=== PATIENT | male | born 1960 | race Caucasian/White ===

== ENCOUNTER 2019-07-15 13:53 | Outpatient (CLI) | payer OTHER, SELFPAY ==
--- NOTE | ~2019-07-15 | CT_ITS ---
EXAMINATION: CT lung screening EXAM DATE: 07/15/2019 14:32 INDICATION: Personal history of nicotine dependence. TECHNIQUE: Spiral low dose CT of the chest without contrast. Axial, coronal and sagittal images were reviewed. The dose-length product (DLP) for this examination was 93.21 mGy-cm. The exposure was ta ilored according to patient size (auto mA exposure control), and iterative reconstruction (ASIR) was used as additional dose reduction technique. There is no prior study for comparison. FINDINGS: There are several solid and subsolid pulmonary nodules identified in the right lung. Linea r right lower lobe atelectasis. Tracheobronchial tree is patent. There is no mediastinal, hilar or axillary lymphadenopathy. There are no pleural or pericardial effusions. There is no pneumothora x. Heart normal in size. No evidence of coronary arterial calcification. Upper abdomen is unremar kable. There is thoracic spondylosis without osteoblastic or osteolytic lesions identified. IMPRESSION: Lung-RADS category 2, benign appearance or behavior (<1% chance of malignancy); recommend continued LDCT screening in 1 year. Reviewed, dictated and finalized at location B. NING ASSOCIATE
== END 2019-07-15 13:54 | disposition home or self-care (01) ==
PROVIDERS: Visit Provider Family Medicine
DX: Z12.2 Encounter for screening for malignant neoplasm of respiratory organs (principal); Z87.891 Personal history of nicotine dependence
CPT/HCPCS: G0297

== ENCOUNTER 2019-12-14 10:28 | Outpatient (CLI) | payer OTHER, SELFPAY ==
--- NOTE | 2019-12-19 12:06 | SLEEP_ITS ---
Home Sleep Test DATE OF STUDY: 12/14/2019 ORDERING PHYSICIAN: Dr. Chavez. REASON FOR THIS STUDY: Hypersomnolence. HISTORY: The patient is a 59-year-old male, 5 feet 8 inches tall weighing 175 pounds with a body mass index of 26.6. He has a history of constantly snoring loudly every night to the point it bothers other people. He rarely awakens at night with heartburn or belching. He does not awaken from sleep feeling short of breath. He has difficulty falling asleep and he wakes up in the director of cardiology service line hours. This has been going on several years. He occasionally has trouble sleeping with a cold. He does not wake up gasping for breath at night and does not have breathing problems witnessed at night by others. He does not sweat excessively at night. He does not notice his heart pounding or beating irregularly at night. He frequently falls asleep during the day occasionally involuntarily, never while driving. He does not have loss of muscle tone with strong emotion and does not have daytime difficulties due to excessive sleepiness. He does not feel paralyzed on waking or falling asleep and does not have vivid dreamlike scenes upon awakening or falling asleep. He is never afraid to go to sleep. He does not have nightmares. He occasionally has dreams that he can recall. He occasionally has racing thoughts. He occasionally has anxiety. He rarely feels sad or depressed. He frequently has muscular tension and notice his parts of his body jerking. He occasionally has crawly achy feelings in his legs. He frequently has leg pain at night. He never has morning jaw pain. He does not grind his teeth at night. He frequently is bothered by pain during the day as well as pain that wakes him at night and frequently wakes up feeling stiff in the morning. He occasionally wakes up with sore achy muscles. He frequently wakes up with pain in the neck and spine. He has headaches and takes antacids regularly. He goes to bed between 10 and 11 p.m. and will flop around during the night. He wakes in the morning at 5 to 5:30 a.m. He estimates 6 hours of sleep at night. He does take naps. A short nap may be refreshing. He does feel good in the morning. MEDICAL COMORBIDITIES: Hypertension, gastroesophageal reflux disease, neck and low back pain. MEDICATIONS: 1. Metoprolol succinate 25 mg a day. 2. Hydrochlorothiazide 25 mg a day. 3. Amlodipine besylate 10 mg a day. 4. [employer] acid control medications daily. 5. Nasal allergy spray daily. HABITS: Tobacco, 1 pack per day. Caffeine, 1 pot or 8 cups per day. No alcohol. DESCRIPTION OF THE STUDY: On the [place] Sleepiness Scale, the score is 6. This was conducted as an unattended type 3 portable home sleep test with 4 channel monitoring including respiratory effort channel, snoring channel, oxygen saturation channel, and heart rate channel. This study was scored using [facility] guidelines. Duration was 7 hours 6 minutes. The apnea-hypopnea index is 17, which is elevated. Oxygen desaturation index is 15.5. There were 59 apneas. There were 36% of the apneas or 21 were central, 36% of the apneas or 21 were mixed and 29% of the apneas or 17 apneas were obstructive. He had 61 hypopneas. There were 1105 snoring events and 110 desaturations. The patient's lowest desaturation is 82%. The patient spent 3 minutes or 1% of the study below 88%. IMPRESSION: 1. This is an abnormal home sleep test with evidence of at least moderate sleep-disordered breathing, which appears to be primarily central events, G47.31. He had 72% of the apneas being central or mixed, 29% obstructive and and 61 hypopneas. This patient does not have a known history of congestive heart failure, but I would recommend obtaining an echo to try to se
== END 2019-12-14 10:29 | disposition home or self-care (01) ==
LOC: ANHCSM 10:28
PROVIDERS: Visit Provider Family Medicine
DX: R40.0 Somnolence (principal); G47.10 Hypersomnia, unspecified; G47.31 Primary central sleep apnea; I10 Essential (primary) hypertension; M54.2 Cervicalgia; M54.5 Low back pain
CPT/HCPCS: 95806

== ENCOUNTER 2020-01-18 14:29 | Outpatient (CLI) | payer OTHER, SELFPAY ==
--- NOTE | 2020-01-18 14:57 | ECHO_ITS ---
Patient Info Name: Mitch Juarez Age: 59 years : 1960 Gender: Male Ht: 67 in Wt: 176 lbs BSA: 1.96 m2 HR: 65 bpm BP: 114 / 89 mmHg Heart Rhythm: Sinus Rhythm Technical Quality: Good Exam Date: 01/18/2020 3:04 PM Exam Location: [facility] Pulmonary Patient Status: Outpatient Admit Date: 01/18/2020 Staff Ordering Physician: Warren Chavez MD Physician Gynecologist: Gopal Alicea RDCS Attending Provider: Warren Chavez MD Exam Type: CA echo doppler color flow Study Info Indications I10 - Essential (primary) hypertension Complete two-dimensional, color flow and Doppler transthoracic echocardiogram is performed. History/Risk Factors HTN, sleep apnea. Summary 1. Complete two-dimensional, color flow and Doppler transthoracic echocardiogram is performed. 2. Left ventricular chamber dimension is normal. 3. Left ventricular systolic function is normal, estimated at 65-70%. 4. There is mildly increased left ventricular wall thickness. 5. The left ventricular diastolic function is grade I diastolic dysfunction. 6. E/e' 7 is not elevated. 7. No pulmonary hypertension, estimated pulmonary arterial systolic pressure is 29 mmHg. Left Ventricle E/e' 7 is not elevated. Left ventricular chamber dimension is normal. Left ventricular systolic function is normal, estimated at 65-70%. There is mildly increased left ventricular wall thickness. The left ventricular diastolic function is grade I diastolic dysfunction. Right Ventricle Right ventricular chamber dimension is not well visualized. Left Atria Left atrial chamber dimension is normal. Right Atria Right atrial chamber dimension is normal. Aortic Valve The aortic valve is trileaflet. There is no aortic valve stenosis. There is no aortic valve regurgitation. Pulmonic Valve There is no pulmonic regurgitation. Mitral Valve There is no mitral valve stenosis. There is no mitral valve regurgitation. Tricuspid Valve There is no tricuspid valve regurgitation. No pulmonary hypertension, estimated pulmonary arterial systolic pressure is 29 mmHg. Pericardium/Pleural There is no pericardial effusion. Inferior Vena Cava Normal inferior vena cava with >50% collapse upon inspiration consistent with normal right atrial pressure, 5 mmHg. Aorta The aortic root size at the sinus of Valsalva is normal. Left Ventricular Outflow Tract Name Value Normal LVOT 2D LVOT Diameter 2.0 cm LVOT Doppler LVOT Peak Gradient 2 mmHg LVOT Mean Gradient 1 mmHg LVOT VTI 17 cm LVOT VTI/AV VTI Ratio 1.0 LVOT Stroke Volume 54 ml LVOT CO 3.5 l/min LVOT CI 1.8 l/min/m2 Mitral Valve Name Value Normal MV Doppler
== END 2020-01-18 14:30 | disposition home or self-care (01) ==
PROVIDERS: Visit Provider Family Medicine
DX: G47.39 Other sleep apnea (principal); I10 Essential (primary) hypertension
CPT/HCPCS: 93306

== ENCOUNTER 2020-03-28 00:22 | Outpatient (CLI) | payer OTHER, SELFPAY ==
[2020-03-28 18:51] LABS: SARS-CoV-2 RNA PCR Negative
== END 2020-03-28 00:23 | disposition home or self-care (01) ==
LOC: ANHCOVIDDT 00:23
PROVIDERS: PCP Family Medicine; Visit Provider Internal Medicine Critical Care Medicine
DX: Z01.812 Encounter for preprocedural laboratory examination (principal); Z20.828 Contact with and (suspected) exposure to other viral communicable diseases
CPT/HCPCS: 87635; C9803; U0003

== ENCOUNTER 2020-03-30 06:27 | Outpatient (CLI) | payer OTHER, SELFPAY ==
--- NOTE | 2020-04-29 10:39 | WPDSLEEPSTUD ---
Sleep Study Date of Study: 03/30/20 Ordering Provider: ,. Interpreting Physician: Sleep Study Type: CPAP Titration Height: 1.73 m Weight: 79.379 kg Body Mass Index: 26.6 Neck Circumference: 43.18 cm [place]: 6 Reason for Sleep Study Patient has longstanding history of snoring, and has hypertension requiring multiple medications. Few months ago patient had home sleep study with an apnea-hypopnea index of 17. Many episodes were central in nature, patient was therefore referred for a CPAP titration study. Sleep History Snoring, tendency to take naps in the afternoon. Comorbid conditions include hypertension requiring multiple medications, nasal allergies, gastroesophageal reflux. [facility] Past Medical History Medical History (Updated 02/09/20 @ 10:24 by Jessica Marion MD) Carpal tunnel syndrome of right wrist Chronic neck and back pain Diverticulitis of intestine with perforation of peritonitis Essential (primary) hypertension Hx of diverticulitis of colon Tobacco abuse Surgical History Surgical History (Updated 02/09/20 @ 10:23 by Jessica Marion MD) History of ankle surgery left History of carpal tunnel surgery History of colon surgery 2008 and removed partial colon History of thumb surgery Family History Family History (Updated 02/09/20 @ 10:24 by Jessica Marion MD) Mother Diabetes mellitus Obstructive sleep apnea on CPAP Father Hypertension Family history of emphysema Social History Social History Smoking packs per day: 1 Smoking cigarettes per day: 20.0 Years smoked: 46 Smoking pack-years: 46.00 Smoking status: Current every day smoker Tobacco type: cigarettes Second hand tobacco smoke exposure: Yes Alcohol intake: former Substance use: never Substance use type: does not use Medications Home Medications Medication Instructions Recorded Confirmed Type acetaminophen 500 mg tablet 500 mg PO Q4-6H PRN tablet 06/23/19 History hydrochlorothiazide 25 mg tablet See Rx Instructions .ROUTE 10/04/19 Rx .COMPLEX #90 tablet amlodipine 10 mg tablet 10 mg PO DAILY #90 tablet 12/02/19 Rx famotidine 20 mg tablet 20 mg PO DAILY 02/09/20 History fluticasone propionate 50 1 spray NASAL DAILY 02/09/20 History mcg/actuation nasal spray,suspension zolpidem 5 mg tablet 5 mg PO ONCE #2 tablet 02/09/20 Rx metoprolol succinate 25 mg 25 mg PO DAILY #90 tablet 03/01/20 Rx tablet,extended release 24 hr Sleep Procedure Patient underwent CPAP titration study. Nasal interface used was [employer] P10 nasal pillows of small size. Sleep Architecture Total recording time 407 minutes, total sleep time 358 minutes sleep efficiency 88%. Sleep latency 6.3 minutes, REM latency 115 minutes. Sleep stages patient was awake after sleep onset for 43 minutes, stage N1 was 7% stage N2 77.3% and stage R 15.8%. Supine sleep 50.3%. Respiratory Analysis During CPAP titration patient had 2 central apneas there were no obstructive or mixed apneas. Apnea index 0.3. There were 7 hypopneas with index of 1.2 Apnea-hypopnea index was 1.5. Arousals Patient had 62 arousals. Sixty of the arousals were spontaneous. Periodic Limb Movements No leg movements identified. Oximetry Data Mean oxygen saturation 93.6, maximum saturation 98, minimum saturation 91. Snoring Profile Intermittent snoring noted, on occasion loud. Cardiac Profile Sinus rhythm average heart rate 60 beats per minute range 54 to 109 beats per minute. EEG Profile Unremarkable EEG Assessment and Plan Additional Plan patient's CPAP was initiated at 5 cm and because of respiratory events was titrated to a level of 9 cm which was the highest pressure reached. At CPAP of 9 cm, patient had 2 hours and 16 minutes of trial, 1 hour 35 minutes of non-REM sleep and 9.5 minutes of REM sleep occurred. The REM sleep w
[2020-04-29 11:00] VITALS: BMI 26.6
== END 2020-03-30 06:28 | disposition home or self-care (01) ==
LOC: ANHCSM 06:27
PROVIDERS: PCP Family Medicine; Visit Provider Internal Medicine Critical Care Medicine
DX: G47.31 Primary central sleep apnea (principal)
CPT/HCPCS: 95811

== ENCOUNTER 2020-07-27 15:39 | Emergency (ER) | payer OTHER, SELFPAY ==
--- NOTE | 2020-07-27 17:16 | PC.NURSE ---
1540 upon arrival requests diagnostics to determine if his abdominal pain/bloating is a result of using his new c-pap machine or a recurrence of diverticulitis. informed provider would see and evaluate him, however, this facility could not provide blood work/ultrasound/ct scans for diagnostics. pt states he does not want to be seen at this time and would go directly to er, because he not want to pay 2 bills. observed talkative in no distress.
== END 2020-07-27 15:40 | disposition left against medical advice (07) ==
PROVIDERS: Emergency Provider Nurse Practitioner; PCP Family Medicine
DX: Z53.21 Procedure and treatment not carried out due to patient leaving prior to being seen by health care provider (principal)
CPT/HCPCS: 99199

== ENCOUNTER 2020-07-27 16:16 | Observation (INO) | payer OTHER, SELFPAY ==
--- NOTE | ~2020-07-27 | CT_ITS ---
EXAMINATION: CT abdomen pelvis wo con DATE: 07/27/2020 16:57 INDICATION: Right lower quadrant abdominal pain. TECHNIQUE: Computed tomography (CT) of the abdomen and pelvis was performed without intravenous contr ast. Automated exposure control and iterative reconstruction technique were employed. The dose-length product was 592.03 mGy-cm. COMPARISON: CT abdomen 10/12/2007 FINDINGS: The visualized portions of the lung bases demonstrate mild atelectasis on the right. There are 5 mm and 3 mm nodules in right middle lobe, likely benign. No pleural effusion. The heart size is normal. No pericardial effusion. There is diffuse hepatic steatosis. Calcifications in the spleen ar e consistent with old granulomatous disease. The gallbladder, pancreas, adrenal glands, and kidneys a re normal. There is no urolithiasis. There is an anastomosis in the rectosigmoid. There is diverticul osis of the colon. The appendix is normal. There is a 2.0 cm calcification in a diverticulum of ascen ding colon with surrounding fat stranding and local bowel wall thickening, consistent with diverticul itis. There are no pathologically enlarged lymph nodes. There is no free intraperitoneal fluid. There is moderate lumbar spondylosis. IMPRESSION: 1. Diverticulitis of ascending colon. No perforation or abscess. Reviewed, dictated and finalized at location A. STIGATOR
[2020-07-27 16:18] VITALS: BP 129/99; PULSE 76; RESP 16; TEMP 36.4; O2SAT 100
[2020-07-27 17:18] LABS: Basophils Absolute Auto 0.1 K/mm3 (0.0-0.1); Basophils Percent Auto 0.6 % (0.2-1.2); Eosinophils Absolute Auto 0.2 K/mm3 (0-0.3); Eosinophils Percent Auto 1.9 % (0-4.4); Hematocrit 46.1 % (42.0-52.0); Hemoglobin 16.4 g/dL (14.0-18.0); Immature Granulocyte Absolute 0.05 K/mm3 (0.00-0.031); Immature Granulocyte Percent A 0.4 % (0-0.5); Lymphocytes Absolute Auto 2.35 K/mm3 (0.9-3.2); Lymphocytes Percent Auto 19.7 % (18.3-44.2); Mean Corpuscular HGB Conc 35.6 g/dl (32-36); Mean Corpuscular Hemoglobin 31.6 pg (26-34); Mean Corpuscular Volume 88.8 fl (80-100); Mean Platelet Volume 9.6 fl (7.4-10.4); Monocytes Absolute Auto 1.5 K/mm3 (0.1-0.6); Monocytes Percent Auto 12.1 % (2.6-8.5); Neutrophils Absolute Auto 7.8 K/mm3 (1.3-6.7); Neutrophils Percent Auto 65.3 % (45.5-73.1); Platelet Count Result 228 k/mm3 (150-375); Red Blood Count 5.19 M/mm3 (4.6-6.20); Red Cell Distribution Width 12.5 % (11.5-14.5); White Blood Count 11.9 K/mm3 (4.5-10.0)
[2020-07-27 17:32] LABS: Alanine Aminotransferase 30 U/L (4-50); Albumin Level 4.2 g/dL (3.5-5.1); Alkaline Phosphatase 66 U/L (38-126); Anion Gap 7 mmol/L (8-16); Aspartate Amino Transferase 24 U/L (17-59); Bilirubin,Total 0.6 mg/dL (0.2-1.3); Blood Urea Nitrogen 14 mg/dL (9-20); Calcium 9.2 mg/dL (8.4-10.2); Carbon Dioxide 31 mmol/L (22-30); Chloride 102 mmol/L (98-107); Estimated CRCL calculation 81 ml/min; Estimated Glomerular Filt Rate > 60; Glucose 90 mg/dL (75-110); Potassium 3.7 mmol/L (3.4-5.0); Sodium 140 mmol/L (137-145)
--- NOTE | 2020-07-27 17:37 | ED.ABDPAIN ---
HPI - Abdominal Pain General Chief Complaint: Abdominal Pain Stated Complaint: abd pain Time Seen by Provider: 07/27/20 16:32 Source: patient Mode of arrival: ambulatory Limitations: no limitations History of Present Illness HPI narrative: 60-year-old male History of prior colon resection for diverticulitis, most recently in 2018, and that his gallbladder and appendix remain in situ following those procedures Complains of a 2-day history of lower abdominal pain Discomfort is worsened and localized to the right mid abdomen and flank area Has had nausea and tended towards constipation, continues to pass gas Notes that he recently started using CPAP at night and this was resulted in some issues with abdominal bloating and distention and discomfort as well He has not had a fever, and he did eat lunch earlier today Related Data Home Medications Medication Instructions Recorded Confirmed acetaminophen 500 mg tablet 500 mg PO Q4-6H PRN tablet 06/23/19 famotidine 20 mg tablet 20 mg PO DAILY 02/09/20 07/27/20 fluticasone propionate 50 1 spray NASAL DAILY 02/09/20 07/27/20 mcg/actuation nasal spray,suspension Allergies Allergy/AdvReac Type Severity Reaction Status Date / Time tetanus toxoid, adsorbed Allergy Unknown TOLD Verified 07/27/20 15:45 CHILD--???REACTION Tetanus Vaccines and Toxoid Allergy Unknown Unknown Verified 07/27/20 16:23 Review of Systems Review of Systems: All systems reviewed & are unremarkable except as noted in HPI and below Constitutional: Constitutional: Denies chills, Denies fatigue, Denies fever(s), Denies headache(s) and Denies weakness Eyes: Eyes: Reports no additional eye complaints and Denies change in vision ENT: Denies headache(s), Denies nasal congestion and Denies sore throat Cardiovascular: Cardiovascular: Denies chest pain, Denies leg edema, Denies palpitations and Denies dyspnea Respiratory: Respiratory: Denies cough and Denies dyspnea Gastrointestinal: Gastrointestinal: Reports abdominal pain, Reports bloating, Reports constipation, Denies diarrhea, Reports nausea and Denies vomiting Genitourinary: Genitourinary: Denies hematuria, Denies dysuria and Denies urinary frequency Musculoskeletal: Musculoskeletal: Denies myalgias, Denies deformity, Denies muscle weakness and Denies numbness Integumentary/Breasts: Skin/Breast: Denies rash and Denies wounds Neurologic: Denies headache(s) Endocrine: Endocrine: Denies fatigue and Denies palpitations Hematologic/Lymphatic: Hematologic/Lymphatic: Denies easy bleeding and Denies easy bruising PMFSH Past Medical History Medical History (Updated 07/27/20 @ 18:34 by Edgar Griffith MD) Carpal tunnel syndrome of right wrist Chronic neck and back pain Diverticulitis of intestine with perforation of peritonitis Essential (primary) hypertension Hx of diverticulitis of colon Tobacco abuse Surgical History Surgical History (Updated 02/09/20 @ 10:23 by Jessica Marion MD) History of ankle surgery left History of carpal tunnel surgery History of colon surgery 2008 and removed partial colon History of thumb surgery Family History Family History (Updated 02/09/20 @ 10:24 by Jessica Marion MD) Mother Diabetes mellitus Obstructive sleep apnea on CPAP Father Hypertension Family history of emphysema Social History Social History Smoking packs per day: 1 Smoking cigarettes per day: 20.0 Years smoked: 46 Smoking pack-years: 46.00 Smoking status: Current every day smoker Tobacco type: cigarettes Second hand tobacco smoke exposure: Yes Alcohol intake: former Substance use: never Substance use type: does not use Gender identity (if verbalized by the patient): Male Exam Const: General: no acute distress, well developed, alert and awake Nutritional Appearance: well nourished Orientation/consciousness: patient oriented x3 (alert)
[2020-07-27 17:46] VITALS: BP 113/90; PULSE 78; RESP 18; O2SAT 99
[2020-07-27 18:24] LABS: Add Urine Microscopic? YES; Appearance Urine Clear (Clear); Bilirubin Urine Negative (Negative); Blood Urine 1+ (Negative); Color Urine Yellow (Yellow); Glucose Urine UA Negative (Negative); Ketones Urine Negative (Negative); Leukocyte Esterase Ur Negative LEU/UL (Negative); Mucus Urine Moderate /lpf; Nitrate Urine Negative (Negative); Protein Urine Negative (Negative); Specific Grav Ur 1.018 (1.001-1.035); Urobilinogen Urine Negative mg/dL (<2.0); WBC Urine 0-3 /hpf
[2020-07-27] MEDS: LACTATED RINGERS 1,000 ML 150 ML IV CONT ×2 (18:37→20:32)
--- NOTE | 2020-07-27 19:46 | ADMGEN ---
This patient, Mitch Juarez Jr., was admitted to Medical Room 340-01. Patient/family oriented to hospital policies and general routines including ID bracelet, bed and alarms, visiting hours, pain management, procedures, bathroom and other care routines, personal items, smoking policy, room service/diet, and visiting hours. Information on how to activate the Rapid Response Team has been discussed. Patient/Family are encouraged to report perceived risks to care and to ask questions if they do not understand what they are told or what they should do.
[2020-07-27 19:47] VITALS: BP 130/93; PULSE 71; RESP 18; TEMP 36.8; O2SAT 99; BMI 28.0
[2020-07-27 19:55] VITALS: BP 130/93; PULSE 71; TEMP 36.8; BMI 28.0
[2020-07-27 21:55] VITALS: O2SAT 97
--- NOTE | 2020-07-27 23:29 | PM.IMHP ---
H&P: HPI History of Present Illness Date/Time: 07/27/20 23:29 this is a 60-year-old male who has had a history of diverticulitis in the past. The patient had a history of diverticulitis with perforation past and infection. The also had a diverticulitis that was treated in the office in the past as well. The patient had his Matt Gutierrez is COVID 19 vaccine past Thursday and then started having abdominal pain the next day. Initially he felt that he was having side effects from injection. His pain started approximately 2 days ago he had right lower quadrant flank pain. He was having difficulty walking due to the pain. He has not taken anything for the discomfort. His pain continued to get worse. He had no fever chills. No nausea, vomiting, or diarrhea. The patient has not had a bowel movement 2 days. He has not tried any laxatives. CT of the abdomen and pelvis was read as diverticulitis of ascending colon. No perforation or abscess seen.On Zosyn. 2.0 cm calcification and a diverticulum of ascending colon with surrounding fat stranding and local bowel wall thickening consistent with diverticulitis. Surgery had been consulted since there was a calcification in the diverticulum. The patient does have a history of sleep apnea but is not concerned about using his CPAP tonight. He also has a history of bronchitis and is requesting to see his automotive general manager even though he is not having any respiratory problems at this time. White count is noted to be 11.9. I explained to the patient that sometimes diverticulitis diagnosis could be admitted for up to 3 days or more. The patient stated he would like to go home tomorrow. He is being admitted to inpatient on 07/27/2020 date of service. Chief Complaint: Abdominal pain Review of Systems Review of Systems: All systems reviewed & are unremarkable except as noted in HPI and below Constitutional: Constitutional: Reports as per HPI and Reports no additional constitutional complaints Eyes: Eyes: Reports as per HPI and Reports no additional eye complaints ENT: Reports system reviewed and no additional complaints, except as documented and Reports Normal hearing present Cardiovascular: Cardiovascular: Reports no additional cardiovascular complaints Respiratory: Respiratory: Reports no additional respiratory complaints and Reports no additional respiratory complaints Gastrointestinal: Gastrointestinal: Reports as per HPI and Reports no additional gastrointestinal complaints Musculoskeletal: Musculoskeletal: Reports no additional musculoskeletal complaints Integumentary/Breasts: Skin/Breast: Reports system reviewed and no additional complaints, except as docu and Reports as per HPI Neurologic: Reports system reviewed and no additional complaints, except as documented, Reports as per HPI and Reports Normal hearing present Psychiatric: Psychiatric: Reports no additional psychiatric complaints and Reports as per HPI Endocrine: Endocrine: Reports no additional endocrine complaints Hematologic/Lymphatic: Hematologic/Lymphatic: Reports no additional hematologic/lymphatic complaints Allergic/Immunologic: Allergic/Immunologic: Reports no additional allergic/immunologic complaints [facility] Past Medical History Medical History (Updated 07/27/20 @ 23:49 by Latosha Quinteros NP) Carpal tunnel syndrome of right wrist Chronic bronchitis Chronic neck and back pain Diverticulitis of intestine with perforation of peritonitis Essential (primary) hypertension Hx of diverticulitis of colon Tobacco abuse Surgical History Surgical History (Updated 07/27/20 @ 23:49 by Latosha Quinteros NP) History of ankle surgery left History of carpal tunnel surgery Right hand History of colon surgery 2008 and removed partial colon History of thumb surgery S/P cubital tunnel release Family History Family History Mother Diabetes mellitus Obstructive sleep apnea
[2020-07-28 02:36] LABS: Basophils Absolute Auto 0.1 K/mm3 (0.0-0.1); Basophils Percent Auto 0.5 % (0.2-1.2); Eosinophils Absolute Auto 0.2 K/mm3 (0-0.3); Eosinophils Percent Auto 1.9 % (0-4.4); Hematocrit 42.1 % (42.0-52.0); Hemoglobin 14.9 g/dL (14.0-18.0); Immature Granulocyte Absolute 0.05 K/mm3 (0.00-0.031); Immature Granulocyte Percent A 0.4 % (0-0.5); Lymphocytes Absolute Auto 2.01 K/mm3 (0.9-3.2); Lymphocytes Percent Auto 16.5 % (18.3-44.2); Mean Corpuscular HGB Conc 35.4 g/dl (32-36); Mean Corpuscular Hemoglobin 31.4 pg (26-34); Mean Corpuscular Volume 88.6 fl (80-100); Mean Platelet Volume 9.6 fl (7.4-10.4); Monocytes Absolute Auto 1.5 K/mm3 (0.1-0.6); Monocytes Percent Auto 11.9 % (2.6-8.5); Neutrophils Absolute Auto 8.4 K/mm3 (1.3-6.7); Neutrophils Percent Auto 68.8 % (45.5-73.1); Platelet Count Result 198 k/mm3 (150-375); Red Blood Count 4.75 M/mm3 (4.6-6.20); Red Cell Distribution Width 12.4 % (11.5-14.5); White Blood Count 12.2 K/mm3 (4.5-10.0)
[2020-07-28 02:47] LABS: Alanine Aminotransferase 25 U/L (4-50); Albumin Level 3.6 g/dL (3.5-5.1); Alkaline Phosphatase 59 U/L (38-126); Anion Gap 3 mmol/L (8-16); Aspartate Amino Transferase 20 U/L (17-59); Bilirubin,Total 1.3 mg/dL (0.2-1.3); Blood Urea Nitrogen 11 mg/dL (9-20); Calcium 8.9 mg/dL (8.4-10.2); Carbon Dioxide 29 mmol/L (22-30); Chloride 105 mmol/L (98-107); Estimated CRCL calculation 92 ml/min; Estimated Glomerular Filt Rate > 60; Glucose 109 mg/dL (75-110); Magnesium 1.8 mg/dL (1.6-2.3); Potassium 3.6 mmol/L (3.4-5.0); Sodium 137 mmol/L (137-145)
--- NOTE | 2020-07-28 03:32 | PCRCNOTE ---
PT WEARS CPAP AT HOME BUT HAS C/O EXCESSIVE GAS/BLOATING SINCE HOME CPAP INITIATED. HE DOES NOT WANT TO USE HOSPITAL CPAP AT THIS TIME UNTIL HE SPEAKS WITH COMPOUND FINISHER. JEAN THURSTON WAS NOTIFIED OF PT CONCERNS.
[2020-07-28] MEDS: LACTATED RINGERS 1,000 ML 150 ML IV CONT (03:59)
[2020-07-28 05:42] VITALS: BP 123/74; PULSE 61; RESP 18; TEMP 37.3; O2SAT 98
[2020-07-28 08:08] VITALS: O2SAT 98
[2020-07-28 08:34] VITALS: PULSE 61
[2020-07-28] MEDS: METOPROLOL SUCCINATE EXT REL 25 MG TABCR PO (08:34)
[2020-07-28] MEDS: amLODIPine BESYLATE 5 MG TABLET 10 MG PO (08:34)
[2020-07-28] MEDS: hydroCHLOROthiazide 25 MG TABLET PO (08:35)
--- NOTE | 2020-07-28 10:32 | PM.CNGS ---
Assessment and Plan Assessment and plan (1) Diverticulitis large intestine w/o perforation or abscess w/o bleeding: Code(s): K57.32 - Diverticulitis of large intestine without perforation or abscess without bleeding Status: Acute Assessment and Plan: unusual case of ascending colon diverticulitis after having sigmoidectomy for sigmoid diverticulitis 13 years ago. I explained the difference to the patient. This is also unique in that there is a sizable fecalith associated with a diverticulum that appears to be inflamed on CT scan. I reviewed some literature regarding this and reports are very scarce. There is no difference in management for a fecalith associated with diverticulitis than without of fecalith as best I can tell. Patient is doing much better today with pain being essentially gone and having had a bowel movement. I will keep him in the hospital today however and continue IV Zosyn antibiotics. Will start full liquids and this can be advanced to low residue diet later today if patient tolerates okay. I did explain to him that should his pain recur, we would probably be looking at a right colectomy. This should not require another stoma. Continue Zosyn, recheck labs again tomorrow, start oral intake and ambulate. Hopefully patient will continue to improve and can be discharged tomorrow. (2) Fecalith: Code(s): K56.41 - Fecal impaction Status: Chronic Assessment and Plan: One option may be to have colonoscopy in 4-6 weeks and consider endoscopic removal of the fecalith. I may have GI see him as an outpatient to consider this. Discussed this with the patient as well. (3) Tobacco abuse: Code(s): Z72.0 - Tobacco use Status: Chronic Assessment and Plan: Advised to quit. (4) Essential (primary) hypertension: Code(s): I10 - Essential (primary) hypertension Status: Chronic (5) Chronic bronchitis: Code(s): J42 - Unspecified chronic bronchitis Status: Chronic (6) Central sleep apnea: Code(s): G47.31 - Primary central sleep apnea Status: Chronic History of Present Illness Consult details Consult date: 07/28/20 Reason for consult: abdominal pain Requesting physician: Edgar Griffith MD Narrative: Patient is a 60-year-old man who started having right-sided abdominal pain about 2 days ago on July 25. He had received A [employer] COVID vaccination 2 days prior to that and initially thought that his abdominal pain was a consequence of the vaccine. The pain got worse. He had not had a bowel movement for a couple of days. He came to the emergency room. He was noted to have right-sided abdominal tenderness with some guarding. His white blood cell count was elevated to 11,900. He had a history in 2007 of sigmoidectomy with Shelly procedure and descending colostomy. He later that year had laparoscopic closure of his colostomy. This surgery was done for sigmoid diverticulitis. The patient had a CT scan of the abdomen and pelvis in the emergency room. This showed ascending colon diverticulitis with the unusual finding of a 2 cm calcification in the offending diverticulum. No free air or other complicating factors were noted with the CT scan. The patient has been on Zosyn and bowel rest since admission. He feels much better this morning. He has not had anything for pain. He is a smoker and consequently would very much like to go home today. He has no nausea and vomiting. He has not had any problems with diverticulitis since his surgery in 2007 until the current episode. Review of Systems Review of Systems: All systems reviewed & are unremarkable except as noted in HPI and below Constitutional: Constitutional: Denies chills and Denies fever(s) Cardiovascular: Cardiovascular: Denies chest pain, Denies diaphoresis, Denies dyspnea and Denies paroxysmal nocturnal dyspnea Respiratory: Respiratory: Denies chest congestion, Denies cou
--- NOTE | 2020-07-28 12:00 | PM.IMPN ---
Progress Note: A&P Assessment and Plan (1) Diverticulitis: Code(s): K57.92 - Diverticulitis of intestine, part unspecified, without perforation or abscess without bleeding Status: Acute Assessment and Plan: Ascending colon diverticulitis with 2.0cm calcification in a diverticulum of the ascending colon consistent with fecalith. He has a hx of sigmoidectomy for diverticulitis in 2007. WBC mildly increased but clinically, patient is much better. He is afebrile. Appreciate general surgery consult and recommendations. Pt demonstrates significant improvement with antibiotic therapy and may require right colectomy in the future should pain recur. Additional consideration includes GI consultation outpatient in 4-6 weeks for endoscopic removal of fecalith. Will defer this decision to general surgery. Continue IV zosyn Advance diet as tolerated Continue analgesics as needed Stop IV fluids as pt is tolerating PO intake well (2) Essential (primary) hypertension: Code(s): I10 - Essential (primary) hypertension Status: Chronic Assessment and Plan: Blood pressures are at target. Most recent BP 123/74. Continue amlodipine, metoprolol, and hydrochlorothiazide Continue to monitor (3) Tobacco abuse: Code(s): Z72.0 - Tobacco use Status: Chronic Assessment and Plan: He is smoking just under 1PPD. He has approximately 46 pack-year smoking hx. He declines nicotine patch I had a long discussion with the patient for 10 minutes today regarding adverse effects of smoking and he verbalized understanding but demonstrates no motivation to quit and asked that I stop discussing this since it makes him crave a cigarette. I still reiterated the risk of adverse cardiovascular outcomes, risk for cancer, etc. and he verbalized understanding. (4) Central sleep apnea: Code(s): G47.31 - Primary central sleep apnea Status: Chronic Assessment and Plan: He reports some gas discomfort with bloating, flatulence, and belching after CPAP use. Continue CPAP titrated to home settings He is scheduled to see his co chairman, Dr. Marion, and I will reach out to pulmonology to see if they have any recommendations to minimize this. Subjective Date/time seen: 07/28/20 12:00 Mr. Juarez is a 60 y.o. male with PMH significant for diverticulitis with sigmoidectomy with Shelly procedure and descending colostomy in 2007, hypertension, chronic bronchitis, CAMRYN, and tobacco dependence who is seen in follow-up for diverticulitis. He is doing well today. His abdominal pain has improved significantly. He has a bit of discomfort when he gets up to move around in his right lower abdomen but pain is much better. He was advanced to full liquid diet which he is tolerating well. He has no nausea or vomiting. He had a bowel movement with regular formed stool. He denies subjective fever and chills. He denies chest pain and palpitations. He denies shortness of breath and cough. He does note some abdominal bloating, belching, and flatulence associated with his CPAP and is scheduled to see Dr. Marion to discuss this. He has no voiding concerns. Review of Systems Review of Systems: All systems reviewed & are unremarkable except as noted in HPI and below Exam Narrative: Exam Narrative: General: Very pleasant, well-developed, and well-nourished 60 y.o. male sitting in the chair at the bedside eating lunch in no acute distress. HEENMT: Normocephalic and atraumatic. EOMI. Corrective lenses in place. Oral mucosa tacky. Neck: Supple. Cardiac: Regular rate and rhythm. S1 and S2 normal. Lungs: Effort normal. Lungs are clear to auscultation bilaterally. Abdomen:LLQ scar from prior colostomy which is healed. Lower midline scar from bowel resection, healed. Bowel sounds normoactive. Abdomen is soft, non-distended, and very mildly tender at right mid abdomen. No guarding or rebound tenderness. Extremities:
[2020-07-28 13:25] VITALS: BP 122/81; PULSE 70; RESP 20; TEMP 36.8; O2SAT 96
[2020-07-28] MEDS: FAMOTIDINE 20 MG TABLET PO (17:03)
[2020-07-28] MEDS: FLUTICASONE PROPIONATE 0.05% NA SPR 16 GM BTL (*BKC) 1 SPRAY NASAL (17:03)
[2020-07-28] MEDS: ACETAMINOPHEN 500 MG TABLET PO (17:11)
[2020-07-28 19:41] VITALS: BP 104/83; PULSE 65; RESP 18; TEMP 36.8; O2SAT 98
--- NOTE | 2020-07-29 03:22 | PC.NURSE ---
Daylight Savings Time For Daylight Savings Time Ending in the Fall - Clocks are moved back. For Daylight Savings Time Beginning in the Spring - Clocks are moved ahead. For [facility], the time of change occurs at 0200 hrs. Time is taken from the server software engineer. This entry on the patient's chart recognizes the change in time reflected during documentation. Example: 2 entries for vital signs may be charted for 0200 hrs.
[2020-07-29 05:28] VITALS: BP 108/78; PULSE 67; RESP 12; TEMP 37.1; O2SAT 98
[2020-07-29 06:00] LABS: Hemoglobin 14.8 g/dL (14.0-18.0); Mean Corpuscular HGB Conc 34.4 g/dl (32-36); Mean Corpuscular Hemoglobin 30.9 pg (26-34); Mean Corpuscular Volume 89.8 fl (80-100); Mean Platelet Volume 9.6 fl (7.4-10.4); Platelet Count Result 217 k/mm3 (150-375); Red Blood Count 4.79 M/mm3 (4.6-6.20); Red Cell Distribution Width 12.3 % (11.5-14.5); White Blood Count 10.2 K/mm3 (4.5-10.0)
[2020-07-29 06:16] LABS: Anion Gap 5 mmol/L (8-16); Blood Urea Nitrogen 15 mg/dL (9-20); Calcium 8.9 mg/dL (8.4-10.2); Carbon Dioxide 28 mmol/L (22-30); Chloride 106 mmol/L (98-107); Estimated CRCL calculation 73 ml/min; Estimated Glomerular Filt Rate > 60; Glucose 108 mg/dL (75-110); Potassium 3.9 mmol/L (3.4-5.0); Sodium 139 mmol/L (137-145)
[2020-07-29 08:26] VITALS: PULSE 67
[2020-07-29] MEDS: METOPROLOL SUCCINATE EXT REL 25 MG TABCR PO (08:26)
[2020-07-29] MEDS: hydroCHLOROthiazide 25 MG TABLET PO (08:26)
[2020-07-29] MEDS: amLODIPine BESYLATE 5 MG TABLET 10 MG PO (08:27)
[2020-07-29] MEDS: ACETAMINOPHEN 500 MG TABLET PO (08:31)
--- NOTE | 2020-07-29 10:05 | PM.PNGS ---
Progress Note: A&P Assessment and Plan (1) Diverticulitis large intestine w/o perforation or abscess w/o bleeding: Code(s): K57.32 - Diverticulitis of large intestine without perforation or abscess without bleeding Status: Acute Assessment and Plan: patient continues to improve. Essentially no pain at all at this time. Discussed with Cheyanne Blanco, PAC, hospitalist. okay to discharge on a low residue diet and oral antibiotics for another 7 days. I will see him in the office in 2 weeks. We will consider colonoscopy for attempt at removal of the fecalith. All questions were answered. (2) Fecalith: Code(s): K56.41 - Fecal impaction Status: Chronic Assessment and Plan: Not clear the significance of this in recurrence of ascending colon diverticulitis. Definitely makes recurrence a concern. See above. (3) Tobacco abuse: Code(s): Z72.0 - Tobacco use Status: Chronic (4) Central sleep apnea: Code(s): G47.31 - Primary central sleep apnea Status: Chronic Assessment and Plan: Will discuss CPAP settings with Dr. Marion as an outpatient. (5) Essential (primary) hypertension: Code(s): I10 - Essential (primary) hypertension Status: Chronic Subjective Subjective Date/Time Seen: 07/29/20 10:05 Patient reports: no new complaints, pain is less and afebrile Interval history: Only discomfort is when he turns in bed. Otherwise completely pain-free. Review of Systems Review of Systems: All systems reviewed & are unremarkable except as noted in HPI and below Constitutional: Constitutional: Denies headache(s) Cardiovascular: Cardiovascular: Denies chest pain and Denies dyspnea Respiratory: Respiratory: Denies cough, Denies dyspnea and Reports other ( Has a lot of gas from using his CPAP device) Gastrointestinal: Gastrointestinal: Reports as per HPI Neurologic: Denies confusion and Denies headache(s) Exam Const: General: comfortable and no acute distress; No confusion Orientation/consciousness: patient oriented x3 and No confusion GI: Inspection: normal to inspection, non-distended and scar GI Palp: Yes Soft to palpation, No Tenderness to palpation present (GI), No Guarding due to palpation present (GI), No Palpable mass present and No Rebound tenderness present Auscultation: normoactive bowel sounds Neuro: General: patient oriented x3, no focal motor deficits and No confusion Extrem: General: no calf tenderness and no edema Psych: Affect: normal affect Insight: Good insight present (Psych) Judgement: Good judgement present (Psych) Objective Data Vital Signs Vital Signs: Vital Signs - 24 hr 07/28/20 13:25 07/28/20 19:41 07/29/20 05:28 Temperature 36.8 C 36.8 C 37.1 C Pulse Rate 70 65 67 Respiratory Rate 20 18 12 Blood Pressure 122/81 104/83 108/78 Pulse Oximetry 96 98 98 07/29/20 08:26 Temperature Pulse Rate 67 Respiratory Rate Blood Pressure Pulse Oximetry Intake/Output Intake/Output: Intake & Output 07/26/20 07/27/20 07/28/20 07/30/20 23:59 23:59 23:59 00:59 Intake Total 1050 3120 740 Output Total 650 2050 450 Balance 400 1070 290 Meds/Results Medications: Active Medications Generic Name Dose Route Start Last Admin Trade Name Freq PRN Reason Stop Dose Admin Acetaminophen 500 mg 07/28/20 10:25 07/29/20 08:31 Acetaminophen 500 Mg Tablet PO 500 mg Q6H PRN Administration Mild Pain (1-3) or Fever Hydrocodone Bitart/Acetaminophen 1 tab 07/28/20 10:25 Hydrocodone/Acetaminophen (*Crx) 5-325 Mg Tablet PO Q4H PRN Pain Rated 4-6 Amlodipine Besylate 10 mg 07/28/20 09:00 07/29/20 08:27 Amlodipine Besylate 5 Mg Tablet PO 10 mg DAILY SARBJIT Administration Enoxaparin Sodium 40 mg 07/29/20 09:00 07/29/20 08:27 Enoxaparin 40 Mg/0.4 Ml Syringe SUB-Q Not Given DAILY SARBJIT Famotidine 20 mg 07/28/20 17:00 07/28/20 17:03 Famotidine 20 Mg Tablet PO 20
--- NOTE | 2020-07-29 10:39 | PM.DS ---
DS: Admitting Diagnosis Admitting Diagnosis Admitting Diagnosis: Diverticulitis DS: Discharge Diagnosis Discharge Diagnosis (1) Diverticulitis: Code(s): K57.92 - Diverticulitis of intestine, part unspecified, without perforation or abscess without bleeding Status: Acute Assessment and Plan: Discharge Summary (Date of service 07/29/20): Mr. Juarez is a 60 y.o. male with PMH significant for diverticulitis with sigmoidectomy w/ Shelly procedure and descending colostomy in 2007, hypertension, chronic bronchitis, CAMRYN, and tobacco dependence who presented to the emergency department on 07/27/20 for the evaluation of abdominal pain for two days in the right mid and lower abdomen. He reported associated nausea but no fever or chills. Vitals were stable on arrival to the emergency department. Labs notable for WBC elevated at 11,900 and CO2 mildly elevated at 31. CT abd/pelvis demonstrated 2.0 cm calcification in a diverticulum of ascending colon with surrounding fat stranding and local bowel wall thickening consistent with diverticulitis. There were also 5 mm and 3 mm nodules in the right middle lobe. He was treated with IV zosyn and admitted to the hospitalist service with general surgery consult. He demonstrated significant improvement with antibiotic therapy with minimal pain. He was tolerating low fiber diet well. WBC improved and he remained afebrile. General surgery, Dr. Barros, discussed that he may require right colectomy in the future should pain recur. Additional consideration includes referral to GI outpatient in 4-6 weeks for endoscopic removal of fecalith per general surgery. He was advised to follow-up with Dr. Barros's office for a follow-up appointment. He was felt stable from a general surgery standpoint and he was discharged in hemodynamically stable condition on the morning of 07/29/20. He will continue oral metronidazole and ciprofloxacin for 7 days. Please see additional diagnoses for further information. (2) Essential (primary) hypertension: Code(s): I10 - Essential (primary) hypertension Status: Chronic Assessment and Plan: Blood pressures were well-controlled. Amlodipine, metoprolol, and hydrochlorothiazide were continued at discharge. (3) Tobacco abuse: Code(s): Z72.0 - Tobacco use Status: Chronic Assessment and Plan: He is smoking just under 1PPD. He has approximately 46 pack-year smoking hx. He declined nicotine patch or other pharmacotherpy to aid in smoking cessation. I had a long discussion with the patient both days I saw him regarding the adverse effects of smoking. He verbalized understanding but demonstrated no motivation to quit and asked that I stop discussing this since altogether. I still reiterated the risk of adverse cardiovascular and cardiopulmonary outcomes, risk for cancer, etc. and he verbalized understanding. (4) Central sleep apnea: Code(s): G47.31 - Primary central sleep apnea Status: Chronic Assessment and Plan: He reported some gas discomfort with bloating, flatulence, and belching after CPAP use. He follows with Dr. Marion. I encouraged the patient to call Dr. Marion's office on Thursday as he will need adjustments on his CPAP machine to try to minimize this. (5) Lung nodule < 6cm on CT: Code(s): R91.1 - Solitary pulmonary nodule Status: Acute Assessment and Plan: There were also 5 mm and 3 mm nodules in the right middle lobe. He follows with pulmonology and may benefit from follow-up imaging given smoking hx. He needs to stop smoking immediately. He was advised to follow-up with his putty remover and PCP. (6) Hepatic steatosis: Code(s): K76.0 - Fatty (change of) liver, not elsewhere classified Status: Acute Assessment and Plan: Visualized on CT abd/pelvis. Recommend outpatient follow-up with PCP. DS: Summary Hospital Course Reason for hospitalization: Diverticulitis [facility]
--- NOTE | 2020-08-02 13:38 | PC.NURSE ---
Blood cx are negative
== END 2020-07-29 11:00 | disposition home or self-care (01) ==
LOC: ANHED 18:34 → ANH3MED 18:53
PROVIDERS: Nurse Practitioner; Surgery; Admitting Provider Internal Medicine; Emergency Provider Emergency Medicine; PCP Family Medicine; Visit Provider Physician Assistant
DX: K57.92 Diverticulitis of intestine, part unspecified, without perforation or abscess without bleeding (principal); K56.41 Fecal impaction; I10 Essential (primary) hypertension; J42 Unspecified chronic bronchitis; F17.210 Nicotine dependence, cigarettes, uncomplicated; G47.33 Obstructive sleep apnea (adult) (pediatric); Z90.49 Acquired absence of other specified parts of digestive tract
CPT/HCPCS: 36415; 74176; 80048; 80053; 81001; 83735; 84443; 85025; 85027; 87040; 96361; 96365; 96366; 99285; A9270; G0378; J2543; J7120

== ENCOUNTER → 2020-09-21 00:16 | Outpatient (CLI) | payer OTHER, SELFPAY ==
[2020-09-21 18:42] LABS: SARS-CoV-2 RNA PCR Negative
== END ==
PROVIDERS: PCP Family Medicine; Visit Provider Internal Medicine Gastroenterology
DX: Z01.812 Encounter for preprocedural laboratory examination (principal); Z20.822 Contact with and (suspected) exposure to COVID-19
CPT/HCPCS: C9803; U0003; U0005

== ENCOUNTER 2020-09-24 00:41 | Day surgery (SDC) | payer OTHER, SELFPAY ==
[2020-09-14 10:27] VITALS: BMI 27.3
--- NOTE | 2020-09-24 10:11 | WPDANESEPPF ---
Anes - Initial Pre Proc Eval Procedure: Operation Date: 09/24/20 11:15 Proposed Procedures p Colonoscopy - Rico Varma MD Date/Time: 09/24/20 10:11 Surgeon: Rico Varma MD Pre Op Diagnosis: diverticulitis, fecal impaction Patient Data Age: 60 Gender: M Height: 5 ft 7.25 in Weight: 80 kg Allergies Allergy/AdvReac Type Severity Reaction Status Date / Time tetanus toxoid, adsorbed Allergy Severe TOLD Verified 09/24/20 10:09 CHILD--???REACTION Tetanus Vaccines and Toxoid Allergy Severe Unknown Verified 09/24/20 10:09 Home Medications Medication Instructions Recorded Confirmed Type acetaminophen 500 mg tablet 500 mg PO Q4-6H PRN tablet 06/23/19 09/24/20 History famotidine 20 mg tablet 20 mg PO QPM 02/09/20 09/14/20 History fluticasone propionate 50 1 spray NASAL DAILY 02/09/20 09/14/20 History mcg/actuation nasal spray,suspension amlodipine 10 mg PO DAILY 09/14/20 09/24/20 History hydrochlorothiazide 25 mg PO DAILY 09/14/20 09/24/20 History metoprolol succinate 25 mg PO DAILY 09/14/20 09/14/20 History Patient hx anesthesia problems: none Family hx anesthesia problems: none PMFSH Past Medical History Medical History Carpal tunnel syndrome of right wrist Chronic bronchitis Chronic neck and back pain Diverticulitis of intestine with perforation of peritonitis Essential (primary) hypertension Hepatic steatosis Visualized on CT abd/pelvis 07/27/20 Hx of diverticulitis of colon Lung nodule < 6cm on CT 5 mm and 3 mm nodules in right middle lobe on CT abd/pelvis from 07/27/20 Tobacco abuse Surgical History Surgical History History of ankle surgery left History of carpal tunnel surgery Right hand History of colon surgery 2008 and removed partial colon History of thumb surgery S/P cubital tunnel release Family History Family History Mother Diabetes mellitus Obstructive sleep apnea on CPAP Father Hypertension Family history of emphysema Social History Social History Social History: The patient lives with his who is a durable power civil attorney for healthcare. The patient is a full code. 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 He has 3 daughters. The patient still continues to smoke less than a pack a cigarettes a day for over 46 years. The patient is a former drinker. He does not use any marijuana illicit drugs. Smoking packs per day: 0.75 Smoking cigarettes per day: 15.0 Years smoked: 50 Smoking pack-years: 37.50 Smoking status: Current every day smoker Tobacco type: cigarettes Second hand tobacco smoke exposure: Yes Alcohol intake: former Substance use: never Substance use type: does not use Living arrangements: with family Gender identity (if verbalized by the patient): Male Spiritual care concerns: No Anes - Eval Final PreProcedure Day of Procedure 09/24/20 10:11 Patient weight: normal Heart: regular rate and rhythm Lungs: clear to auscultation Airway: Mallampati scale class II Neurological: alert and oriented Last oral intake: >/= 8 hours ASA classification: III Emergent: no Anesthetic plan: proceed Anesthesia type and monitoring: general GIVS and standard monitoring Informed Consent: The patient's anesthetic plan and its attendant risks and benefits were discussed with the patient/family/POA. Questions were solicited and answers provided to the satisfaction of the patient/family/POA.
[2020-09-24] MEDS: LACTATED RINGERS 1,000 ML 150 ML IV CONT (10:24)
[2020-09-24 10:26] VITALS: BP 115/81; PULSE 67; RESP 16; TEMP 36.6; O2SAT 98; BMI 27.6
--- NOTE | 2020-09-24 11:10 | PM.HPGS ---
History of Present Illness History of Present Illness Consent: Risks, benefits, and alternatives have been discussed and questions answered. Patient agrees to proceed with procedure. Chief complaint: diverticulitis, fecal impaction Narrative: Mitch Juarez Jr. is a 60 year old male with history in 2007 of sigmoidectomy with Shelly procedure and descending colostomy. He later that year had laparoscopic closure of his colostomy. 07/2020 with diverticulitis right colon treated medically, asymptomatic now, never had a colonoscopy. Review of Systems Constitutional: Constitutional: Denies headache(s) and Denies weakness Eyes: Eyes: Denies blurry vision ENT: Reports Normal hearing present, Denies headache(s) and Denies neck pain Cardiovascular: Cardiovascular: Denies chest pain and Denies dyspnea Respiratory: Respiratory: Denies dyspnea Gastrointestinal: Gastrointestinal: Reports no additional gastrointestinal complaints Genitourinary: Genitourinary: Denies dysuria Musculoskeletal: Musculoskeletal: Denies neck pain Integumentary/Breasts: Skin/Breast: Denies dry skin Neurologic: Reports Normal hearing present, Denies headache(s) and Denies weakness Psychiatric: Psychiatric: Denies anxiety Endocrine: Endocrine: Denies change in body appearance Hematologic/Lymphatic: Hematologic/Lymphatic: Denies easy bleeding Allergic/Immunologic: Allergic/Immunologic: Denies urticaria PMFSH Past Medical History Medical History Carpal tunnel syndrome of right wrist Chronic bronchitis Chronic neck and back pain Diverticulitis of intestine with perforation of peritonitis Essential (primary) hypertension Hepatic steatosis Visualized on CT abd/pelvis 07/27/20 Hx of diverticulitis of colon Lung nodule < 6cm on CT 5 mm and 3 mm nodules in right middle lobe on CT abd/pelvis from 07/27/20 Tobacco abuse Surgical History Surgical History History of ankle surgery left History of carpal tunnel surgery Right hand History of colon surgery 2008 and removed partial colon History of thumb surgery S/P cubital tunnel release Family History Family History Mother Diabetes mellitus Obstructive sleep apnea on CPAP Father Hypertension Family history of emphysema Social History Social History Social History: The patient lives with his who is a durable power deputy attorney general for healthcare. The patient is a full code. 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 He has 3 daughters. The patient still continues to smoke less than a pack a cigarettes a day for over 46 years. The patient is a former drinker. He does not use any marijuana illicit drugs. Smoking packs per day: 0.75 Smoking cigarettes per day: 15.0 Years smoked: 50 Smoking pack-years: 37.50 Smoking status: Current every day smoker Tobacco type: cigarettes Second hand tobacco smoke exposure: Yes Alcohol intake: former Substance use: never Substance use type: does not use Living arrangements: with family Gender identity (if verbalized by the patient): Male Spiritual care concerns: No Meds Home Medications and Allergies Home Medications Medication Instructions Recorded Confirmed Type acetaminophen 500 mg tablet 500 mg PO Q4-6H PRN tablet 06/23/19 09/24/20 History famotidine 20 mg tablet 20 mg PO QPM 02/09/20 09/24/20 History fluticasone propionate 50 1 spray NASAL DAILY 02/09/20 09/24/20 History mcg/actuation nasal spray,suspension amlodipine 10 mg PO DAILY 09/14/20 09/24/20 History hydrochlorothiazide 25 mg PO DAILY 09/14/20 09/24/20 History metoprolol succinate 25 mg PO DAILY 09/14/20 09/24/20 History Allergies Allergy/AdvReac Type Severity Reaction Status Date / Time tetanus toxoid, adsorbed Tyrell
[2020-09-24 11:35] VITALS: BP 107/70; PULSE 66; RESP 17; O2SAT 98
[2020-09-24 11:45] VITALS: BP 101/72; PULSE 65; RESP 20; O2SAT 100
[2020-09-24 11:55] VITALS: BP 106/74; PULSE 64; RESP 16; O2SAT 98
== END 2020-09-24 12:09 | disposition home or self-care (01) ==
PROVIDERS: PCP Family Medicine; Visit Provider Internal Medicine Gastroenterology
PROC: 0DJD8ZZ Inspection of Lower Intestinal Tract, Via Natural or Artificial Opening Endoscopic (ICD-10-PCS; CPT 45378; principal; 2020-09-24 11:15)
DX: K57.30 Diverticulosis of large intestine without perforation or abscess without bleeding (principal); D12.2 Benign neoplasm of ascending colon; K63.89 Other specified diseases of intestine; K64.8 Other hemorrhoids; Z98.0 Intestinal bypass and anastomosis status; Z90.49 Acquired absence of other specified parts of digestive tract; Z87.19 Personal history of other diseases of the digestive system; I10 Essential (primary) hypertension; K76.0 Fatty (change of) liver, not elsewhere classified; R91.1 Solitary pulmonary nodule; F17.210 Nicotine dependence, cigarettes, uncomplicated
CPT/HCPCS: 45385; 88305; C9803; J7120; U0003; U0005

== ENCOUNTER → 2020-12-24 11:12 | Outpatient (CLI) | payer OTHER, SELFPAY ==
--- NOTE | ~2020-12-24 | CT_ITS ---
EXAMINATION: CT diagnostic chest wo con DATE: 12/24/2020 11:27 INDICATION: Pulmonary nodules TECHNIQUE: Computed tomography (CT) of the chest was performed without intravenous contrast. The dose -length product (DLP) was 117.17 mGy-cm. Automated exposure control and iterative reconstruction tech nique were employed. COMPARISON: 07/15/2019 FINDINGS: Stable lung nodules measure up to 3 mm. There is a stable subsolid nodule of the left upper lobe measuring 5 mm. No new pulmonary nodules are identified. There is no pleural effusion or pneumo thorax. The lungs are free of acute opacities. No pathologically enlarged thoracic lymph nodes are id entified. The heart size is normal. There is mild thoracic spondylosis. There is severe lower cervica l spondylosis. IMPRESSION: 1. Stable pulmonary nodules, considered benign. Patient may be eligible for annual low-dose lung [facility] [place] er screening CT. Reviewed, dictated and finalized at location B. IMPRESSION: 1. Stable pulmonary nodules, considered benign. Patient may be eligible for [facility] low-dose lung cancer screening CT.
== END ==
PROVIDERS: Visit Provider Internal Medicine Critical Care Medicine
DX: R91.1 Solitary pulmonary nodule (principal)
CPT/HCPCS: 71250

== ENCOUNTER → 2021-12-30 08:39 | Outpatient (CLI) | payer OTHER, SELFPAY ==
--- NOTE | ~2021-12-30 | CT_ITS ---
EXAMINATION: CT lung screening DATE: 12/30/2021 08:51 INDICATION: Personal history of nicotine dependence, current smoker with 50 pack year history TECHNIQUE: Computed tomography (CT) of the chest was performed without intravenous contrast. The dose -length product (DLP) was 132.15 mGy-cm. 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 COMPARISON: 07/15/2019, 12/24/2020 FINDINGS: Again seen are stable lung nodules measuring up to 3 mm. A subsolid nodule of the left uppe r lobe measuring 5 mm is also stable. No new pulmonary nodules are identified. The lungs are free of acute opacities. There is atelectasis in the lower lobes. No pleural effusion or pneumothorax. No pat hologically enlarged thoracic lymph nodes are identified. The heart size is normal. There is mild tho racic spondylosis. Severe lower cervical spondylosis is noted. IMPRESSION: 1. Lung-RADS category 2: Benign appearance or behavior. Continue annual screening with noncontrast lo w-dose chest CT in 12 months. Reviewed, dictated and finalized at location A. IMPRESSION: 1. Lung-RADS category 2: Benign appearance or behavior. Continue annual screeni ng with noncontrast low-dose chest CT in 12 months.
== END ==
PROVIDERS: PCP Family Medicine; Visit Provider Internal Medicine Critical Care Medicine
DX: Z12.2 Encounter for screening for malignant neoplasm of respiratory organs (principal); Z87.891 Personal history of nicotine dependence
CPT/HCPCS: 71271

== ENCOUNTER → 2022-12-03 11:03 | Outpatient (CLI) | payer MEDICARE, SELFPAY ==
--- NOTE | ~2022-12-03 | XR_ITS ---
AP view of the pelvis and AP and lateral views of the bilateral hips Clinical history: Pain Findings: No acute fracture or dislocation is seen. Osseous alignment is anatomic. Bilateral hip and SI joint spaces are preserved. Soft tissues are unremarkable. Impression: No significant abnormality is seen. Reviewed, dictated and finalized at location . Impression: No significant abnormality is seen.
== END ==
PROVIDERS: PCP Family Medicine; Visit Provider Family Medicine
DX: G89.29 Other chronic pain (principal); M25.551 Pain in right hip; M25.552 Pain in left hip; M54.41 Lumbago with sciatica, right side; M54.42 Lumbago with sciatica, left side
CPT/HCPCS: 73521

== ENCOUNTER → 2022-12-09 10:49 | Outpatient (CLI) | payer MEDICARE, SELFPAY ==
--- NOTE | ~2022-12-09 | MR_ITS ---
MRI of the lumbar spine Clinical History: Back pain Technique: Axial T2-weighted images, and sagittal T1-weighted, T2-weighted, and and T2 fat-sat images were acquired. Findings: There is no fracture or cervical fixation of the lumbar spine. Vertebral bodies maintain no rmal height and alignment. No suspicious bone marrow signal abnormality seen. At L1-L2, L2-L3, L3-L4, there is no disc bulge or herniation. There are moderate facet joint degenera tive changes at these levels. No spinal canal stenosis or neural foraminal narrowing at these levels. At L4-L5, there is mild degenerative disc narrowing with minimal disc bulge and moderate facet arthro vikki. No central canal stenosis or neural foraminal narrowing. At L5-S1, there is disc bulge and advanced facet arthropathy. No central canal stenosis. There is mil d to moderate left neural foraminal narrowing, and moderate to advanced right neural foraminal narrow ing. Paravertebral soft tissues are unremarkable. Impression: Moderate degenerative spondylosis at L5-S1, as detailed above. Reviewed, dictated and finalized at location . Impression: Moderate degenerative spondylosis at L5-S1, as detailed above.
== END ==
PROVIDERS: PCP Family Medicine; Visit Provider Family Medicine
DX: M54.42 Lumbago with sciatica, left side (principal); M47.897 Other spondylosis, lumbosacral region
CPT/HCPCS: 72148

== ENCOUNTER → 2023-01-01 08:10 | Outpatient (CLI) | payer MEDICARE, SELFPAY ==
--- NOTE | ~2023-01-01 | MR_ITS ---
EXAMINATION: MR cervical spine wo con DATE: 01/01/2023 09:30 INDICATION: Radiculopathy, cervical region. TECHNIQUE: Magnetic resonance imaging (MRI) of the cervical spine was performed without intravenous c ontrast. COMPARISON: Cervical spine MRI 10/31/2003 FINDINGS: There is 7 degrees dextrocurvature of cervical spine. There is a chronic compression fractu re of T3 with less than 1/5 loss of height. There is mildly decreased disc height at C3-C4 and C4-C5, moderately decreased disc height at C5-C6, and severely decreased disc height at C6-C7. The spinal c ord signal intensity is normal. There is a 7 mm subcutaneous mass in the posterior upper thorax to th e right of midline, likely a sebaceous cyst. The following disc levels are specifically discussed: C2-C3: There is a central protrusion. There is no uncovertebral joint osteoarthritis. There is severe bilateral facet joint osteoarthritis. There is mild bilateral neural foraminal stenosis. There is no central canal stenosis. C3-C4: The disc is bulging. There is moderate right and severe left uncovertebral joint osteoarthriti s. There is severe bilateral facet joint osteoarthritis. There is mild right and moderate left neural foraminal stenosis. There is mild central canal stenosis. C4-C5: The disc is bulging. There is mild right and moderate left uncovertebral joint osteoarthritis. There is moderate right and severe left facet joint osteoarthritis. There is mild right and moderate left neural foraminal stenosis. There is mild central canal stenosis. C5-C6: The disc does not extend beyond the endplate margin. There is moderate and severe left uncover tebral joint osteoarthritis. There is mild right and severe left facet joint osteoarthritis. There is mild bilateral neural foraminal stenosis. There is no central canal stenosis. C6-C7: The disc is bulging. There is severe bilateral uncovertebral joint osteoarthritis. There is se keyla right and moderate left facet joint osteoarthritis. There is moderate right and mild left neural foraminal stenosis. There is mild central canal stenosis. C7-T1: There is a central protrusion. There is no uncovertebral joint osteoarthritis. There is severe right and moderate left facet joint osteoarthritis. There is mild bilateral neural foraminal stenosi s. There is no central canal stenosis. IMPRESSION: 1. Severe cervical spondylosis. Reviewed, dictated and finalized at location A.
--- NOTE | ~2023-01-01 | CT_ITS ---
EXAMINATION: CT lung screening DATE: 01/01/2023 09:35 INDICATION: Z87.891 - Personal history of nicotine dependence TECHNIQUE: Computed tomography (CT) of the chest was performed without intravenous contrast. Addition al 3D reconstructions utilizing coronal maximum intensity projection (MIP) were performed. Automated exposure control and iterative reconstruction technique were employed. The dose-length product was 12 1.21 mGy-cm. COMPARISON: 12/30/2021 FINDINGS: Mild emphysema with mild biapical pleural-parenchymal scarring. Unchanged 2 mm right upper lobe nodul e on series 4, image 59. Discoid atelectasis at the posterior right lower lobe. No change in 3 small calcified right middle lobe, to which appear calcified and the third largest measuring 5 x 3 mm. Ther e are a few tiny nodules along the left major fissure the largest a 4 x 1 mm flat lenticular likely i ntrafissural lymph node. No pneumonia, pulmonary edema or pleural effusion. Heart size is normal. No pericardial effusion. Thoracic aorta is normal in caliber. No pathologically enlarged thoracic lympha denopathy. There are splenic calcification consistent with old granulomatous disease. Severe lower ce rvical and mild thoracic spondylosis. IMPRESSION: 1. Lung-RADS category 2: Benign appearance or behavior. Continue annual screening with noncontrast lo w-dose chest CT in 12 months. Reviewed, dictated and finalized at location A. IMPRESSION: 1. Lung-RADS category 2: Benign appearance or behavior. Continue annual screeni ng with noncontrast low-dose chest CT in 12 months.
== END ==
PROVIDERS: PCP Family Medicine; Visit Provider Physician Assistant
DX: Z87.891 Personal history of nicotine dependence (principal); M47.22 Other spondylosis with radiculopathy, cervical region
CPT/HCPCS: 71271; 72141

== ENCOUNTER → 2023-01-01 08:14 | Outpatient (CLI) | payer MEDICARE, SELFPAY ==
--- NOTE | ~2023-01-01 | XR_ITS ---
EXAMINATION: XR cervical spine min 6V DATE: 01/01/2023 09:30 INDICATION: Neck pain. TECHNIQUE: 7 views of cervical spine including flexion and extension views were obtained. COMPARISON: None. FINDINGS: There is 7 degrees dextrocurvature of cervical spine. There is no abnormal motion with flex ion or extension. Vertebral body heights are normal. There is mildly decreased disc height at C3-C4 a nd C4-C5, moderately decreased disc height at C5-C6, and severely decreased disc height at C6-C7. The re is multilevel uncovertebral joint osteoarthritis, severe at C6-C7. There is multilevel facet joint osteoarthritis, severe on the left at C4-C5 and C5-C6 and bilaterally at C6-C7. There is mild centra l canal stenosis at C4-C5, C5-C6, and C6-C7. No prevertebral soft tissue swelling. IMPRESSION: 1. Severe cervical spondylosis. Reviewed, dictated and finalized at location A.
--- NOTE | ~2023-01-01 | XR_ITS ---
EXAMINATION: XR lumbar spine 6V w bending DATE: 01/01/2023 09:30 INDICATION: Low back pain. TECHNIQUE: 7 views of lumbar spine including flexion and extension views were obtained. COMPARISON: CT abdomen and pelvis 07/27/2020 FINDINGS: There is 3 mm anterolisthesis of L5 on S1. There is 4 degrees dextrocurvature of lumbar spi ne. There is no abnormal motion with flexion or extension. Vertebral body heights are normal. There i s mildly decreased disc height at L4-L5 and L5-S1. There is multilevel facet joint osteoarthritis, se keyla bilaterally at L5-S1. IMPRESSION: 1. Mild lumbar spondylosis. Reviewed, dictated and finalized at location A. IMPRESSION: 1. Mild lumbar spondylosis.
== END ==
PROVIDERS: PCP Family Medicine; Visit Provider Anesthesiology Pain Medicine
DX: M47.27 Other spondylosis with radiculopathy, lumbosacral region (principal); M47.896 Other spondylosis, lumbar region; M47.892 Other spondylosis, cervical region
CPT/HCPCS: 72052; 72114

== ENCOUNTER 2023-01-13 08:16 | Day surgery (SDC) | payer MEDICARE, SELFPAY ==
--- NOTE | ~2023-01-13 | XR_ITS ---
EXAMINATION: XR fluoroscopy no charge DATE: 01/13/2023 10:07 CDT INDICATION: BILATERAL L-5-S1 TRANSFORAMINAL EPIDURAL STEROID INJ WITH . TECHNIQUE: 3 fluoroscopic images and 3 cine clips of 19, 17, and 12 images of the lumbar spine were o btained during bilateral L5-S1 transforaminal epidural steroid injection performed by the surgeon. I was not present in the operating room. Fluoroscopy exposure time was 14.1 seconds. Air Kerma 9.37 mGy . COMPARISON: None FINDINGS: Bilateral needles approach the lateral aspect of the L5 vertebral body, followed by contrast injectio n. IMPRESSION: Fluoroscopic documentation of bilateral L5-S1 transforaminal epidural steroid injection. Please refer to the operative note for complete procedural details . Reviewed, dictated and finalized at location K. IMPRESSION: Fluoroscopic documentation of bilateral L5-S1 transforaminal epidural steroid i njection. Please refer to the operative note for complete procedural details .
--- NOTE | 2023-01-13 08:09 | WPDHPUPDATE1 ---
History and Physical Update Update Date/Time: 01/13/23 08:09 History and Physical has been reviewed, including an updated exam of the patient. There are NO changes in the patient's condition. Risks, benefits, and alternatives have been discussed and questions answered. Patient agrees to proceed with procedure.
[2023-01-13 08:45] VITALS: BP 117/84; PULSE 78; RESP 16; TEMP 36.9; O2SAT 98
[2023-01-13 10:07] VITALS: BP 131/77; PULSE 63; O2SAT 98
[2023-01-13] MEDS: LIDOCAINE HCL 1% PF INJ 5 ML VIAL 3 ML XX (10:10)
[2023-01-13] MEDS: LIDOCAINE HCL 2% PF INJ 5 ML VIAL 3 ML INFILTRATE (10:17)
--- NOTE | 2023-01-13 10:19 | W.PM.PROC2 ---
Procedure Note - Detailed Date of Procedure 01/13/23 Pre-op Diagnosis Lumbosacral Radiculopathy Post-op Diagnosis Same Procedure Performed Bilateral L5-S1 transforaminal epidural steroid injection with fluoroscopy. Surgeon Jean Paul Machuca MD Anesthesia Local Indications Chronic pain from lumbosacral radiculopathy recalcitrant to conservative measures. Description of Procedure INFORMED CONSENT: Risks, benefits and alternatives to the procedure were discussed in detail with the patient who expressed explicit understanding and consent to proceed. Patient was informed verbally and in written form regarding the risks associated with the procedure including the low risk of serious infection, bleeding/bruising, allergic reaction, nerve or organ injury, paralysis, procedural site pain or discomfort, worsening pain and/or mobility, failure to treat and/or disfigurement. The patient expressed explicit understanding and consent to proceed. All materials required for the procedure were available prior to procedure start. Site and side was marked prior to procedure and confirmed in the presence of the patient. PROCEDURE IN DETAIL: The patient was brought to the procedural suite and placed in the prone position. Patient was made comfortable with use of pillows under the head/chest, hips and ankles. Skin overlying the injection site was prepared broadly with ChloraPrep applicator and draped in a sterile manner. Aseptic technique was employed throughout. The endplates of the vertebral body at the site of interest were aligned in the AP view. Ipsilateral oblique angulation was utilized to better visualize the neuroforamen of interest. Local anesthesia was established by infiltration with approximately 5 mL of 2% lidocaine via a 1-1/2 inch 27-gauge needle. A 22-gauge 5.0 inch Meagan (pencil point) spinal needle was advanced until the needle approached the 6 o'clock position on the pedicle just superior to the exiting nerve root. on the right at L5-S1. Lateral view was utilized to confirm appropriate position of the needle tip within the superior and posterior portion of the respective foramen. In an AP view, 0.5 mL of Omnipaque 300 contrast medium was injected after negative aspiration for CSF, blood or other bodily fluid, showing appropriate neurogram without evidence of intravascular or intrathecal spread of contrast. Digital subtraction imaging was used with an additional 0.5ml of the same contrast medium to confirm absence of intravascular contrast spread. A 1mL solution containing 5 mg of dexamethasone was injected after negative repeat aspiration. Appropriate spread of the injectate was confirmed with washout of previously injected contrast. No parasthesias were elicited. Needle was removed completely intact without difficulty. The same exact procedure was repeated for all remaining levels on the contralateral side, left L5-S1 neuroforamen, modified as necessary to accommodate for the new target location with identical findings and results and no evidence of complication. Images were saved and documented in the patient chart. Patient's skin was cleaned and sterile bandage applied. The patient tolerated the procedure well. The patient was transported to the recovery area in stable condition where they were observed for an appropriate amount of time prior to discharge, without evidence of complication. The patient was instructed to avoid excessive activity for the next 48 hours, including climbing and frequent use of stairs. Showers only for 48 hours. They were instructed not to drive or operate heavy machinery for 24 hours. They are to monitor for severe headaches, fevers, chills, night sweats, erythema/swelling at the site or any other signs of infection, bleeding/bruising, bowel or bladder changes as well as new pain, weakness or numbness in the upper or lower extremity. Should they notice these changes, they are instructed to call our office immediately or report directly to th
[2023-01-13 10:23] VITALS: BP 133/85; PULSE 81; RESP 14; O2SAT 95
== END 2023-01-13 10:41 | disposition home or self-care (01) ==
PROVIDERS: PCP Family Medicine; Visit Provider Anesthesiology Pain Medicine
PROC: (CPT 64483; principal; 2023-01-13 09:30)
DX: M54.17 Radiculopathy, lumbosacral region (principal)
CPT/HCPCS: 64483; 99199

== ENCOUNTER 2023-02-10 05:56 | Day surgery (SDC) | payer MEDICARE, SELFPAY ==
--- NOTE | ~2023-02-10 | XR_ITS ---
XR fluoroscopy no charge 02/10/2023 11:47 TECHNIQUE: Fluoroscopy used during right C2-3, C3-4 medial branch block performed by [Jean Paul Machuca MD] on 02/10/2023. 14 seconds of fluoroscopy time with 51 images captured. FINDINGS: Correlate with procedure note. IMPRESSION: Fluoroscopy used during right C2-3, C3-4 medial branch block. Reviewed, dictated and finalized at location L.
--- NOTE | 2023-02-10 07:24 | WPDHPUPDATE1 ---
History and Physical Update Update Date/Time: 02/10/23 07:24 History and Physical has been reviewed, including an updated exam of the patient. There are NO changes in the patient's condition. Risks, benefits, and alternatives have been discussed and questions answered. Patient agrees to proceed with procedure.
[2023-02-10 07:58] VITALS: BP 123/89; PULSE 63; RESP 16; TEMP 36.8; O2SAT 98
[2023-02-10 08:52] VITALS: BP 192/102; PULSE 57; RESP 18; O2SAT 97
[2023-02-10 09:02] VITALS: BP 111/76; PULSE 56; RESP 18; O2SAT 97
--- NOTE | 2023-02-10 09:03 | W.PM.PROC2 ---
Procedure Note - Detailed Date of Procedure 02/10/23 Pre-op Diagnosis Cervical spondylosis, chronic cervicalgia Post-op Diagnosis Same Procedure Performed right C2-3, C3, C4 Diagnostic medial branch blocks addressing the right C2-3 and C3-4 facet joints under fluoroscopic guidance with contrast control. Surgeon Jean Paul Machuca MD Anesthesia Local Indications chronic, recalcitrant right sided occipito-cervical neck pain secondary to cervical spondylosis and cervical facet syndrome Description of Procedure INFORMED CONSENT: Risks, benefits and alternatives to the procedure were discussed in detail with the patient who expressed explicit understanding and consent to proceed. Patient was informed verbally and in written form regarding the risks associated with the procedure including the low risk of serious infection, bleeding/bruising, allergic reaction, nerve or organ injury, paralysis, procedural site pain or discomfort, worsening pain and/or mobility, failure to treat and/or disfigurement. The patient expressed explicit understanding and consent to proceed. All materials required for the procedure were available prior to procedure start. Site and side was marked prior to procedure and confirmed in the presence of the patient. PROCEDURE IN DETAIL: The patient was brought to the procedural suite and placed in the left lateral decubitus position with head stabilized. Patient was made comfortable with use of pillows under the head/chest and between the knees and ankles. Skin overlying the injection site on the affected side(s) was prepared broadly with ChloraPrep applicator and draped in a sterile manner. Aseptic technique was used throughout. The endplates of the vertebral bodies at the site(s) of interest were aligned in the Lateral view. Image was optimized for visualization of the pars interarticularis at each target site. Local anesthesia was established by infiltration with approximately 5 mL of 1% lidocaine via a 1-1/2 inch 27- gauge needle. A 25-gauge 3.5 inch Quincke spinal needle was advanced until the needle tip contacted the periosteum of the pars interarticularis at the target site, right C2-3 peripheral branch. AP view was utilized to confirm the appropriate placement of the needle tip just lateral to the periosteum at the center point of the pars interarticularis. In the Lateral view, 0.25 mL of Omnipaque 300 contrast medium was injected after negative aspiration for CSF, blood or other bodily fluid, showing appropriate extra-articular spread of contrast without evidence of intravascular, foraminal or intrathecal placement. A 0.5 mL solution of 0.5% PF bupivacaine was injected after negative repeat aspiration. Appropriate spread of the injectate was confirmed with washout of previously injected contrast. No parasthesias were elicited. Needle was removed completely intact without difficulty. The same procedure was repeated for all additional intended levels/structures treated on the ipsilateral side, right C3, C4 medial branches with identical methodology modified to compensate for different location, with similar results and no evidence of complication. Patient tolerated this well. Images were saved and documented in the patient chart. Patient's skin was cleaned and sterile bandage applied. The patient tolerated the procedure well. The patient was transported to the recovery area in stable condition where they were observed for an appropriate amount of time prior to discharge, without evidence of complication. Patient was instructed on the appropriate completion of a pain diary over the next 12-24 hours. The patient was instructed to avoid excessive activity for the next 48 hours, including climbing and frequent use of stairs. Showers only for 48 hours. They were instructed not to drive or operate heavy machinery for 24 hours. They are to monitor for severe headaches, fevers, chills, night sweats, erythema/swelling at the site or any other signs of
[2023-02-10 09:08] VITALS: BP 117/89; PULSE 56; RESP 16; O2SAT 97
[2023-02-10] MEDS: LIDOCAINE HCL 1% PF INJ 5 ML VIAL 4 ML AFFCTD EYE (09:08)
[2023-02-10] MEDS: BUPivacaine HCL 0.5% 10 ML AMP 2 ML INFILTRATE (09:09)
== END 2023-02-10 09:20 | disposition home or self-care (01) ==
PROVIDERS: PCP Family Medicine; Visit Provider Anesthesiology Pain Medicine
PROC: (CPT 64490; principal; 2023-02-10 08:30)
DX: M47.812 Spondylosis without myelopathy or radiculopathy, cervical region (principal); M54.2 Cervicalgia
CPT/HCPCS: 64490; 99199

== ENCOUNTER 2023-03-10 08:51 | Day surgery (SDC) | payer MEDICARE, SELFPAY ==
[2023-03-09 12:11] VITALS: BMI 29.6
--- NOTE | ~2023-03-10 | XR_ITS ---
XR fluoroscopy no charge Procedure: Right C2-3, C3-4 medial branch block TECHNIQUE: Fluoroscopy used during Right C2-3, C3-4 medial branch block performed by [Jean Paul Machuca MD] on 03/10/2023. 42 seconds of fluoroscopy time with 5 fluoroscopic images images captured. FINDINGS: Correlate with procedure note. IMPRESSION: Fluoroscopy used during Right C2-3, C3-4 medial branch block. Reviewed, dictated and finalized at location B.
--- NOTE | 2023-03-10 05:25 | WPDHPUPDATE1 ---
History and Physical Update Update Date/Time: 03/10/23 05:25 History and Physical has been reviewed, including an updated exam of the patient. There are NO changes in the patient's condition. Risks, benefits, and alternatives have been discussed and questions answered. Patient agrees to proceed with procedure.
[2023-03-10 11:05] VITALS: BP 123/85; PULSE 69; RESP 18; TEMP 36.7; O2SAT 99; BMI 29.8
[2023-03-10 11:30] VITALS: BP 111/77; PULSE 69; RESP 18; O2SAT 97
[2023-03-10 11:40] VITALS: BP 130/80; PULSE 84; RESP 16; O2SAT 97
[2023-03-10] MEDS: LIDOCAINE HCL 1% PF INJ 5 ML VIAL XX (11:45)
--- NOTE | 2023-03-10 11:50 | W.PM.PROC2 ---
Procedure Note - Detailed Date of Procedure 03/10/23 Pre-op Diagnosis cervical spondylosis, cervicalgia Post-op Diagnosis Same Procedure Performed right C2-3, C3, C4 medial branch block (#2) under fluoroscopic guidance with contrast control Surgeon Jean Paul Machuca MD Anesthesia Local Indications chronic, recalcitrant, activity limiting axial cervical occipital pain unresponsive to conservative measures Description of Procedure INFORMED CONSENT: Risks, benefits and alternatives to the procedure were discussed in detail with the patient who expressed explicit understanding and consent to proceed. Patient was informed verbally and in written form regarding the risks associated with the procedure including the low risk of serious infection, bleeding/bruising, allergic reaction, nerve or organ injury, paralysis, procedural site pain or discomfort, worsening pain and/or mobility, failure to treat and/or disfigurement. The patient expressed explicit understanding and consent to proceed. All materials required for the procedure were available prior to procedure start. Site and side was marked prior to procedure and confirmed in the presence of the patient. PROCEDURE IN DETAIL: The patient was brought to the procedural suite and placed in the left lateral decubitus position with head stabilized. Patient was made comfortable with use of pillows under the head/chest and between the knees and ankles. Skin overlying the injection site on the affected side(s) was prepared broadly with ChloraPrep applicator and draped in a sterile manner. Aseptic technique was used throughout. The endplates of the vertebral bodies at the site(s) of interest were aligned in the Lateral view. Image was optimized for visualization of the pars interarticularis at each target site. Local anesthesia was established by infiltration with approximately 5 mL of 1% lidocaine via a 1-1/2 inch 27- gauge needle. A 25-gauge 3.5 inch Quincke spinal needle was advanced until the needle tip contacted the periosteum of the pars interarticularis at the target site, right C2-3 peripheral branch. AP view was utilized to confirm the appropriate placement of the needle tip just lateral to the periosteum at the center point of the pars interarticularis. In the Lateral view, 0.25 mL of Omnipaque 300 contrast medium was injected after negative aspiration for CSF, blood or other bodily fluid, showing appropriate extra-articular spread of contrast without evidence of intravascular, foraminal or intrathecal placement. A 0.5 mL solution of 2.0% PF lidocaine was injected after negative repeat aspiration. Appropriate spread of the injectate was confirmed with washout of previously injected contrast. No parasthesias were elicited. Needle was removed completely intact without difficulty. The same procedure was repeated for all additional intended levels/structures treated on the ipsilateral side, right C3, C4 medial branches, with identical methodology modified to compensate for different location, with similar results and no evidence of complication. Patient tolerated this well. Images were saved and documented in the patient chart. Patient's skin was cleaned and sterile bandage applied. The patient tolerated the procedure well. The patient was transported to the recovery area in stable condition where they were observed for an appropriate amount of time prior to discharge, without evidence of complication. Patient was instructed on the appropriate completion of a pain diary over the next 12-24 hours. The patient was instructed to avoid excessive activity for the next 48 hours, including climbing and frequent use of stairs. Showers only for 48 hours. They were instructed not to drive or operate heavy machinery for 24 hours. They are to monitor for severe headaches, fevers, chills, night sweats, erythema/swelling at the site or any other signs of infection, bleeding/bruising, bowel or bladder changes as well as new p
[2023-03-10 11:55] VITALS: BP 119/85; PULSE 67; RESP 18; O2SAT 100
[2023-03-10] MEDS: LIDOCAINE HCL 2% PF INJ 5 ML VIAL 2 ML INFILTRATE (11:59)
== END 2023-03-10 12:05 | disposition home or self-care (01) ==
LOC: ASC 10:37
PROVIDERS: PCP Family Medicine; Visit Provider Anesthesiology Pain Medicine
PROC: (CPT 64490; principal; 2023-03-10 11:30)
DX: M47.812 Spondylosis without myelopathy or radiculopathy, cervical region (principal); M54.2 Cervicalgia
CPT/HCPCS: 64490; 64491; 99199

== ENCOUNTER 2023-04-14 05:53 | Day surgery (SDC) | payer MEDICARE, SELFPAY ==
[2023-04-07 13:06] VITALS: BMI 28.5
--- NOTE | ~2023-04-14 | XR_ITS ---
XR fluoroscopy no charge Indication: Right C2-3, C3-4 medial branch thermal radiofrequency ablation procedure. TECHNIQUE: Fluoroscopy used during Right C2-3, C3-4 medial branch thermal radiofrequency ablation pr any performed by [Jean Paul Machuca MD] on 04/14/2023. 124 fluoroscopic images. FINDINGS: Correlate with procedure note. IMPRESSION: Fluoroscopy used during Right C2-3, C3-4 medial branch thermal radiofrequency ablation pr ocedure.. Reviewed, dictated and finalized at location L. DISTRIBUTION SCHEME EXAMINER IMPRESSION: Fluoroscopy used during Right C2-3, C3-4 medial branch thermal radi ofrequency ablation procedure..
[2023-04-14 06:25] VITALS: BP 117/97; PULSE 65; RESP 20; TEMP 37.2; O2SAT 100
--- NOTE | 2023-04-14 06:30 | WPDHPUPDATE1 ---
History and Physical Update Update Date/Time: 04/14/23 06:30 History and Physical has been reviewed, including an updated exam of the patient. There are NO changes in the patient's condition. Risks, benefits, and alternatives have been discussed and questions answered. Patient agrees to proceed with procedure.
[2023-04-14] MEDS: LACTATED RINGERS 1,000 ML 30 ML IV CONT (06:45)
--- NOTE | 2023-04-14 07:10 | WPDANESEPPF ---
Anes - Initial Pre Proc Eval Procedure: Operation Date: 04/14/23 07:30 Proposed Procedures p Right C2-3, C3, C4 Medial Branch Thermal Radiofrequency Ablation - Jean Paul Machuca MD Date/Time: 04/14/23 07:10 Surgeon: Jean Paul Machuca MD Pre Op Diagnosis: Cervical Radiculopathy Patient Data Age: 63 Gender: M Height: 1.71 m Weight: 87 kg Last Vital Signs Temp 37.2 C 04/14/23 06:25 Pulse 65 04/14/23 06:25 Resp 20 04/14/23 06:25 BP 117/97 H 04/14/23 06:25 Pulse Ox 100 04/14/23 06:25 O2 Del Method Room Air 04/14/23 06:25 Allergies Allergy/AdvReac Type Severity Reaction Status Date / Time tetanus toxoid, adsorbed Allergy Severe TOLD Verified 04/14/23 06:24 CHILD--???REACTION Tetanus Vaccines and Toxoid Allergy Severe Unknown Verified 04/14/23 06:24 Home Medications Medication Instructions Recorded Confirmed Type acetaminophen 500 mg tablet 500 mg PO Q4-6H PRN Pain 06/23/19 04/07/23 History (Tylenol Extra Strength) fluticasone propionate 50 1 spray intranasal DAILY 02/09/20 04/07/23 History mcg/actuation nasal spray,suspension (Flonase Allergy Relief) tadalafil 10 mg tablet (Cialis) 10 mg PO DAILY PRN sexual activity 12/03/22 04/07/23 Rx #30 tabs metoprolol succinate 25 mg 25 mg PO DAILY #90 tabs 01/22/23 04/14/23 Rx tablet,extended release 24 hr amlodipine 10 mg tablet 10 mg PO DAILY #90 tabs 01/23/23 04/14/23 Rx hydrochlorothiazide 25 mg tablet 25 mg PO DAILY #90 tabs 01/23/23 04/14/23 Rx albuterol sulfate 90 mcg/actuation 1 - 2 inh inhalation Q4-6H PRN 03/26/23 04/07/23 Rx aerosol inhaler shortness of breath or wheezing #8.5 grams Patient hx anesthesia problems: none Family hx anesthesia problems: none Results Review: All pre-operative results and documents have been reviewed as part of the pre-operative evaluation. [facility] Past Medical History Medical History Carpal tunnel syndrome of right wrist Chronic neck and back pain Diverticulitis of intestine with perforation 2007 Environmental allergies Essential (primary) hypertension GERD without esophagitis Hepatic steatosis Visualized on CT abd/pelvis 07/27/20 Hx of diverticulitis of colon Lung nodule < 6cm on CT 5 mm and 3 mm nodules in right middle lobe on CT abd/pelvis from 07/27/20 Tobacco abuse Surgical History Surgical History History of ankle surgery (~2007) left History of carpal tunnel surgery (~2001) Right hand History of colon surgery (~2008) 2009 and removed partial colon History of thumb surgery (~2000) S/P cubital tunnel release (~2001) Family History Family History Mother Diabetes mellitus Obstructive sleep apnea on CPAP Father Hypertension Family history of emphysema Social History Social History Social History: The patient lives with his who is a durable power ip attorney for healthcare. The patient is a full code. 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 He has 3 daughters. The patient still continues to smoke less than a pack a cigarettes a day for over 46 years. The patient is a former drinker. He does not use any marijuana illicit drugs. Smoking packs per day: 0.5 Smoking cigarettes per day: 10.0 Years smoked: 50 Smoking pack-years: 25.00 Smoking status: Current every day smoker Tobacco type: cigarettes Second hand tobacco smoke exposure: No Alcohol intake: never Alcohol use details: last drink was in 2016 Substance use: never Substance use type: does not use Lack of Transportation: No Lack of Food: Never True Current Housing: I Do Not Have Housing Concerned About Future Housing: No Difficulty Paying Gas/Electric Bills: No Difficulty Paying for Meds: No Currently Unemploye
[2023-04-14] MEDS: ceFAZolin SODIUM 2 GM/20 ML SW SYRINGE IV PUSH (07:37)
[2023-04-14] MEDS: LIDOCAINE HCL 1% PF INJ 5 ML VIAL INFILTRATE (07:55)
[2023-04-14] MEDS: LIDOCAINE HCL 2% PF INJ 5 ML VIAL INFILTRATE (07:56)
[2023-04-14 08:02] VITALS: BP 98/71; PULSE 62; RESP 16; O2SAT 99
--- NOTE | 2023-04-14 08:06 | W.PM.PROC2 ---
Procedure Note - Detailed Date of Procedure 04/14/23 Pre-op Diagnosis Cervical spondylosis, cervicalgia Post-op Diagnosis Same Procedure Performed right C2-3, C3, C4 medial branch thermal radiofrequency ablation denervating the right C2-3, C3-4 facet joints under fluoroscopic guidance. Surgeon Jean Paul Machuca MD Anesthesia MAC and Local Description of Procedure INFORMED CONSENT: Risks, benefits and alternatives to the procedure were discussed in detail with the patient who expressed explicit understanding and consent to proceed. Patient was informed verbally and in written form regarding the risks associated with the procedure including the low risk of serious infection, bleeding/bruising, allergic reaction, nerve or organ injury, paralysis, procedural site pain or discomfort, worsening pain and/or mobility, failure to treat and/or disfigurement. The patient expressed explicit understanding and consent to proceed. All materials required for the procedure were available prior to procedure start. Site and side was marked prior to procedure and confirmed in the presence of the patient. PROCEDURE IN DETAIL: The patient was brought to the procedural suite and placed in the prone position with head stabilized with a ProneView pillow. Patient was made comfortable with use of pillows under the head/chest, hips and ankles. Skin overlying the injection site on the affected side(s) was prepared broadly with ChloraPrep applicator and draped in a sterile manner. Aseptic technique was used throughout. The endplates of the vertebral bodies at the site(s) of interest were aligned in the AP view. Ipsilateral oblique angulation was utilized to optimize visualization of the pars interarticularis at each target site. Local anesthesia was established by infiltration with approximately 5 mL of 1% lidocaine via a 1-1/2 inch 27-gauge needle. An 18-gauge 100mm RF needle with curved 10mm active tip was advanced in the AP view until the needle tip contacted the periosteum of the pars interarticularis at the target site, right C2-3 parallel to the course of the targeted branch. Lateral view was utilized to adjust and confirm the appropriate placement of the needle tip just anterior to the center point of the interarticularis, bisecting the distance between adjacent joint spaces. The appropriately-sized RF cannula was inserted into the RF needle and motor stimulation performed with no subjective or objective evidence of recruited muscle activity with stimulation up to 3.0 volts at a frequency of 2Hz. 0.5 mL solution of 2.0% PF lidocaine was injected after negative aspiration. Grounding electrode in place and functioning. After a 90s pause, lesioning was performed to 90 degrees centigrade for 90s ensuring lack of symptoms in the extremity throughout. Needle was withdrawn approcimately 1-2 mm and rotated 180 degrees. Lesioning repeated in a similar manner. Patient tolerated this well. No parasthesias were elicited. Needle was removed completely intact without difficulty. The same procedure was repeated for all intended levels/ structures on the ipsilateral side, right C3, C4, with identical methodology, modified to compensate for new location, with similar results and no evidence of complication. Patient tolerated this well. Images were saved and documented in the patient chart. Patient's skin was cleaned and sterile bandage applied. The patient tolerated the procedure well. The patient was transported to the recovery area in stable condition where they were observed for an appropriate amount of time prior to discharge, without evidence of complication. The patient was instructed to avoid excessive activity for the next 48 hours, including overhead work, reaching and device/computer usage. Showers only for 48 hours. They were instructed not to drive or operate heavy machinery for 24 hours. They are to monitor for severe headaches, fevers, chills, night sweats, erythema/swelling at the site o
[2023-04-14 08:12] VITALS: BP 108/75; PULSE 61; RESP 15; O2SAT 100
[2023-04-14 08:22] VITALS: BP 112/83; PULSE 64; RESP 14; O2SAT 99
[2023-04-14 08:32] VITALS: BP 103/70; PULSE 61; RESP 15; O2SAT 98
--- NOTE | 2023-04-14 08:34 | WPDANESPN ---
Anes - Prog Note Post-Op Date/Time: 04/14/23 08:34 Cardiovascular status: normal Respiratory status: normal Airway patency: baseline Mental status: baseline Post-Op hydration status: normal Vital Signs: Last Vital Signs Temp 37.2 C 04/14/23 06:25 Pulse 64 04/14/23 08:22 Resp 14 04/14/23 08:22 BP 112/83 04/14/23 08:22 Pulse Ox 99 04/14/23 08:22 O2 Del Method Room Air 04/14/23 08:22 Pain Score (VAS): 0 I/O: Intake & Output 04/13/23 04/14/23 04/14/23 23:59 07:59 15:59 Intake Total 400 Balance 400 Patient Feedback: Patient satisfied with anesthetic care.
== END 2023-04-14 08:38 | disposition home or self-care (01) ==
PROVIDERS: PCP Family Medicine; Visit Provider Anesthesiology Pain Medicine
PROC: (CPT 64633; principal; 2023-04-14 07:30)
DX: M47.812 Spondylosis without myelopathy or radiculopathy, cervical region (principal); M54.2 Cervicalgia
CPT/HCPCS: 64633; 64634; 99199

== ENCOUNTER 2023-06-09 08:23 | Day surgery (SDC) | payer MEDICARE, SELFPAY ==
[2023-05-22 13:48] VITALS: BMI 29.3
--- NOTE | ~2023-06-09 | XR_ITS ---
EXAMINATION: XR fluoroscopy no charge DATE: 06/09/2023 11:12 INDICATION: Lumbosacral radiculopathy. Lumbar spinal stenosis. TECHNIQUE: 45 intraoperative fluoroscopic images of the lumbar spine were obtained. I was not present . Fluoroscopy exposure time was 17 seconds. COMPARISON: Lumbar spine radiographs 01/01/2023 FINDINGS: [place] and contrast overlie the bilateral L5-S1 neural foramina. IMPRESSION: 1. Bilateral L5-S1 transforaminal epidural injection. Reviewed, dictated and finalized at location E. FORMULA MIXER
[2023-06-09 08:44] VITALS: BP 117/87; PULSE 78; RESP 20; TEMP 36.2; O2SAT 98; BMI 30.2
--- NOTE | 2023-06-09 08:54 | PM.HPGS ---
History of Present Illness History of Present Illness Consent: Risks, benefits, and alternatives have been discussed and questions answered. Patient agrees to proceed with procedure. Chief complaint: lumbosacral radiculopathy, lumbar spinal stenosis Narrative: Mitch Juarez Jr. is a 63 year old male with chronic, recalcitrant and disabling bilateral lumbosacral radiculopathy secondary to degenerative spinal stenosis with failure to respond to aggressive conservative measures including PT, oral and topical analgesics, opioid and nonopioid analgesics, rest, time and activity/behavioral modification over the past 1-2 years who presents for bilateral L5-S1 transforaminal epidural steroid injection under fluoroscopic guidance and with contrast control. patient had a significant response of greater than 50% pain reduction and improvement in activity tolerance lasting for 3 months or greater with last injection. Review of Systems Review of Systems: Patient denies any new infectious, allergic, cardiopulmonary, neurologic or constitutional symptoms or changes in activity tolerance or exercise capacity including new or progressive SOB/FLOYD, peripheral edema, productive cough, dysuria, nausea/vomiting, diarrhea, weight change, fevers/chills/night sweats, new or progressive neurologic deficit, cognitive or mood changes since last seen, except as documented in the HPI. All systems reviewed & are unremarkable except as noted in HPI and below PMFSH Past Medical History Medical History Carpal tunnel syndrome of right wrist Chronic neck and back pain Diverticulitis of intestine with perforation 2007 Environmental allergies Essential (primary) hypertension GERD without esophagitis Hepatic steatosis Visualized on CT abd/pelvis 07/27/20 Hx of diverticulitis of colon Lung nodule < 6cm on CT 5 mm and 3 mm nodules in right middle lobe on CT abd/pelvis from 07/27/20 Tobacco abuse Surgical History Surgical History History of ankle surgery (~2007) left History of carpal tunnel surgery (~2001) Right hand History of colon surgery (~2008) 2008 and removed partial colon History of thumb surgery (~2000) S/P cubital tunnel release (~2001) Family History Family History Mother Diabetes mellitus Obstructive sleep apnea on CPAP Father Hypertension Family history of emphysema Social History Social History Social History: The patient lives with his who is a durable power family law attorney for healthcare. The patient is a full code. 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 He has 3 daughters. The patient still continues to smoke less than a pack a cigarettes a day for over 46 years. The patient is a former drinker. He does not use any marijuana illicit drugs. Smoking packs per day: 1 Smoking cigarettes per day: 20.0 Years smoked: 50 Smoking pack-years: 50.00 Smoking status: Current every day smoker Tobacco type: cigarettes Second hand tobacco smoke exposure: No Alcohol intake: never Alcohol use details: last drink was in 2016 Substance use: never Substance use type: does not use Lack of Transportation: No Lack of Food: Never True Current Housing: I Do Not Have Housing Concerned About Future Housing: No Difficulty Paying Gas/Electric Bills: No Difficulty Paying for Meds: No Currently Unemployed: No Education: High School Diploma/GED Difficulty w/ Childcare or Family Care: No Living arrangements: with family Occupation/Education: unemployed Additional occupation/education comments: Disability Gender identity (if verbalized by the patient): Male Sexual Orientation (if Verbalized by the Patient): Straight or Heterosexual Spiritual care concerns: No Agree to b
--- NOTE | 2023-06-09 08:57 | WPDHPUPDATE1 ---
History and Physical Update Update Date/Time: 06/09/23 08:57 History and Physical has been reviewed, including an updated exam of the patient. There are NO changes in the patient's condition. Risks, benefits, and alternatives have been discussed and questions answered. Patient agrees to proceed with procedure.
[2023-06-09 09:05] VITALS: BP 184/61; PULSE 67; RESP 13; O2SAT 97
[2023-06-09 09:15] VITALS: BP 120/79; PULSE 68; RESP 12; O2SAT 97
[2023-06-09 09:18] VITALS: BP 123/89; PULSE 67; RESP 12; O2SAT 96
[2023-06-09] MEDS: BETAMETHASONE SODIUM PHOSPHATE PF INJ 6 MG/ML VIAL INFILTRATE (09:19)
[2023-06-09] MEDS: LIDOCAINE HCL 2% PF INJ 5 ML VIAL 1 ML INFILTRATE (09:19)
[2023-06-09] MEDS: LIDOCAINE HCL 1% PF INJ 5 ML VIAL XX (09:20)
--- NOTE | 2023-06-09 09:20 | W.PM.PROC2 ---
Procedure Note - Detailed Date of Procedure 06/09/23 Pre-op Diagnosis lumbosacral radiculopathy, lumbar spinal stenosis Post-op Diagnosis Same Procedure Performed bilateral L5-S1 transforaminal epidural steroid injection under fluoroscopic guidance with contrast control. Surgeon Jean Paul Machuca MD Anesthesia Local Description of Procedure INFORMED CONSENT: Risks, benefits and alternatives to the procedure were discussed in detail with the patient who expressed explicit understanding and consent to proceed. Patient was informed verbally and in written form regarding the risks associated with the procedure including the low risk of serious infection, bleeding/bruising, allergic reaction, nerve or organ injury, paralysis, procedural site pain or discomfort, worsening pain and/or mobility, failure to treat and/or disfigurement. The patient expressed explicit understanding and consent to proceed. All materials required for the procedure were available prior to procedure start. Site and side was marked prior to procedure and confirmed in the presence of the patient. PROCEDURE IN DETAIL: The patient was brought to the procedural suite and placed in the prone position. Patient was made comfortable with use of pillows under the head/chest, hips and ankles. Skin overlying the injection site was prepared broadly with ChloraPrep applicator and draped in a sterile manner. Aseptic technique was employed throughout. The endplates of the vertebral body at the site of interest were aligned in the AP view. Ipsilateral oblique angulation was utilized to better visualize the neuroforamen of interest. Local anesthesia was established by infiltration with approximately 5 mL of 2% lidocaine via a 1-1/2 inch 27-gauge needle. A 22-gauge 3.5 inch Meagan (pencil point) spinal needle was advanced until the needle approached the 6 o'clock position on the pedicle just superior to the exiting nerve root. on the Right at L5-S1. Lateral view was utilized to confirm appropriate position of the needle tip within the superior and posterior portion of the respective foramen. In an AP view, 1 mL of Omnipaque 300 contrast medium was injected after negative aspiration for CSF, blood or other bodily fluid, showing appropriate neurogram without evidence of intravascular or intrathecal spread of contrast. Digital subtraction imaging was used with an additional 1ml of the same contrast medium to confirm absence of intravascular contrast spread. A 1mL solution containing 3 mg of betamethasone was injected after negative repeat aspiration. Appropriate spread of the injectate was confirmed with washout of previously injected contrast. No parasthesias were elicited. Needle was removed completely intact without difficulty. The same exact procedure was repeated for all remaining levels on the contralateral side, left L5-S1 neuroforamen, modified as necessary to accommodate for the new target location with identical findings and results and no evidence of complication. Images were saved and documented in the patient chart. Patient's skin was cleaned and sterile bandage applied. The patient tolerated the procedure well. The patient was transported to the recovery area in stable condition where they were observed for an appropriate amount of time prior to discharge, without evidence of complication. The patient was instructed to avoid excessive activity for the next 48 hours, including climbing and frequent use of stairs. Showers only for 48 hours. They were instructed not to drive or operate heavy machinery for 24 hours. They are to monitor for severe headaches, fevers, chills, night sweats, erythema/swelling at the site or any other signs of infection, bleeding/bruising, bowel or bladder changes as well as new pain, weakness or numbness in the upper or lower extremity. Should they notice these changes, they are instructed to call our office immediately or report directly to the nearest Emergency Department if no
[2023-06-09 09:24] VITALS: BP 116/89; PULSE 72; RESP 16; O2SAT 98
== END 2023-06-09 09:38 | disposition home or self-care (01) ==
PROVIDERS: PCP Family Medicine; Visit Provider Anesthesiology Pain Medicine
PROC: (CPT 64483; principal; 2023-06-09 11:00)
DX: M48.061 Spinal stenosis, lumbar region without neurogenic claudication (principal); M54.17 Radiculopathy, lumbosacral region
CPT/HCPCS: 64483; 99199

== ENCOUNTER 2024-01-25 15:16 | Outpatient (CLI) | payer MEDICARE, SELFPAY ==
--- NOTE | ~2024-01-25 | CT_ITS ---
EXAMINATION: CT lung screening DATE: 01/25/2024 15:38 INDICATION: Personal history of nicotine dependence TECHNIQUE: Computed tomography (CT) of the chest was performed without intravenous contrast. Addition al 3D reconstructions utilizing coronal maximum intensity projection (MIP) were performed. Automated exposure control and iterative reconstruction technique were employed. The dose-length product was 11 8.55 mGy-cm. COMPARISON: 01/01/2023 FINDINGS: Mild emphysema. No change in 3 small nodule right middle lobe measuring up to 5 mm. The smallest of t hese nodules appears likely calcified. There is an additional unchanged 3 mm pleural-based nodule in the lateral right lower lobe. Also unchanged are a few tiny intrafissural lymph nodes along the left major fissure measuring up to 3 x 1 mm. No new or enlarging pulmonary nodule is identified. No pneumo be, pulmonary edema or pleural effusion. Heart size is normal. No pericardial effusion. Thoracic aor ta is normal in caliber. No pathologically enlarged thoracic lymphadenopathy. Chronic calcified consi stent with old granulomatous disease. Severe lower cervical and mild thoracic spondylosis. IMPRESSION: 1. Lung-RADS category 2: Benign appearance or behavior. Continue annual screening with noncontrast lo w-dose chest CT in 12 months. Reviewed, dictated and finalized at location B. IMPRESSION: 1. Lung-RADS category 2: Benign appearance or behavior. Continue annual screeni ng with noncontrast low-dose chest CT in 12 months.
== END 2024-01-25 15:17 | disposition home or self-care (01) ==
LOC: GOSHIMG 15:17
PROVIDERS: PCP Family Medicine; Visit Provider Nurse Practitioner Family
DX: Z12.2 Encounter for screening for malignant neoplasm of respiratory organs (principal); Z87.891 Personal history of nicotine dependence
CPT/HCPCS: 71271

== ENCOUNTER 2024-02-23 10:40 | Outpatient (CLI) | payer MEDICARE, SELFPAY ==
--- NOTE | ~2024-02-23 | XR_ITS ---
EXAMINATION: XR elbow RT min 3V DATE: 02/23/2024 11:01 INDICATION: Right elbow pain. TECHNIQUE: 4 views of right elbow were obtained. COMPARISON: None. FINDINGS: Alignment is normal. No fracture. Joint spaces are normal. No elbow joint effusion. IMPRESSION: 1. Normal right elbow. Reviewed, dictated and finalized at location A. IMPRESSION: 1. Normal right elbow.
== END 2024-02-23 10:41 | disposition home or self-care (01) ==
PROVIDERS: PCP Family Medicine; Visit Provider Family Medicine
DX: M25.521 Pain in right elbow (principal)
CPT/HCPCS: 73080

== ENCOUNTER → 2024-03-07 11:48 | Outpatient (REF) | payer MEDICARE, SELFPAY | LOC: ANHLAB 11:48 | PROVIDERS: PCP Family Medicine; Visit Provider Plastic Surgery | DX: L72.0 Epidermal cyst (principal) | CPT/HCPCS: 88305 ==

== ENCOUNTER 2024-04-27 13:14 | Outpatient (CLI) | payer MEDICARE, SELFPAY ==
--- NOTE | 2024-04-27 14:30 | NEURO_ITS ---
Impression: # Complains of numbness of right 4th and 5th fingers. ? # No Carpal Tunnel Syndrome. ? 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 ? # Mildly abnormal needle/EMG exam in right 1st DI and ADM. Nerve Conduction Studies Anti Sensory Summary Table ?Stim Site NR Peak (ms) P-T Amp (?V) Site1 Site2 Delta-P (ms) Dist (cm) Jhonathan (m/s) Right Median Anti Sensory (2-3nd Digit) Wrist ? 4.0 15.8 Wrist 2-3nd Digit 4.0 14.0 35 Wrist ? 3.6 17.8 Wrist 2-3nd Digit 4.0 14.0 35 Right Radial Anti Sensory (Base 1st Digit) Wrist ? 3.2 12.5 Wrist Base 1st Digit 3.2 0.0 Right Ulnar Anti Sensory (5th Digit) Wrist ? 3.8 48.1 Wrist 5th Digit 3.8 14.0 37 Motor Summary Table ?Stim Site NR Onset (ms) O-P Amp (mV) Site1 Site2 Delta-0 (ms) Dist (cm) Jhonathan (m/s) Right Median Motor (Abd Poll Brev) Wrist ? 4.5 4.8 Elbow Wrist 6.5 29.0 45 Elbow ? 11.0 2.7 Right Ulnar Motor (Abd Dig Minimi) Wrist ? 3.4 6.6 A Elbow Wrist 7.6 30.0 39 A Elbow ? 11.0 6.0 B Elbow Wrist 4.8 21.0 44 B Elbow ? 8.2 5.3 F Wave Studies ?NR F-Lat (ms) L-R F-Lat (ms) Right Median (Mrkrs) (Abd Poll Brev) ? 26.79 Right Ulnar (Mrkrs) (Abd Dig Min) ? 28.44 EMG ?Side Muscle Nerve Root Ins Act Fibs Amp Dur Recrt Comment Right 1stDorInt Ulnar C8-T1 Nml Nml Nml >12ms +1 Right Ext Indicis Radial (Post Int) C7-8 Nml Nml Nml Nml Nml Right Ext Digitorum Radial (Post Int) C7-8 Nml Nml Nml Nml Nml Right BrachioRad Radial C5-6 Nml Nml Nml Nml Nml Right PronatorTeres Median C6-7 Nml Nml Nml Nml Nml Right Abd Poll Brev Median C8-T1 Nml Nml Nml Nml Nml Right ABD Dig Min Ulnar C8-T1 Nml Nml Nml >12ms +1 Right Biceps Musculocut C5-6 Nml Nml Nml Nml Nml Right Triceps Radial C6-7-8 Nml Nml Nml Nml Nml Right Deltoid Axillary C5-6 Nml Nml Nml Nml Nml MTDD
== END 2024-04-27 13:15 | disposition home or self-care (01) ==
LOC: ANHNEURO 13:15
PROVIDERS: PCP Family Medicine; Visit Provider Plastic Surgery
DX: G56.21 Lesion of ulnar nerve, right upper limb (principal)
CPT/HCPCS: 95886; 95909

== ENCOUNTER 2024-06-21 06:21 | Day surgery (SDC) | payer MEDICARE, SELFPAY ==
--- NOTE | ~2024-06-21 | XR_ITS ---
EXAMINATION: XR fluoroscopy no charge DATE: 06/21/2024 07:52 INDICATION: Spondylosis without myelopathy or radiculopathy. TECHNIQUE: 23 intraoperative fluoroscopic views of the lumbar spine were obtained. I was not present. Fluoroscopy exposure time was 21 seconds. COMPARISON: None. FINDINGS: Images demonstrate lumbar transforaminal epidural injection at L5-S1. There is mild lumbar spondylosis. IMPRESSION: 1. Lumbar transforaminal epidural injection at L5-S1. Reviewed, dictated and finalized at location A. 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
--- NOTE | 2024-06-21 05:43 | P.OP_ITS ---
Procedure Note - Detailed Date of Procedure 06/21/24 Pre-op Diagnosis Spondylosis w/o Myelopathy or Radiculopathy Post-op Diagnosis Same Procedure Performed Bilateral Lumbar Transforaminal Epidural Steroid Injection under Fluoroscopic Guidance and with Contrast Control at L5-S1. Surgeon Jean Paul Machuca MD Anesthesia Local Description of Procedure INFORMED CONSENT: Risks, benefits and alternatives to the procedure were discussed in detail with the patient who expressed explicit understanding and consent to proceed. Patient was informed verbally and in written form regarding the risks associated with the procedure including the low risk of serious infection, bleeding/bruising, allergic reaction, nerve or organ injury, paralysis, procedural site pain or discomfort, worsening pain and/or mobility, failure to treat and/or disfigurement. The patient expressed explicit understanding and consent to proceed. All materials required for the procedure were available prior to procedure start. Site and side was marked prior to procedure and confirmed in the presence of the patient. PROCEDURE IN DETAIL: The patient was brought to the procedural suite and placed in the prone position. Patient was made comfortable with use of pillows under the head/chest, hips and ankles. Skin overlying the injection site was prepared broadly with ChloraPrep applicator and draped in a sterile manner. Aseptic technique was employed throughout. The endplates of the vertebral body at the site of interest were aligned in the AP view. Ipsilateral oblique angulation was utilized to better visualize the neuroforamen of interest. Local anesthesia was established by infiltration with approximately 5 mL of 0.5% PF lidocaine via a 1-1/2 inch 27-gauge needle. A 22-gauge 5.0 inch Meaagn (pencil point) spinal needle was advanced until the needle approached the 6 o'clock position on the pedicle just superior to the exiting nerve root. on the right at L5-S1. Lateral view was utilized to confirm appropriate position of the needle tip within the superior and posterior portion of the respective foramen. In an AP view, 1 mL of Omnipaque 300 contrast medium was injected after negative aspiration for CSF, blood or other bodily fluid, showing appropriate neurogram without evidence of intravascular or intrathecal spread of contrast. Digital subtraction imaging was used with an additional 1ml of the same contrast medium to confirm absence of intravascular contrast spread. A 1mL solution containing 3 mg of betamethasone was injected after negative repeat aspiration. Appropriate spread of the injectate was confirmed with washout of previously injected contrast. No parasthesias were elicited. Needle was removed completely intact without difficulty. The same exact procedure was repeated for all remaining levels on the contralateral side, left L5-S1 neuroforamen, modified as necessary to accommodate for the new target location with identical findings and results and no evidence of complication. Images were saved and documented in the patient chart. Patient's skin was hany aned and sterile bandage applied. The patient tolerated the procedure well. The patient was transported to the recovery area in stable condition where they were observed for an appropriate amount of time prior to discharge, without evidence of complication. The patient was instructed to avoid excessive activity for the next 48 hours, including climbing and frequent use of stairs. Showers only for 48 hours. They were instructed not to drive or operate heavy machinery for 24 hours. They are to monitor for severe headaches, fevers, chills, night sweats, erythema/swelling at the site or any other signs of infection, bleeding/bruising, bowel or bladder changes as well as new pain, weakness or numbness in the upper or lower extremity. Should they notice these changes, they are instructed to call our office immediately or report directly to the nearest Emergency Department if no answer or if after posted office hours. COMPLICATIONS: None COMMENTS: None CONTRAST WASTED: 26 mL Omnipaque 300. STEROID WASTED: 0 mg of betamethasone. Complications No immediate complications Condition Stable Disposition Same day [facility] Billing Surgery - Charge Forward: Surgery Billing
--- NOTE | 2024-06-21 05:43 | WPDHPUPDATE1 ---
History and Physical Update Update Date/Time: 06/21/24 05:43 History and Physical has been reviewed, including an updated exam of the patient. There are NO changes in the patient's condition. Risks, benefits, and alternatives have been discussed and questions answered. Patient agrees to proceed with procedure.
[2024-06-21 06:45] VITALS: BP 131/87; PULSE 69; RESP 14; TEMP 36.8; O2SAT 99
[2024-06-21 07:40] VITALS: BP 120/78; PULSE 64; RESP 12; O2SAT 97
[2024-06-21] MEDS: BETAMETHASONE SODIUM PHOSPHATE PF INJ 6 MG/ML VIAL INFILTRATE (07:47)
[2024-06-21] MEDS: LIDOCAINE 2% PF LOCAL INJ 5 ML VIAL 1 ML INFILTRATE (07:47)
[2024-06-21 07:50] VITALS: BP 121/82; PULSE 67; RESP 10; O2SAT 96
[2024-06-21] MEDS: LIDOCAINE 1% PF INJ 5 ML VIAL 3.5 ML INFILTRATE (07:51)
[2024-06-21 07:54] VITALS: BP 116/85; PULSE 62; RESP 16; O2SAT 98
== END 2024-06-21 08:05 ==
LOC: ASC 06:40
PROVIDERS: Visit Provider Anesthesiology Pain Medicine
PROC: (CPT 64483; principal; 2024-06-21 07:30)
DX: M47.27 Other spondylosis with radiculopathy, lumbosacral region (principal); M48.062 Spinal stenosis, lumbar region with neurogenic claudication; G89.29 Other chronic pain
CPT/HCPCS: 64483; 99199

== ENCOUNTER 2024-07-05 09:17 | Outpatient (CLI) | payer MEDICARE, SELFPAY ==
--- NOTE | 2024-07-05 09:23 | ECG_ITS ---
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
--- OUTSIDE RECORDS SUMMARY | 2024-07-05 09:26 | XMS_ITS | Continuity of Care Document ---
Author Organization [facility] Address [address] [place] [address] [place] [address] Phone Care Team Providers Care Spinning Frame Fixer Name Role Phone Rober Kang MD Unavailable Unavailable Advance Directives Directive Yes / No Effective Date File Name No Information Encounters Encounter Description Practice Location Reason(s) For Visit Diagnoses Date Provider Providers Copied on Encounter [facility], [id number] [place] [address] [address], [place], [place], [id number], [place] tel:[phone] [address] [place] Professional No Information 2 Pearl Richter. [address] [facility] [address], [place], [place], [id number], [place]. tel:[phone] Family History Family Member Type Diagnosis Age At Onset No Information Payers Payer name Insurance type Covered constitution party ID Authoriza tirodríguez(s) [employer] [id number] Social History Type Description Quantity Date Captured Comments Sex Male Smoking Status No Information Chief Complaint And Reason For Visit No Information Reason For Referral Reason For Referral No Information History Of Present Illness Encounter Date Complaint History Of Prese nt Illness No Information Functional Status Date Functional Assessmen t No Information Instructions Date Instruction Additional Infor mation No Information Assessments Type Assessment Date No Information Patient Care Teams Name Effective Dates (start - stop) Status Members No Information
== END 2024-07-05 09:18 | disposition home or self-care (01) ==
LOC: ANHCARD 09:19
PROVIDERS: PCP Family Medicine; Visit Provider Anesthesiology
DX: I10 Essential (primary) hypertension (principal); Z87.891 Personal history of nicotine dependence; G47.31 Primary central sleep apnea
CPT/HCPCS: 93005

== ENCOUNTER 2024-07-14 08:16 | Day surgery (SDC) | payer MEDICARE, SELFPAY ==
[2024-06-22 11:56] VITALS: BMI 29.0
--- NOTE | 2024-07-13 15:03 | WPDANESEPPF ---
Anes - Initial Pre Proc Eval Procedure: Operation Date: 07/14/24 10:30 Proposed Procedures p Revision Right Cubital Tunnel Release - Aneudy Lentz MD Date/Time: 07/13/24 15:03 Surgeon: Aneudy Lentz MD Pre Op Diagnosis: Recurrent Right Cubital Tunnel Syndrome Patient Data Age: 64 Gender: M Height: 1.7 m Weight: 84 kg Allergies Allergy/AdvReac Type Severity Reaction Status Date / Time Tetanus Vaccines and Toxoid Allergy Severe Unknown Verified 07/14/24 09:17 Home Medications ?Medication ?Instructions ?Recorded ?Confirmed ?Type acetaminophen 500 mg tablet 500 mg PO Q4-6H PRN Pain 06/23/19 07/14/24 History (Tylenol Extra Strength) albuterol sulfate 90 mcg/actuation 1 - 2 inh inhalation Q4-6H PRN 03/26/23 07/14/24 Rx aerosol inhaler shortness of breath or wheezing #8.5 grams fluticasone propionate 50 1 spray intranasal DAILY PRN nasal 01/06/24 07/14/24 History mcg/actuation nasal congestion spray,suspension (Flonase Allergy Relief) amlodipine 10 mg tablet 10 mg PO DAILY #90 tabs 01/19/24 07/14/24 Rx hydrochlorothiazide 25 mg tablet 25 mg PO DAILY #90 tabs 01/19/24 07/14/24 Rx metoprolol succinate 25 mg 25 mg PO DAILY #90 tabs 01/19/24 07/14/24 Rx tablet,extended release 24 hr naproxen sodium 220 mg tablet (All 220 mg PO Q6H PRN pain 06/14/24 07/14/24 History Day Pain Relief) tadalafil 10 mg tablet See Rx Instructions .Route 06/17/24 07/14/24 Rx .COMPLEX #30 tabs Patient hx anesthesia problems: none Family hx anesthesia problems: none Results Review: All pre-operative results and documents have been reviewed as part of the pre-operative evaluation. [facility] Past Medical History Medical History (Updated 07/13/24 @ 15:04 by Joshua Ibrahim DO) CAMRYN (obstructive sleep apnea) Prediabetes Environmental allergies GERD without esophagitis Hepatic steatosis Visualized on CT abd/pelvis 07/27/20 Lung nodule < 6cm on CT 5 mm and 3 mm nodules in right middle lobe on CT abd/pelvis from 3/12/21 Tobacco abuse Carpal tunnel syndrome of right wrist Diverticulitis of intestine with perforation 2007 Essential (primary) hypertension Chronic neck and back pain Hx of diverticulitis of colon Surgical History Surgical History S/P cubital tunnel release (~2001) History of ankle surgery (~2007) left History of carpal tunnel surgery (~2001) Right hand History of thumb surgery (~2000) History of colon surgery (~2008) 2009 and removed partial colon Family History Family History Mother Diabetes mellitus Obstructive sleep apnea on CPAP Father Hypertension Family history of emphysema Social History Social History Social History: The patient lives with his who is a durable power state's attorney for healthcare. The patient is a full code. 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 He has 3 daughters. The patient still continues to smoke less than a pack a cigarettes a day for over 46 years. The patient is a former drinker. He does not use any marijuana illicit drugs. Smoking packs per day: 0.75 Smoking cigarettes per day: 15.0 Years smoked: 52 Smoking pack-years: 39.00 Smoking status: Current every day smoker Tobacco type: cigarettes Second hand tobacco smoke exposure: No Alcohol intake: former Alcohol use details: last drink was in 2016 Substance use: never Substance use type: does not use Lack of Transportation: No Lack of Food: Never True Current Housing: I Do Not Have Housing Concerned About Future Housing: No Difficulty Paying Gas/Electric Bills: No Difficulty Paying for Meds: No Currently Unemployed: No Education: High School Diploma/GED Difficulty w/ Childcare or Family Care: No Living arrangements: with family Occupation/Education: unemployed Additional occupation/education comments: Disability Gender identity (if verbalized by the patient): Male Sexual Orientation (if Verbalized by the Patient): Straight or Heterosexual Spiritual care concerns: No Agree to blood products: Yes Anes - Eval Final PreProcedure Day of Procedure 07/13/24 15:03 Patient weight: overweight Heart: regular rate and rhythm Lungs: clear to auscultation Airway: Mallampati scale class II Neurological: alert and oriented Last oral intake: >/= 8 hours ASA classification: III Emergent: no Anesthetic plan: proceed Anesthesia type and monitoring: general GIVS and standard monitoring Results Review: All pre-operative results and documents have been reviewed as part of the pre-operative evaluation. Informed Consent: The patient's anesthetic plan and its attendant risks and benefits were discussed with the patient/family/POA. Questions were solicited and answers provided to the satisfaction of the patient/family/POA.
--- NOTE | 2024-07-14 06:52 | WPDHPUPDATE1 ---
History and Physical Update Update Date/Time: 07/14/24 06:52 Patient seen and examined in pre-operative holding area. No interval change in medical history or symptoms other than noting interval improvement in right lateral elbow pain and reduction in numbness.tingling. We discussed option to cancel surgery to see if imrpovement persists, but pt wishes to proceed. Patient recalls previous discussion of benefits and alternatives to procedure. Continues to desire to proceed with right cubital tunnel release revision. Reviewed procedure, post-op expectations and risks including but not limited to bleeding, infection, injury to tendon/nerve/vessel, decreased hand function, stiffness, RSD, no change or worsening of symptoms. I discussed the possible use of assistants and their participation in the case. Patient stated understanding and signed the consent form wishing to proceed.
--- NOTE | 2024-07-14 06:52 | W.PM.PROC2 ---
Procedure Note - Detailed Date of Procedure 07/14/24 Pre-op Diagnosis Recurrent Right Cubital Tunnel Syndrome Post-op Diagnosis Same Procedure Performed revision right cubital tunnel relase Surgeon Aneudy Lentz MD Master Machinist Yonny Voss PA-C Anesthesia MAC Description of Procedure INFORMED CONSENT:The patient was seen and examined and marked in the pre-op area.? The patient signed the consent form. PROCEDURE IN DETAIL: The patient taken back to OR on the stretcher in supine position. Time out performed with anesthesia, surgeon and staff agreeing on patient's name site and surgery to be performed SCDs were placed on the lower extremities and inflated A tourniquet was placed on {right} upper extremity and antibiotics given IV After anesthesia administered sedation I injected {8}cc 1%lido with epi and 0.5% marcaine plain at the operative site The?{right upper extremity}?was prepped and draped in sterile fashion the??{right upper extremity} was??exsanguinated with Esmarch bandage and tourniquet inflated to 250mmHg I proceeded with making a longitudinal incision over cubital tunnel utilizing patients old healed incision through skin and dermis with 15 blade scalpel. Littler scissors were used to spread through subcutanoeus tissue and scar tissue down the the ecu fascia distally. An incision was made in this fascia and scar tissue with 15 blade scalpel and then littler scissors spread and the distal end of the ulnar nerve was visualized exiting the carpal tunnel. I proceeded with complete retrograde dissection of the ulnar nerve with littler scissors, freeing it from its constricting scar tissue which extended ~7cm proximally where intramuscular septum was likely released in the past. The nerve appeared round and healthy with visible vaso nervorum after release. There was no subluxation on elbow range of motion and there was no indication for anterior transposition at this time. I irrigated with normal saline and closed with 3-0 vicryl and 4-0 monocryl The incision was covered with Dermabond then 4x4s, rishi, and a posterior elbow splint for patient safety, security and comfort and secured with qiana bandages after the tourniquet was let down noting the hand was warm and well perfused.? Patient awaken from anesthesia and transferred to recovery in stable condition Complications - none EBL- 1cc Disposition - home in stable conditions Yonny Voss PA-C was essential for positioniing, retraction, closure and dressing placement [facility] Billing Surgery - Charge Forward: Surgery Billing ([id number],22 for yonny)
[2024-07-14 09:19] VITALS: BP 115/84; PULSE 70; RESP 16; TEMP 36.9; O2SAT 98
[2024-07-14] MEDS: LACTATED RINGERS 1,000 ML 30 ML IV CONT (09:30)
[2024-07-14] MEDS: ceFAZolin SODIUM 2 GM/20 ML SW SYRINGE IV PUSH (10:48)
[2024-07-14] MEDS: BUPivacaine HCL 0.5% PF 30 ML VIAL INFILTRATE (10:52)
[2024-07-14] MEDS: LIDO 1%/EPINEPHRINE 1:100,000 10 ML VIAL 5 ML INFILTRATE (10:56)
[2024-07-14 11:15] VITALS: BP 94/68; PULSE 65; RESP 16; O2SAT 99
[2024-07-14 11:25] VITALS: BP 97/76; PULSE 64; RESP 14; O2SAT 97
[2024-07-14 11:35] VITALS: BP 109/75; PULSE 60; RESP 15; O2SAT 100
[2024-07-14 11:45] VITALS: BP 111/82; PULSE 58; RESP 16; O2SAT 99
== END 2024-07-14 12:00 | disposition home or self-care (01) ==
PROVIDERS: PCP Family Medicine; Visit Provider Plastic Surgery
PROC: (CPT 64718; principal; 2024-07-14 10:30)
DX: G56.21 Lesion of ulnar nerve, right upper limb (principal)
CPT/HCPCS: 64718

== ENCOUNTER 2024-07-27 08:47 | Outpatient (CLI) | payer MEDICARE, SELFPAY ==
--- NOTE | ~2024-07-27 | NM_ITS ---
EXAMINATION: NM guido stress w perfusion DATE: 07/27/2024 12:29 INDICATION: Abnormal electrocardiogram. TECHNIQUE: Rest images were obtained following intravenous administration of 10.1 mCi Tc99m tetrofosm in (Myoview). The patient was infused intravenously with Lexiscan (regadenoson). Then, 32.5 mCi Tc99m tetrofosmin (Myoview) was administered intravenously, and stress images were obtained. Data was miri nstructed into short axis and horizontal and vertical long axis SPECT images. Gated SPECT images were also obtained. COMPARISON: Chest CT 01/25/2024 FINDINGS: There is a small, mild, fixed perfusion defect involving mid inferoseptal segment of left v entricle, consistent with infarct. No reversible component to suggest ischemia.. There is no segment al wall motion abnormality. Left ventricular ejection fraction measures 62%. IMPRESSION: 1. Small area of mild infarct involving mid inferoseptal segment of left ventricle. 2. Normal left ventricular ejection fraction measuring 62%. Reviewed, dictated and finalized at location B. IMPRESSION: 1. Small area of mild infarct involving mid inferoseptal segment of left ventri hany. 2. Normal left ventricular ejection fraction measuring 62%.
--- NOTE | 2024-07-27 08:58 | EST_ITS ---
Patient Info Name: Mitch Juarez Age: 64 years : 1960 Gender: Male Ht: 67 in Wt: 192 lbs BSA: 2.05 m2 HR: 61 bpm BP: 104 / 73 mmHg Exam Date: 07/27/2024 10:08 AM Exam Location: Echo Lab Patient Status: Outpatient Admit Date: 07/27/2024 Staff Ordering Physician: Warren Chavez MD Attending Provider: Kathy, Sonny Exercise Technologist: Fabian MICHELLE RRT Exercise Physician: Vignesh Hicks DO Exam Type: CA stress guido w NM Study Info Indications R94.31 - Abnormal electrocardiogram ECG EKG A regadenoson stress test was performed. Summary 1. 1. Negative lexiscan stress test for ischemic ST changes by ECG criteria. 2. 2. Stable hemodynamics throughout the test. 3. 3. Nuclear scan to follow and will be reported separately. Please correlate with it. 4. 4. Patient informed of the above results. Protocol: Lexiscan Stress ECG Details Stage: REST Duration (min): 0 min : 28 sec HR (bpm): 68 SBP (mmHg): --- DBP (mmHg): --- Stage: REST Duration (min): 8 min : 2 sec HR (bpm): 60 SBP (mmHg): 104 DBP (mmHg): 73 Stage: STAGE 1 Duration (min): 1 min : 0 sec HR (bpm): 62 SBP (mmHg): 123 DBP (mmHg): 72 Stage: RECOVERY Duration (min): 1 min : 0 sec HR (bpm): 73 SBP (mmHg): 123 DBP (mmHg): 72 Stage: RECOVERY Duration (min): 1 min : 14 sec HR (bpm): 75 SBP (mmHg): 123 DBP (mmHg): 72 Rest HR: 60 bpm Peak HR: 78 bpm Rest Sys BP: 104 mmHg Peak Sys BP: 123 mmHg Max Pred HR: 157 bpm % Max Pred HR: 50 % Target HR: 133 bpm Max RPP: 9,594 bpm*mmHg Termination Reason: Completed protocol Cardiac Symptoms: Shortness of breath Total Time: 1 min : 0 sec Rest Navas BP: 73 mmHg Peak Navas BP: 72 mmHg Total Dose: 0.4 mg Resting ECG Sinus rhythm, RBBB, LAFB. Stress ECG No ST changes. Arrhythmias None. Report Signatures
--- OUTSIDE RECORDS SUMMARY | 2024-07-27 09:15 | XMS_ITS | Continuity of Care Document ---
Author Organization [facility] Address [address] [place] [address] [place] [address] Phone Care Team Providers Care Textile Technical Officer Name Role Phone Rober Kang MD Unavailable Unavailable Advance Directives Directive Yes / No Effective Date File Name No Information Encounters Encounter Description Practice Location Reason(s) For Visit Diagnoses Date Provider Providers Copied on Encounter [facility], [id number] [place] [address] [address], [place], [place], [id number], [place] tel:[phone] [address] [place] Professional No Information 2 Pearl Richter. [address] [facility] [address], [place], [place], [id number], [place]. tel:[phone] Family History Family Member Type Diagnosis Age At Onset No Information Payers Payer name Insurance type Covered democrat ID Authoriza tirodríguez(s) [employer] [id number] Social History Type Description Quantity Date Captured [...]
== END 2024-07-27 08:48 | disposition home or self-care (01) ==
DX: R94.31 Abnormal electrocardiogram [ECG] [EKG] (principal); I44.4 Left anterior fascicular block
CPT/HCPCS: 78452; 93017; A9502; J2785

== ENCOUNTER 2024-08-09 01:41 | Day surgery (SDC) | payer MEDICARE, SELFPAY ==
[2024-07-29 11:05] VITALS: BMI 29.7
--- NOTE | 2024-07-29 11:07 | PC.NURSE ---
Report to the Outpatient Waiting Room, entrance under the green pavilion located off [facility], at time _0900_ on date _[id number]_. Planned Procedure Time: _1100_.? Time changes happen often and if your time is changed the preop area will call you the afternoon before. - You and your visitor will be asked to self-screen and do not enter if you have any COVID symptoms. Please call surgeon if you need to reschedule. - A mask is optional within the hospital at this time. Patients may have clear liquids (water, carbonated beverages, clear teas, apple juice) until 3 hours prior to surgery with a maximum of 20 ounces. - No food from midnight until time of surgery and no smoking, or chewing tobacco (or any form of nicotine). No chewing gum, candy or mints. Take only the following medications with a SIP of water on the morning of surgery: ___Metoprolol, Amlodipine and if needed may use inhaler and or take Acetaminophen. DO NOT STOP ANY OF YOUR OTHER PRESCRIPTION MEDICATIONS PRIOR TO SURGERY EXCEPT THE FOLLOWING Hold all vitamins and supplements for 3 days per anesthesiologist. Medications to discontinue per physician ___Patien____ Date to take last dose Please no make-up, nail niuean, hairspray, perfume, deodorant, or body powder the day of surgery.? No jewelry (including any body piercings) or valuables the day of surgery, leave them at home.? Please take a shower or bath the night before, or the morning of, surgery with an antibacterial soap.? Wear comfortable, loose fitting clothing.? - Jewelry must be removed prior to entering the operating room.? Rings and piercings that are not removed may be cut off. - The hospital will not accept responsibility for valuables.? - Please leave all valuables, including medications, at home the day of surgery. If you are going home after surgery, a licensed delivery truck driver must drive you home.? - NO public transportation without another adult if you receive anesthesia. - We recommend that an adult stay with you for 24 hours following discharge. - We also recommend that you do not drive, make important decision, drink alcoholic beverages, or take any drugs that were not prescribed by your health care provider for at least 24 hours after your discharge time. Follow any additional instructions given to you from your surgeon. Telephone instructions given to ____and asked if any additional questions and then verbalized understanding. Patient advised to call surgeon office or pre surgery nurse liaison [phone] if any additional questions.
--- NOTE | 2024-07-29 11:14 | PC.NURSE ---
Report to the Outpatient Waiting Room, entrance under the green pavilion located off [facility], at time _0900_ on date _[id number]_. Planned Procedure Time: _1100_.? Time changes happen often and if your time is changed the preop area will call you the afternoon before. - You and your visitor will be asked to self-screen and do not enter if you have any COVID symptoms. Please call surgeon if you need to reschedule. - A mask is optional within the hospital at this time. - No food or drink from midnight until time of surgery and no smoking, or chewing tobacco (or any form of nicotine). No chewing gum, candy or mints. Take only the following medications with a SIP of water on the morning of surgery: ___Metoprolol, Amlodipine and if needed may take Acetaminophen and or Albuterol DO NOT STOP ANY OF YOUR OTHER PRESCRIPTION MEDICATIONS PRIOR TO SURGERY EXCEPT THE FOLLOWING Hold all vitamins and supplements for 3 days per anesthesiologist. Medications to discontinue per physician ____Ayan says he's stopping Naproxen 1 week before procedure.___ Date to take last qozu___[phone]___ Please no make-up, nail kazakh, hairspray, perfume, deodorant, or body powder the day of surgery.? No jewelry (including any body piercings) or valuables the day of surgery, leave them at home.? Please take a shower or bath the night before, or the morning of, surgery with an antibacterial soap.? Wear comfortable, loose fitting clothing.? - Jewelry must be removed prior to entering the operating room.? Rings and piercings that are not removed may be cut off. - The hospital will not accept responsibility for valuables.? - Please leave all valuables, including medications, at home the day of surgery. If you are going home after surgery, a licensed sales warehouse driver must drive you home.? - NO public transportation without another adult if you receive anesthesia. - We recommend that an adult stay with you for 24 hours following discharge. - We also recommend that you do not drive, make important decision, drink alcoholic beverages, or take any drugs that were not prescribed by your health care provider for at least 24 hours after your discharge time. Follow any additional instructions given to you from your surgeon. Telephone instructions given to _Rick___and asked if any additional questions and then verbalized understanding. Patient advised to call surgeon office or pre surgery nurse liaison [phone] if any additional questions.
--- NOTE | ~2024-08-09 | XR_ITS ---
EXAMINATION: XR fluoroscopy no charge DATE: 08/09/2024 13:00 CDT INDICATION: RADIOFREQUENCY ABLATION . TECHNIQUE: 10 fluoroscopic images of the cervical spine were obtained during radiofrequency ablation, performed by Jean Paul Machuca MD. I was not present during the procedure. Fluoroscopy exposure time was 173.1 seconds. Air Kerma 20.39 mGy. DAP 0.91089 mGym2. COMPARISON: None FINDINGS/IMPRESSION: Fluoroscopic documentation of radio frequency ablation. Please refer to the operative note for comple te procedural details . Reviewed, dictated and finalized at location K.
--- OUTSIDE RECORDS SUMMARY | 2024-08-09 01:44 | XMS_ITS | Continuity of Care Document ---
Author Organization [facility] Address [address] [place] [address] [place] [address] Phone Care Team Providers Care Auto Adjudication Specialist Name Role Phone Rober Kang MD Unavailable Unavailable Advance Directives Directive Yes / No Effective Date File Name No Information Encounters Encounter Description Practice Location Reason(s) For Visit Diagnoses Date Provider Providers Copied on Encounter [facility], [id number] [place] [address] [address], [place], [place], [id number], [place] tel:[phone] [address] [place] Professional No Information 2 Pearl Richter. [address] [facility], [place], [place], [id number], [place]. tel:[phone] Family History Family Member Type Diagnosis Age At Onset No Information Payers Payer name Insurance type Covered green party ID Authoriza tirodríguez(s) [employer] [id number] Social History Type Description Quantity Date Captured [...]
[2024-08-09 11:09] VITALS: BP 104/70; PULSE 67; RESP 18; TEMP 37; O2SAT 99
--- NOTE | 2024-08-09 11:29 | WPDHPUPDATE1 ---
History and Physical Update Update Date/Time: 08/09/24 11:29 History and Physical has been reviewed, including an updated exam of the patient. There are NO changes in the patient's condition. Risks, benefits, and alternatives have been discussed and questions answered. Patient agrees to proceed with procedure.
--- NOTE | 2024-08-09 11:30 | W.PM.PROC2 ---
Procedure Note - Detailed Date of Procedure 08/09/24 Pre-op Diagnosis cervical radiculopathy Post-op Diagnosis Same Procedure Performed Thermal Radiofrequency Ablation of the bilateral Cervical Medial Branches at C2-3, C3, C4 to ablate the bilateral C2-3, C3-4 facet joints under Fluoroscopic Guidance (4 levels treated). Surgeon Jean Paul Machuca MD Alley Cleaner None. Anesthesia Local (w/ IV Moderate Sedation) Description of Procedure INFORMED CONSENT: Risks, benefits and alternatives to the procedure were discussed in detail with the patient who expressed explicit understanding and consent to proceed. Patient was informed verbally and in written form regarding the risks associated with the procedure including the low risk of serious infection, bleeding/bruising, allergic reaction, nerve or organ injury, paralysis, procedural site pain or discomfort, worsening pain and/or mobility, failure to treat and/or disfigurement. The patient expressed explicit understanding and consent to proceed. All materials required for the procedure were available prior to procedure start. Site and side was marked prior to procedure and confirmed in the presence of the patient. PROCEDURE IN DETAIL: The patient was brought to the procedural suite and placed in the prone position with head stabilized with a horseshoe pillow and cervical ramp. Patient was made comfortable with use of pillows under the head/chest, hips and ankles. Skin overlying the injection site on the affected side(s) was prepared broadly with 10mL tinted ChloraPrep applicator and draped in a sterile manner. Strict aseptic technique was utilized throughout. The endplates of the vertebral bodies at the site(s) of interest were aligned in the AP view. Ipsilateral oblique angulation was utilized to optimize visualization of the pars interarticularis at each target site. Local anesthesia was established by infiltration with approximately 5 mL of 1% lidocaine via a 1-1/2 inch 27-gauge needle. An 18-gauge 100mm RF needle with curved 10mm active tip was advanced in the AP view until the needle tip contacted the periosteum of the pars interarticularis at the target site, right C2-3 parallel to the course of the targeted peripheral nerve branch. Lateral view was utilized to adjust and confirm the appropriate placement of the needle tip just anterior to the center point of the interarticularis, bisecting the distance between adjacent joint spaces. The appropriately-sized RF cannula was inserted into the RF needle and motor stimulation performed with no subjective or objective evidence of recruited muscle activity with stimulation up to 2.0 volts at a frequency of 2Hz. A 1.5 mL solution of 2.0% PF lidocaine was injected via the appropriately positioned RF cannula after negative aspiration. The grounding electrode was confirmed to be in place with good contact and functioning appropriately. After a 90s pause, lesioning was performed to 90 degrees centigrade for 90s ensuring lack of symptoms in the extremity throughout. Needle was withdrawn approximately 1-2 mm and rotated 180 degrees at each level. Lesioning was then repeated in a similar manner as above. The patient tolerated this well. No parasthesias were elicited. Needle was removed completely intact without difficulty. The same procedure was then repeated for all intended levels/ structures on the ipsilateral side, right C3, C4, with identical methodology, modified to compensate for new location, with similar results and no evidence of complication. The same procedure was then repeated for all intended levels/ structures on the contralateral side, left C2-3, C3, C4, with identical methodology, modified to compensate for new contralateral location/approach, with similar results and no evidence of complication. Images were saved and documented in the patient's chart. The patient's skin was cleaned and sterile bandages applied. The patient tolerated the procedure well. The patient was transported to the recovery area in stable condition where they were observed for an appropriate amount of time prior to discharge, without evidence of complication. The patient was instructed to avoid excessive activity for the next 48 hours, including overhead work, reaching and device/computer usage. Showers only for 48 hours. They were instructed not to drive or operate heavy machinery for 24 hours. They are to monitor for severe headaches, fevers, chills, night sweats, erythema/swelling at the site or any other signs of infection, bleeding/bruising, bowel or bladder changes as well as new pain, weakness or numbness in the upper or lower extremity. Should they notice these changes, they are instructed to call our office immediately or report directly to the nearest Emergency Department if no answer or if after posted office hours. Complications None Condition Stable Disposition PACU [facility] Billing Surgery - Charge Forward: Surgery Billing
[2024-08-09] MEDS: LACTATED RINGERS 1,000 ML 30 ML IV CONT (13:10)
--- NOTE | 2024-08-09 13:24 | WPDANESEPPF ---
Anes - Initial Pre Proc Eval Procedure: Operation Date: 08/09/24 12:30 Proposed Procedures p Thermal Radiofrequency Ablation of Bilateral C2, C3, C4 Medial Branches Addressing Bilateral C2-3, C3-4 Facet Joints Under Fluoroscopic Guidance - Jean Paul Machuca MD Date/Time: 08/09/24 13:24 Surgeon: Jean Paul Machuca MD Pre Op Diagnosis: cervical radiculopathy Patient Data Age: 64 Gender: M Height: 1.71 m Weight: 82.6 kg Last Vital Signs Temp 37.0 C 08/09/24 11:09 Pulse 67 08/09/24 11:09 Resp 18 08/09/24 11:09 BP 104/70 08/09/24 11:09 Pulse Ox 99 08/09/24 11:09 O2 Del Method Room Air 08/09/24 11:09 Allergies Allergy/AdvReac Type Severity Reaction Status Date / Time Tetanus Vaccines and Toxoid Allergy Severe Unknown Verified 08/09/24 10:56 Home Medications ?Medication ?Instructions ?Recorded ?Confirmed ?Type acetaminophen 500 mg tablet 500 mg PO Q4-6H PRN Pain 06/23/19 07/29/24 History (Tylenol Extra Strength) albuterol sulfate 90 mcg/actuation 1 - 2 inh inhalation Q4-6H PRN 03/26/23 07/29/24 Rx aerosol inhaler shortness of breath or wheezing #8.5 grams fluticasone propionate 50 1 spray intranasal DAILY PRN nasal 01/06/24 07/29/24 History mcg/actuation nasal congestion spray,suspension (Flonase Allergy Relief) naproxen sodium 220 mg tablet (All 220 mg PO Q6H PRN pain 06/14/24 08/09/24 History Day Pain Relief) tadalafil 10 mg tablet See Rx Instructions .Route 06/17/24 07/29/24 Rx .COMPLEX #30 tabs amlodipine 10 mg tablet See Rx Instructions .Route 07/19/24 08/09/24 Rx .COMPLEX #90 tabs hydrochlorothiazide 25 mg tablet See Rx Instructions .Route 07/19/24 08/09/24 Rx .COMPLEX #90 tabs metoprolol succinate 25 mg See Rx Instructions .Route 07/19/24 08/09/24 Rx tablet,extended release 24 hr .COMPLEX #90 tabs Patient hx anesthesia problems: none Family hx anesthesia problems: none Results Review: All pre-operative results and documents have been reviewed as part of the pre-operative evaluation. [facility] Past Medical History Medical History CAMRYN (obstructive sleep apnea) Prediabetes Environmental allergies GERD without esophagitis Hepatic steatosis Visualized on CT abd/pelvis 07/27/20 Lung nodule < 6cm on CT 5 mm and 3 mm nodules in right middle lobe on CT abd/pelvis from 07/27/20 Tobacco abuse Carpal tunnel syndrome of right wrist Diverticulitis of intestine with perforation 2007 Essential (primary) hypertension Chronic neck and back pain Hx of diverticulitis of colon Surgical History Surgical History S/P cubital tunnel release (~2001) History of ankle surgery (~2007) left History of carpal tunnel surgery (~2001) Right hand History of thumb surgery (~2000) History of colon surgery (~2008) 2008 and removed partial colon Family History Family History Mother Diabetes mellitus Obstructive sleep apnea on CPAP Father Hypertension Family history of emphysema Social History Social History Social History: The patient lives with his who is a durable power hazardous waste material technician for healthcare. The patient is a full code. 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 He has 3 daughters. The patient still continues to smoke less than a pack a cigarettes a day for over 46 years. The patient is a former drinker. He does not use any marijuana illicit drugs. Smoking packs per day: 0.75 Smoking cigarettes per day: 15.0 Years smoked: 52 Smoking pack-years: 39.00 Smoking status: Current every day smoker Tobacco type: cigarettes Second hand tobacco smoke exposure: No Alcohol intake: former Alcohol use details: last drink was in 2016 Substance use: never Substance use type: does not use Lack of Transportation: No Lack of Food: Never True Current Housing: I Do Not Have Housing Concerned About Future Housing: No Difficulty Paying Gas/Electric Bills: No Difficulty Paying for Meds: No Currently Unemployed: No Education: High School Diploma/GED Difficulty w/ Childcare or Family Care: No Living arrangements: with family Occupation/Education: unemployed Additional occupation/education comments: Disability Gender identity (if verbalized by the patient): Male Sexual Orientation (if Verbalized by the Patient): Straight or Heterosexual Spiritual care concerns: No Agree to blood products: Yes Anes - Eval Final PreProcedure Day of Procedure 08/09/24 13:24 Patient weight: overweight Heart: regular rate and rhythm Lungs: clear to auscultation Airway: Mallampati scale class II Neurological: alert and oriented Last oral intake: >/= 8 hours ASA classification: III Emergent: no Anesthetic plan: proceed Anesthesia type and monitoring: general GIVS and standard monitoring Results Review: All pre-operative results and documents have been reviewed as part of the pre-operative evaluation. Informed Consent: The patient's anesthetic plan and its attendant risks and benefits were discussed with the patient/family/POA. Questions were solicited and answers provided to the satisfaction of the patient/family/POA.
[2024-08-09] MEDS: ceFAZolin 2 GM/D5W 50 ML 2 GM/50 ML BAG IVPB (13:33)
[2024-08-09] MEDS: LIDOCAINE 1% LOCAL INJ 10 ML VIAL 5 ML INFILTRATE (13:46)
[2024-08-09] MEDS: BUPivacaine HCL 0.5% 10 ML AMP INFILTRATE (13:46)
[2024-08-09] MEDS: LIDOCAINE 2% PF LOCAL INJ 5 ML VIAL 10 ML INFILTRATE (13:47)
[2024-08-09 14:12] VITALS: BP 125/75; PULSE 64; RESP 14; O2SAT 97
[2024-08-09 14:42] VITALS: BP 109/68; PULSE 66; RESP 16
[2024-08-09 15:09] VITALS: BP 113/73; PULSE 72; RESP 16
== END 2024-08-09 15:13 | disposition home or self-care (01) ==
PROVIDERS: PCP Family Medicine; Visit Provider Anesthesiology Pain Medicine
PROC: (CPT 64633; principal; 2024-08-09 12:30)
DX: M47.812 Spondylosis without myelopathy or radiculopathy, cervical region (principal); M54.2 Cervicalgia; G89.29 Other chronic pain; F17.210 Nicotine dependence, cigarettes, uncomplicated
CPT/HCPCS: 64633; 64634 ×6; 99199; J0690; J2003; J2250; J2704; J3010; J7120

== ENCOUNTER 2024-10-11 07:39 | Day surgery (SDC) | payer MEDICARE, SELFPAY ==
[2024-09-26 13:23] VITALS: BMI 30.4
--- NOTE | ~2024-10-11 | XR_ITS ---
INTRAOPERATIVE FLUOROSCOPY: CLINICAL HISTORY: 64 years old Male; DIAG/PROG DIPAK L2,L3,L4,L5 MEDIAL BRANCH BLK #2 PROCEDURE COMMENTS: Limited intraoperative fluoroscopy of the lumbar spine was performed. CUMULATIVE DOSE: 21.4 mGy FLUOROSCOPY TIME: 74 seconds FINDINGS/IMPRESSION: Please refer to operative note for further details. Reviewed, dictated and finalized at location A.
--- OUTSIDE RECORDS SUMMARY | 2024-10-11 08:40 | XMS_ITS | Continuity of Care Document ---
Author Organization [facility] Address [address] [place] [address] [place] [address] Phone Care Team Providers Care Space And Missile Operations Spacelift Name Role Phone Rober Kang MD Unavailable Unavailable Advance Directives Directive Yes / No Effective Date File Name No Information Encounters Encounter Description Practice Location Reason(s) For Visit Diagnoses Date Provider Providers Copied on Encounter [facility], [address] [place] [address] [address], [place], [place], [id number], [place] tel:[phone] [address] [place] Professional No Information 2 Pearl Richter. [address] [facility] [address], [place], [place], [id number], [place]. tel:[phone] Family History Family Member Type Diagnosis Age At Onset No Information Payers Payer name Insurance type Covered libertarian ID Authoriza tirodríguez(s) [employer] [id number] Social History Type Description Quantity Date Captured [...]
--- OUTSIDE RECORDS SUMMARY | 2024-10-11 08:40 | XMS_ITS | Encounter Summary ---
Author Organization [facility] Address [address] [place] [address] Care Team Providers Care Senior Operations Manager Name Role Phone Sonny Chavez MD Primary Care Provider Encounter Details Date Type Department Care Team (Late st Contact Info) Description 08/29/2024 Results Follow-Up [facility] Medical Group Cardiology [address] [address] Roz Yousif MD [address] [facility] [address] [place] [id number] [facility] Heart and Coronary Arteries W Morphology when Performed Social History Tobacco Use Types Packs/Day Years Used Date Smoking Tobacco: Every Day Cigarettes Passive Smoke Exposure: Past Sex and Gender Information Value Date Recorded Sex Assigned at Not on file Legal Sex Male 9:15 PM DIRECTOR OF STRATEGIC COMMUNICATIONS Gender Identity Not on file Sexual Orientation Not on file documented as of this encounter Plan of Treatment Not on file documented as of this encounter Visit Diagnoses Not on filedocumented in this encounter Care Teams Senior Operations Manager Relationship Specialty Start Date End Date Sonny Chavez MD [address] [facility] [place] [address] [place], [place] [id number] PCP - General Family Practice 08/11/24 documented as of this encounter
--- OUTSIDE RECORDS SUMMARY | 2024-10-11 08:40 | XMS_ITS | Clinical Summary ---
Author Organization [facility] [address] [place] [address] 162 [address] [place] [address] Care Team Providers Care Grinder Dresser Name Role Phone Sonny Chavez MD Primary Care Provider Allergies No known active allergies Medications amLODIPine (NORVASC) 10 mg tablet Take 1 tablet (10 mg total) by mouth daily 07/21/2024 Active hydroCHLOROthiaz angel (HYDRODIURIL) 25 mg tablet Take 1 tablet (25 mg total) by mouth daily 07/24/2024 Active metoprolol XL (TOPROL-XL) 25 mg extended release tablet Take 1 tablet (25 mg total) by mouth daily 07/21/2024 Active tadalafiL (ADCIRCA) 10 mg tablet 06/20/2024 Active Active Problems Problem Noted Date Diagnosed Date Cardiovascular stress test abnormal 08/11/2024 Dyspnea on exertion 08/11/2024 Primary hypertension 08/11/2024 Tobacco dependence 08/11/2024 Encounters Date Type Department Care Team Description 08/29/2024 Results Follow-Up [facility] Cardiology [address] [place] [address] [place] [phone] Roz Yousif MD CTA Heart and Coronary Arteries W Morphology when Performed 08/29/2024 Telephone [facility] Cardiology [address] [facility] [address] [place] [address] Roz Yousif MD 08/24/2024 8:44 AM CDT - 08/24/2024 11:59 PM CDT Hospital Encounter [facility] ([facility]) [address] [place] [address] Cardiovascular stress test abnormal Discharge Disposition: Discharge to home or self care 08/24/2024 Orders Only [facility] ([facility]) [address] [place] [address] Gavi West RN 08/12/2024 Orders Only [facility] Cardiology [address] [facility] [address] [place] [address] Alize Nettles MD 08/11/2024 2:30 PM CDT Office Visit [facility] Cardiology [address] [place] [address] [address] [place] [phone] Roz Yousif MD Cardiovascular stress test abnormal (Primary Dx); Nonspecific abnormal results of cardiovascular function study; Left anterior fascicular block; Dyspnea on exertion; Primary hypertension; Tobacco dependence 08/11/2024 Orders Only [facility] Cardiology [address] [place] [address] [address] [place] [phone] Alize Nettles MD 08/04/2024 Telephone [facility] Cardiology [address] [facility] [address] [place] [address] Kameron Thakkar MD from Last 3 Months Surgical History Surgery Date Site/Laterality Comments EXCISION / REPAIR HYDROCELE PEDIATRIC ANKLE SURGERY THUMB SURGERY Left CARPAL TUNNEL RELEASE WRIST SURGERY Right LAPAROSCOPIC COLON RESECTION Medical History Medical History Date Comments Hypertension Family History Medical History Relation Name Comments Emphysema Father Lung cancer Father Kidney failure Mother Relation Name Status Comments Brother 1 Alive Brother 2 Alive Father Alive Half-Brother Alive Mother Social History Tobacco Use Types Packs/Day Years Used Date Smoking Tobacco: Every Day Cigarettes Passive Smoke Exposure: Past Tobacco Cessation:Ready to Q uit: Not Asked; Counseling Given: Not Answered Sex and Gender Information Value Date Recorded Sex Assigned at Not on file 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 Gender Identity Not on file Sexual Orientation Not on file Obstetrics History Last Filed Vital Signs Vital Sign Reading Time Taken Comments Blood Pressure 116/84 08/24/2024 9:16 AM CDT Pulse 66 08/24/2024 9:16 AM CDT Temperature - - Respiratory Rate - - Oxygen Saturation 97% 08/11/2024 2:45 PM CDT Inhaled Oxygen Concentration - - Weight 89.8 kg (198 lb) 08/11/2024 2:45 PM CDT Height 170.2 cm (5' 7 ) 08/11/2024 2:45 PM CDT Body Mass Index 31.01 08/11/2024 2:45 PM CDT Plan of Treatment Health Maintenance Due Date Last Done Comments Colon Cancer Screening-Colonoscopy 1961 Depression Screening 1961 Hepatitis C Screening 1961 Prostate Cancer Screening-PSA 1961 DTaP/Tdap/Td Vaccine (1 - Tdap) 02/09/1972 Hepatitis B Screening 1979 Regular Well Visit/Exam 18-64 1979 Covid-19 Vaccine Completed 02/10/2024, , 03/31/2022, Additional history exists Influenza Vaccine Completed 02/10/2024, , 03/31/2022, Additional history exists Pneumococcal vaccine <65 Completed 02/10/2024 Zoster Vaccine Completed 04/19/2024, 02/10/2024 Procedures Procedure Name Priority Date/Time Associated Diagnosis Comments CT HEART MORPHOLOGY AND CORONARY ARTERIES W CONTRAST Schedule Routine, Read Routine (OP Routine) 08/24/2024 9:38 AM CDT Cardiovascular stress test abnormal POCT CREATININE - DEVICE Routine 08/24/2024 9:18 AM CDT STRESS TEST FOR DUAL READ Routine 07/27/2024 3:31 PM CDT from Last 3 Months Results * CTA Heart and Coronary Arteries W Morphology when Performed (08/24/2024 9:38 AM CDT) Anatomical Region Laterality Modality Chest N/A Computed Tomogra phy 08/24/2024 2:27 PM CDT Impressions 08/24/2024 4:37 PM CDT 1. No evidence of coronary artery disease. 2. Sub-6mm solid and groundglass nodules in both lungs. Compare to prior imaging to assess intermediate accountant stability. If unavailable, low dose chest CT is recommended in 6 months. Recommend follow up of the Incidental lung nodule Additional Imaging In 6 Months with low dose chest CT. Dictated by: Gilda Roa MD The radiology attending physician has personally reviewed this study, and had reviewed and/or edited this written report and agrees with it. Electronically signed by: Iraida Hung M.D. Narrative 08/24/2024 4:37 PM CDT EXAMINATION: CORONARY CT ANGIOGRAM HISTORY: 64 y.o. male with hypertension, tobacco dependence who presents for a consultation for abnormal stress test. Had an EKG done before surgery that showed RBBB. Stress test was done for further evaluation, which showed small, mild fixed perfusion defect involving the mid inferoseptal segment TECHNIQUE: CT angiography of the coronary arteries was performed after the administration of 92 mL of Optiray 350. Images were also obtained precontrast for the purposes of calcium scoring. 0 mg of metoprolol was administered intravenously prior to the examination. The patient's heart rate and blood pressure at the time of the examination were 70 beats per minute and 116/84 mmHg. Images were transferred to a 3D workstation for additional post-processing. FINDINGS: The coronary arteries are left system dominant. There is no anomalous coronary origin or course. Right coronary system: No evidence of atherosclerotic disease. Left coronary system: There is a ramus intermedius. No evidence of atherosclerotic disease. The calculated calcium score is 0. Other findings: Mild, bilateral dependent and basilar atelectasis. There are scattered, sub-6 mm groundglass and solid pulmonary nodules in in both lungs. For reference, there is a 4 mm nodule in the peripheral right lower lobe (series 9, image 42 and a 5 mm groundglass nodule in the lingula (series 9, image 20). There is a small hiatal hernia. Procedure Note Iraida Hung MD - 08/24/2024 EXAMINATION: CORONARY CT ANGIOGRAM HISTORY: 64 y.o. male with hypertension, tobacco dependence who presents for a consultation for abnormal stress test. Had an EKG done before surgery that showed RBBB. Stress test was done for further evaluation, which showed small, mild fixed perfusion defect involving the mid inferoseptal segment TECHNIQUE: CT angiography of the coronary arteries was performed after the administration of 92 mL of Optiray 350. Images were also obtained precontrast for the purposes of calcium scoring. 0 mg of metoprolol was administered intravenously prior to the examination. The patient's heart rate and blood pressure at the time of the examination were 70 beats per minute and 116/84 mmHg. Images were transferred to a 3D workstation for additional post-processing. FINDINGS: The coronary arteries are left system dominant. There is no anomalous coronary origin or course. Right coronary system: No evidence of atherosclerotic disease. Left coronary system: There is a ramus intermedius. No evidence of atherosclerotic disease. The calculated calcium score is 0. Other findings: Mild, bilateral dependent and basilar atelectasis. There are scattered, sub-6 mm groundglass and solid pulmonary nodules in in both lungs. For reference, there is a 4 mm nodule in the peripheral right lower lobe (series 9, image 42 and a 5 mm groundglass nodule in the lingula (series 9, image 20). There is a small hiatal hernia. IMPRESSION: 1. No evidence of coronary artery disease. 2. Sub-6mm solid and groundglass nodules in both lungs. Compare to prior imaging to assess group home stability. If unavailable, low dose chest CT is recommended in 6 months. Recommend follow up of the Incidental lung nodule Additional Imaging In 6 Months with low dose chest CT. Dictated by: Gilda Roa MD The radiology attending physician has personally reviewed this study, and had reviewed and/or edited this written report and agrees with it. Electronically signed by: Iraida Hung M.D. Roz Yousif MD IMG CT PROCEDURES Final Result * (ABNORMAL) POCT creatinine (08/24/2024 9:18 AM CDT) Creatinine POC 0.7(L) 0.8 - 1.3 mg/dL Blood 08/24/2024 9:18 AM CDT 08/24/2024 9:18 AM CDT us Sonny Chavez MD LAB POCT ORDERABLES - DEVICE Final Result [facility] [place] [address] * Stress Test for Myocardial Perfusion (07/27/2024 3:31 PM CDT) Anatomical Region Laterality Modality Other us Historical Provider CV STRESS PROCEDURES Edit ed Result - Final from Last 3 Months Insurance [facility] MEDICARE ADVANTAGE Care Teams Grinder Dresser Relationship Specialty Start Date End Date Sonny Chavez MD [address] [facility] [place] [address] PCP - General Family Practice 08/11/24
--- OUTSIDE RECORDS SUMMARY | 2024-10-11 08:40 | XMS_ITS | Referral Summary ---
Author Organization [facility] [address] [place] [address] 162 Address [address] [place] [address] Care Team Providers Care Machine Tank Operator Name Role Phone Sonny Chavez MD Primary Care Provider Encounters Date Type Department Care Team Description 08/29/2024 Results Follow-Up [facility] Cardiology [address] [facility] [address] [place] [phone] Roz Yousif MD CTA Heart and Coronary Arteries W Morphology when Performed 08/29/2024 Telephone [facility] Cardiology [address] [facility] [address] [place] [address] Roz Yousif MD 08/24/2024 Orders Only [facility] [address] [place] [address] Gavi West RN 08/24/2024 8:44 AM CDT - 08/24/2024 11:59 PM CDT Hospital Encounter [facility]) [address] [place] [address] Cardiovascular stress test abnormal Discharge Disposition: Discharge to home or self care 08/12/2024 Orders Only [facility] Cardiology [address] [facility] [address] [place] [address] Alize Nettels MD 08/11/2024 Orders Only [facility] Cardiology [address] [facility] [address] [place] [address] Alize Nettles MD 08/11/2024 2:30 PM CDT Office Visit [facility] Cardiology [address] [place] [address] Roz Yousif MD Cardiovascular stress test abnormal (Primary Dx); Nonspecific abnormal results of cardiovascular function study; Left anterior fascicular block; Dyspnea on exertion; Primary hypertension; Tobacco dependence 08/04/2024 Telephone [facility] Cardiology [address] [place] [phone] Kameron Thakkar MD from Last 3 Months Allergies No known active allergies Medications amLODIPine [...] 08/11/2024 Primary hypertension 08/11/2024 Tobacco dependence 08/11/2024 Social History Tobacco Use Types Packs/Day Years Used Date Smoking Tobacco: Every Day Cigarettes Passive Smoke Exposure: Past Tobacco Cessation:Ready to Q uit: Not Asked; Counseling Given: Not Answered Sex and Gender Information Value Date Recorded Sex Assigned at Not on file 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 Compare to prior imaging to assess correction stability. If unavailable, low dose chest CT [...] lungs. Compare to prior imaging to assess correction stability. If unavailable, low dose chest CT is recommended in 6 months. Recommend follow up of the Incidental lung nodule Additional Imaging In 6 Months with low dose chest CT. Dictated by: Gilda Roa MD The radiology attending physician has personally reviewed this study, and had reviewed and/or edited this written report and agrees with it. Electronically signed by: Iraida Hung M.D. us Ripa Elias Yousif MD IMG CT PROCEDURES Final Result * (ABNORMAL) POCT creatinine (08/24/2024 9:18 AM CDT) Creatinine POC 0.7(L) 0.8 - 1.3 mg/dL Blood 08/24/2024 9:18 AM CDT 08/24/2024 9:18 AM CDT Sonny Chavez MD LAB POCT ORDERABLES - DEVICE Final Result Performing Organization Address City/State/[facility] [place] Phone Number [facility] Department [place] [address] * Stress Test for Myocardial Perfusion (07/27/2024 3:31 PM CDT) Anatomical Region Laterality Modality Other Historical Provider CV STRESS PROCEDURES Edit ed Result - Final from Last 3 Months Insurance [facility] MEDICARE ADVANTAGE [facility] MEDICARE ADVANTAGE Care Teams Machine Tank Operator Relationship Specialty Start Date End Date Sonny Chavez MD [address] [facility] [address] [address] PCP - General Family Practice 08/11/24
[2024-10-11 08:45] VITALS: BP 127/98; PULSE 65; RESP 20; TEMP 37; O2SAT 98
--- NOTE | 2024-10-11 09:46 | WPDHPUPDATE1 ---
History and Physical Update Update Date/Time: 10/11/24 09:46 History and Physical has been reviewed, including an updated exam of the patient. There are NO changes in the patient's condition. Risks, benefits, and alternatives have been discussed and questions answered. Patient agrees to proceed with procedure.
--- NOTE | 2024-10-11 09:47 | P.OP_ITS ---
Procedure Note - Detailed Date of Procedure 10/11/24 Pre-op Diagnosis Lumbosacral Spondylosis w/o Myelopathy or Radicul Post-op Diagnosis Same Procedure Performed Diagnostic bilateral Lumbar Medial Branch/Dorsal Ramus Blocks at L2, L3, L4, L5 Treating the bilateral L3-4, L4-5, L5-S1 Facet Joints Under Fluoroscopic Guidance and with Contrast Control. (6 levels blocked). Surgeon Jean Paul Machuca MD Freelance Patternmaker None. Anesthesia Local Description of Procedure INFORMED CONSENT: Risks, benefits and alternatives to the procedure were discussed in detail with the patient who expressed explicit understanding and consent to proceed. Patient was informed verbally and in written form regarding the risks associated with the procedure including the low risk of serious infection, bleeding/bruising, allergic reaction, nerve or organ injury, paralysis, procedural site pain or discomfort, worsening pain and/or mobility, failure to treat and/or disfigurement. The patient expressed explicit understanding and consent to proceed. All materials required for the procedure were available prior to procedure start. Site and side were marked prior to procedure and confirmed in the presence of the patient. PROCEDURE IN DETAIL: The patient was brought to the procedural suite and placed in the prone position. Patient was made comfortable with use of pillows under the head/chest, hips and ankles. Skin overlying the injection site on the affected side(s) was prepared broadly with ChloraPrep applicator and draped in a sterile manner. Aseptic technique was used throughout. The endplates of the vertebral bodies at the site(s) of interest were aligned in the AP view. Ipsilateral oblique angulation was utilized to optimize visualization of the intersection between the superior articulating process and transverse process at each target site. Local anesthesia was established by infiltration with approximately 5 mL of 1% lidocaine via a 1-1/2 inch 27-gauge needle. A 25-gauge 3.5 inch Quincke spinal needle was advanced until the needle tip contacted periosteum at the target site, right L2. Lateral view was utilized to confirm the appropriate placement of the needle tip just anterior to the facet line and superior to the pedicle. In the Lateral view, 0.25 mL of Omnipaque 300 contrast medium was injected after negative aspiration for CSF, blood or other bodily fluid, showing appropriate extra-articular spread of contrast without evidence of intravascular, foraminal or intrathecal placement. A 0.5 mL solution of 0.5% PF bupivacaine was injected after negative repeat aspiration. Appropriate spread of the injectate was confirmed with washout of previously injected contrast. No parasthesias were elicited. Needle was removed completely intact without difficulty. The same exact procedure was repeated for all remaining levels on the ipsilateral side, right L3, L4, L5 medial branches/dorsal ramus, modified as necessary to accommodate for the new target location with identical findings and results and no evidence of complication. The same exact procedure was repeated for all remaining levels on the contralateral side, left L2, L3, L4, L5 medial branches/dorsal ramus, modified as necessary to accommodate for the new target location with identical findings and results and no evidence of complication. Images were saved and documented in the patient chart. Patient's skin was cleaned and sterile bandage applied. The patient tolerated the procedure well. The patient was transported to the recovery area in stable condition where they were observed for an appropriate amount of time prior to discharge, without evidence of complication. Patient was instructed on the appropriate completion of a pain diary over the next 12-24 hours. The patient was instructed to avoid excessive activity for the next 48 hours, including climbing and frequent use of stairs. Showers only for 48 hours. They were instructed not to drive or operate heavy machinery for 24 hours. They are to monitor for severe headaches, fevers, chills, night sweats, erythema/swelling at the site or any other signs of infection, bleeding/bruising, bowel or bladder changes as well as new pain, weakness or numbness in the upper or lower extremity. Should they notice these changes, they are instructed to call our office immediately or report directly to the nearest Emergency Department if no answer or if after posted office hours. COMPLICATIONS: None COMMENTS: None CONTRAST WASTED: 28.0 mL Omnipaque 300. Complications No immediate complications Condition Stable Disposition Same day [facility] Billing Surgery - Charge Forward: Surgery Billing
[2024-10-11 09:56] VITALS: BP 121/78; PULSE 59; RESP 15; O2SAT 98
[2024-10-11 10:06] VITALS: BP 126/76; PULSE 61; RESP 12; O2SAT 98
[2024-10-11 10:10] VITALS: PULSE 62; RESP 15; O2SAT 98
[2024-10-11] MEDS: LIDOCAINE 1% PF INJ 5 ML VIAL INFILTRATE (10:11)
[2024-10-11] MEDS: BUPivacaine HCL 0.5% 10 ML AMP INFILTRATE (10:11)
[2024-10-11 10:15] VITALS: BP 113/83; PULSE 63; RESP 15; O2SAT 98
== END 2024-10-11 10:29 | disposition home or self-care (01) ==
PROVIDERS: PCP Family Medicine; Visit Provider Anesthesiology Pain Medicine
PROC: (CPT 64493; principal; 2024-10-11 09:35)
DX: M47.817 Spondylosis without myelopathy or radiculopathy, lumbosacral region (principal); G89.29 Other chronic pain
CPT/HCPCS: 64493 ×2; 64494 ×2; 64495 ×2; 99199

== ENCOUNTER 2024-10-25 08:33 | Day surgery (SDC) | payer MEDICARE, SELFPAY ==
[2024-10-21 10:51] VITALS: BMI 30.6
--- NOTE | ~2024-10-25 | XR_ITS ---
XR fluoroscopy no charge Indication: Bilateral L2, L3, L4 and L5 medial branch/dorsal ramus nerve block TECHNIQUE: Fluoroscopy used during Bilateral L2, L3, L4 and L5 medial branch/dorsal ramus nerve bloc k performed by [Jean Paul Machuca MD] on 10/25/2024. 78 seconds of fluoroscopy with 13 fluoroscopic images captured. FINDINGS: Correlate with procedure note. IMPRESSION: Fluoroscopy used during Bilateral L2, L3, L4 and L5 medial branch/dorsal ramus nerve bloc k. Reviewed, dictated and finalized at location [] IMPRESSION: Fluoroscopy used during Bilateral L2, L3, L4 and L5 medial branch/d orsal ramus nerve block.
--- NOTE | 2024-10-25 06:50 | WPDHPUPDATE1 ---
History and Physical Update Update Date/Time: 10/25/24 06:50 History and Physical has been reviewed, including an updated exam of the patient. There are NO changes in the patient's condition. Risks, benefits, and alternatives have been discussed and questions answered. Patient agrees to proceed with procedure.
--- NOTE | 2024-10-25 06:51 | P.OP_ITS ---
Procedure Note - Detailed Date of Procedure 10/25/24 Pre-op Diagnosis lumbosacral spondylosis, chronic low back pain Post-op Diagnosis Same Procedure Performed Diagnostic bilateral Lumbar Medial Branch/Dorsal Ramus Blocks at L2, L3, L4, L5 Treating the bilateral L3-4, L4-5, L5-S1 Facet Joints Under Fluoroscopic Guidance and with Contrast Control. ( 6 levels blocked). Surgeon Jean Paul Machuca MD Traffic Expert None. Anesthesia Local Description of Procedure INFORMED CONSENT: Risks, benefits and alternatives to the procedure were discussed in detail with the patient who expressed explicit understanding and consent to proceed. Patient was informed verbally and in written form regarding the risks associated with the procedure including the low risk of serious infection, bleeding/bruising, allergic reaction, nerve or organ injury, paralysis, procedural site pain or discomfort, worsening pain and/or mobility, failure to treat and/or disfigurement. The patient expressed explicit understanding and consent to proceed. All materials required for the procedure were available prior to procedure start. Site and side were marked prior to procedure and confirmed in the presence of the patient. PROCEDURE IN DETAIL: The patient was brought to the procedural suite and placed in the prone position. Patient was made comfortable with use of pillows under the head/chest, hips and ankles. Skin overlying the injection site on the affected side(s) was prepared broadly with ChloraPrep applicator and draped in a sterile manner. Aseptic technique was used throughout. The endplates of the vertebral bodies at the site(s) of interest were aligned in the AP view. Ipsilateral oblique angulation was utilized to optimize visualization of the intersection between the superior articulating process and transverse process at each target site. Local anesthesia was established by infiltration with approximately 5 mL of 1% lidocaine via a 1-1/2 inch 27-gauge needle. A 25-gauge 3.5 inch Quincke spinal needle was advanced until the needle tip contacted aleida osteum at the target site, right L2. Lateral view was utilized to confirm the appropriate placement of the needle tip just anterior to the facet line and superior to the pedicle. In the Lateral view, 0.25 mL of Omnipaque 300 contrast medium was injected after negative aspiration for CSF, blood or other bodily fluid, showing appropriate extra-articular spread of contrast without evidence of intravascular, foraminal or intrathecal placement. A 0.5 mL solution of 2.0% PF lidocaine was injected after negative repeat aspiration. Appropriate spread of the injectate was confirmed with washout of previously injected contrast. No parasthesias were elicited. Needle was removed completely intact without difficulty. The same exact procedure was repeated for all remaining levels on the ipsilateral side, right L3, L4, L5 medial branches/ dorsal ramus, modified as necessary to accommodate for the new target location with identical findings and results and no evidence of complication. The same exact procedure was repeated for all remaining levels on the contralateral side, left L2, L3, L4, L5 medial branches /dorsal ramus, modified as necessary to accommodate for the new target location with identical findings and results and no evidence of complication. Images were saved and documented in the patient chart. Patient's skin was cleaned and sterile bandage applied. The patient tolerated the procedure well. The patient was transported to the recovery area in stable condition where they were observed for an appropriate amount of time prior to discharge, without evidence of complication. Patient was instructed on the appropriate completion of a pain diary over the next 12-24 hours. The patient was instructed to avoid excessive activity for the next 48 hours, including climbing and frequent use of stairs. Showers only for 48 hours. They were instructed not to drive or operate heavy machinery for 24 hours. They are to monitor for severe headaches, fevers, chills, night sweats, erythema/swelling at the site or any other signs of infection, bleeding/bruising, bowel or bladder changes as well as new pain, weakness or numbness in the upper or lower extremity. Should they notice these changes, they are instructed to call our office immediately or report directly to the nearest Emergency Department if no answer or if after posted office hours. COMPLICATIONS: None COMMENTS: None CONTRAST WASTED: 28.5mL Omnipaque 300. Complications No immediate complications Condition Stable Disposition Same day [facility] Billing Surgery - Charge Forward: Surgery Billing
[2024-10-25 09:30] VITALS: BP 123/97; PULSE 72; RESP 16; O2SAT 97
--- OUTSIDE RECORDS SUMMARY | 2024-10-25 09:45 | XMS_ITS | Encounter Summary ---
Author Organization [facility] Healthcare Address [address] [place] [address] Care Team Providers Care Customer Development Manager Name Role Phone Sonny Chavez MD Primary Care Provider Encounter Details Date Type Department Care Team (Late st Contact Info) Description 10/19/2024 Telephone [facility] Medical Group Cardiology [address] [place] [address] Yaima Faith NP [address] [place] [address] Social History Tobacco Use Types Packs/Day Years Used Date Smoking Tobacco: Every Day Cigarettes Passive Smoke Exposure: Past Sex and Gender Information Value Date Recorded Sex Assigned at Not on file 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 Provided him with the number for radiology at [facility] for assistance. * Telephone Encounter - Gavi Shabazz - 10/19/2024 11:24 AM CDT Pt requesting we send a disc with his CTA from August to his PCP Dr. Chavez and his Traffic Sign Erection Supervisor Dr. Marion with [facility]. He stated they have reached out by faxing a request for it butthey have not heard back I didn't see any requests in the chart please advise thank you Contact: documented in this encounter Plan of Treatment Not on file documented as of this encounter Visit Diagnoses Not on filedocumented in this encounter Care Teams Customer Development Manager Relationship Specialty Start Date End Date Sonny Chavez MD [address] [place] [id number] PCP - General Family Practice 08/11/24 documented as of this encounter
--- OUTSIDE RECORDS SUMMARY | 2024-10-25 09:45 | XMS_ITS | Encounter Summary ---
Author Organization [facility] Healthcare Address [address] [place] [address] Care Team Providers Care Hemmer Automatic Name Role Phone Sonny Chavez MD Primary Care Provider Encounter Details Date Type Department Care Team (Late st Contact Info) Description 08/29/2024 Results Follow-Up 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
--- OUTSIDE RECORDS SUMMARY | 2024-10-25 09:45 | XMS_ITS | Clinical Summary ---
Author Organization [facility] [address] [address] [place] [address] [address] [place] [address] Care Team Providers Care Heavy Threader Name Role Phone Sonny Chavez MD Primary [...] Encounters Date Type Department Care Team Description 10/19/2024 Telephone [facility] Medical Group Cardiology [address] [facility] [address] [place] [address] Yaima Faith NP 08/29/2024 Results Follow-Up [facility] Medical [facility] Cardiology [facility] [address] [place], [place] [address]SHELBY bauer [address] Roz Yousif MD CTA Heart and Coronary Arteries W Morphology when Performed 08/29/2024 Telephone [facility] Cardiology [address] [facility] [address] [place] [address] Roz Yousif MD 08/24/2024 8:44 AM CDT - 08/24/2024 11:59 PM CDT Hospital Encounter [facility] ([facility]) [address] [place] [address] Cardiovascular stress test abnormal Discharge Disposition: Discharge to home or self care 08/24/2024 Orders Only [facility] ([facility]) [address] [place] [address] Gavi West RN 08/12/2024 Orders Only [facility] Medical [facility] Cardiology [address] [place] [address] Alize Nettles MD 08/11/2024 2:30 PM CDT Office Visit [facility] Medical [facility] Cardiology [address] [place] [address] Roz Yousif MD Cardiovascular stress test abnormal (Primary Dx); Nonspecific abnormal results of cardiovascular function study; Left anterior fascicular block; Dyspnea on exertion; Primary hypertension; Tobacco dependence 08/11/2024 Orders Only [facility] Medical [facility] Cardiology [address] [place] [address] Alize Nettles MD 08/04/2024 Telephone [facility] Medical [facility] Cardiology [address] [place] [address] Kameron Thakkar MD from Last 3 Months [...] on file 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 Compare to prior imaging to assess alf stability. If unavailable, low dose chest CT [...] lungs. Compare to prior imaging to assess oil heaterman stability. If unavailable, low dose chest CT [...] LAB POCT ORDERABLES - DEVICE Final Result [facility] Department [place] [address] * Stress Test for Myocardial Perfusion (07/27/2024 3:31 PM CDT) Anatomical Region Laterality Modality Other us Historical Provider MD LEMONS STRESS PROCEDURES Edit ed Result - Final from Last 3 Months Insurance [facility] Address: [address] [address] [place] [address] [facility] Address: [address] [address] [place] [address] Care Teams Heavy Threader Relationship Specialty Start Date End Date Sonny Chavez MD [address] [place] [address] [address] PCP - General Family Practice 08/11/24
--- OUTSIDE RECORDS SUMMARY | 2024-10-25 09:45 | XMS_ITS | Referral Summary ---
Author Organization [place] [address] [address] [place] [address] [address] [place] [address] Care Team Providers Care Grey Washer Name Role Phone Sonny Chavez MD Primary Care Provider Encounters Date Type Department Care Team Description 10/19/2024 Telephone [facility] Cardiology [address] [place] [address] [address] [place] [address] Yaima Faith NP 08/29/2024 Results Follow-Up [facility] Cardiology [address] [facility] [address] [place] [phone] Roz Yousif MD CTA Heart and Coronary Arteries W Morphology when Performed 08/29/2024 Telephone [facility] Cardiology [address] [place] [address] [address] [place] [address] Roz Yousif MD 08/24/2024 Orders Only [facility] Radiology [facility] ([facility]) [address] [place] [address] Gavi West RN 08/24/2024 8:44 AM CDT - 08/24/2024 11:59 PM CDT Hospital Encounter [facility] Radiology [facility] ([facility]) [address] [place] [address] Cardiovascular stress test abnormal Discharge Disposition: Discharge to home or self care 08/12/2024 Orders Only [facility] Cardiology [address] [place] [address] [address] [place] [address] ProviderAlize MD 08/11/2024 Orders Only [facility] Medical Group Cardiology [address] [facility] [address] [place] [address] ProviderAlize MD 08/11/2024 2:30 PM CDT Office Visit [facility] Medical Group Cardiology [address] [facility] [address] [place] [address] Roz Yousif MD Cardiovascular stress test abnormal (Primary Dx); Nonspecific abnormal results of cardiovascular function study; Left anterior fascicular block; Dyspnea on exertion; Primary hypertension; Tobacco dependence 08/04/2024 Telephone [facility] Medical Group Cardiology [address] [facility] [address] [place] [address] Kameron Thakkar MD from Last 3 [...] on file 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 Compare to prior imaging to assess mcfp stability. If unavailable, low dose chest CT [...] lungs. Compare to prior imaging to assess mcfp stability. If unavailable, low dose chest CT is recommended in 6 months. Recommend follow up of the Incidental lung nodule Additional Imaging In 6 Months with low dose chest CT. Dictated by: Gilda Roa MD The radiology attending physician has personally reviewed this study, and had reviewed and/or edited this written report and agrees with it. Electronically signed by: Iraida Hung M.D. us [facility] Elias Yousif MD IMG CT PROCEDURES Final Result * (ABNORMAL) POCT creatinine (08/24/2024 9:18 AM CDT) Creatinine POC 0.7(L) 0.8 - 1.3 mg/dL Blood 08/24/2024 9:18 AM CDT 08/24/2024 9:18 AM CDT Sonny Chavez MD LAB POCT ORDERABLES - DEVICE Final Result [facility] [place] [address] * Stress Test for Myocardial Perfusion (07/27/2024 3:31 PM CDT) Anatomical Region Laterality Modality Other Historical Provider CV STRESS PROCEDURES Edit ed Result - Final from Last 3 Months Insurance [facility] MEDICARE [facility] Address: [address] [address] [place] [address] [employer] MEDICARE ADVANTAGE [facility] MEDIC[facility] Address: [address] [address] [place] [address] Care Teams Grey Washer Relationship Specialty Start Date End Date Sonny Chavez MD [facility] [address] [place] [address] PCP - General Family Practice 08/11/24
--- OUTSIDE RECORDS SUMMARY | 2024-10-25 09:45 | XMS_ITS | Continuity of Care Document ---
Author Organization [facility] Address [address] [place] [phone] Phone Care Team Providers Care River Expedition Guide Name Role Phone Rober Kang MD Unavailable Unavailable Advance Directives Directive Yes / No Effective Date File Name No Information Encounters Encounter Description Practice Location Reason(s) For Visit Diagnoses Date Provider Providers Copied on Encounter [facility], [address] [place] [address] [address], , [id number], [place] tel:[phone] [address] [place] Professional No Information 2 Pearl Richter. [address] [facility] [address], [place], [place], [id number], [place]. tel:[phone] Family History Family Member Type Diagnosis Age At Onset No Information Payers Payer name Insurance type Covered democrat ID Authoriza tirodríguez(s) [employer] [id number] Social History Type Description Quantity Date Captured [...]
[2024-10-25 10:33] VITALS: BP 141/65; PULSE 61; RESP 27; O2SAT 96
[2024-10-25] MEDS: LIDOCAINE 2% PF LOCAL INJ 5 ML VIAL 4 ML INFILTRATE (10:39)
[2024-10-25 10:41] VITALS: BP 118/82; PULSE 61; RESP 11; O2SAT 96
[2024-10-25 10:46] VITALS: BP 124/88; PULSE 61; RESP 12; O2SAT 96
[2024-10-25] MEDS: LIDOCAINE 1% PF INJ 5 ML VIAL INFILTRATE (10:50)
[2024-10-25 10:53] VITALS: BP 123/90; PULSE 66; RESP 18; O2SAT 98
== END 2024-10-25 11:10 | disposition home or self-care (01) ==
PROVIDERS: PCP Family Medicine; Visit Provider Anesthesiology Pain Medicine
PROC: (CPT 64493; principal; 2024-10-25 10:10)
DX: M47.817 Spondylosis without myelopathy or radiculopathy, lumbosacral region (principal); G89.29 Other chronic pain
CPT/HCPCS: 64493 ×2; 64494 ×2; 64495 ×2; 99199

== ENCOUNTER 2024-11-29 05:58 | Day surgery (SDC) | payer MEDICARE, SELFPAY ==
[2024-11-16 12:43] VITALS: BMI 30.7
--- NOTE | 2024-11-23 13:45 | SUR.PREOP ---
CALLED PT AND LEFT MESSAGE, PT NEEDS TO GO TO [facility] FOR BLOODWORK BEFORE NOVEMBER 29. LAST BMP WAS IN JULY OF 2024 AND POTASSIUM WAS ELEVATED. PT TAKING HCTZ. MESSAGE ASKED PT TO CALL [facility] TO MAKE SURE HE GOT THE MESSAGE
--- NOTE | ~2024-11-29 | XR_ITS ---
XR fluoroscopy no charge Indication: Thermal radiofrequency ablation bilateral L2, L3, L4 and L5 medial branch/dorsal ramus TECHNIQUE: Fluoroscopy used during Thermal radiofrequency ablation bilateral L2, L3, L4 and L5 media l branch/dorsal ramus performed by [Jean Paul Machuca MD] on 11/29/2024. 56 seconds of fluoroscopy with 12 fluoroscopic images captured. FINDINGS: Correlate with procedure note. IMPRESSION: Fluoroscopy used during Thermal radiofrequency ablation bilateral L2, L3, L4 and L5 media l branch/dorsal ramus. Reviewed, dictated and finalized at location B. IMPRESSION: Fluoroscopy used during Thermal radiofrequency ablation bilateral L 2, L3, L4 and L5 medial branch/dorsal ramus.
--- OUTSIDE RECORDS SUMMARY | 2024-11-29 06:01 | XMS_ITS | Clinical Summary ---
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
--- OUTSIDE RECORDS SUMMARY | 2024-11-29 06:01 | XMS_ITS | Referral Summary ---
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 Address: [facility] [address] [place] [address] [address] [facility] Address: [address] [address] [place] [address] Care Teams Associate Artistic Director Relationship Specialty Start Date End Date Sonny Chavez MD [address] [place] [address] [place] [address] PCP - General Family Practice 08/11/24
--- OUTSIDE RECORDS SUMMARY | 2024-11-29 06:01 | XMS_ITS | Continuity of Care Document ---
Author Organization [facility] Address [address] [place] [address] [place] [address] Phone Care Team Providers Care Underwriting Clerk Name Role Phone Rober Kang MD Unavailable Unavailable Advance Directives Directive Yes / No Effective Date File Name No Information Encounters Encounter Description Practice Location Reason(s) For Visit Diagnoses Date Provider Providers Copied on Encounter [facility], [address] [place] [address] [address], [place], [place], [id number], [place] tel:[phone] [address] [place] Professional No Information 2 Pearl Richter. [address] [facility] [address], [place], [place], [id number], [place]. tel:[phone] Family History Family Member Type Diagnosis Age At Onset No Information Payers Payer name Insurance type Covered libertarian ID Authoriza tirodríguez(s) [employer] [id number] Social History Type Description Quantity Date Captured [...]
[2024-11-29 06:20] VITALS: BP 127/87; PULSE 68; RESP 16; TEMP 36.7; O2SAT 100
[2024-11-29] MEDS: LACTATED RINGERS 1,000 ML 30 ML IV CONT ×2 (06:30→08:03)
--- NOTE | 2024-11-29 06:36 | WPDHPUPDATE1 ---
History and Physical Update Update Date/Time: 11/29/24 06:36 History and Physical has been reviewed, including an updated exam of the patient. There are NO changes in the patient's condition. Risks, benefits, and alternatives have been discussed and questions answered. Patient agrees to proceed with procedure.
--- NOTE | 2024-11-29 06:37 | P.OP_ITS ---
Procedure Note - Detailed Date of Procedure 11/29/24 Pre-op Diagnosis Lumbosacral Spondylosis w/o Myelopathy or Radiculo Post-op Diagnosis Same Procedure Performed Thermal Radiofrequency Ablation of the Bilateral Lumbar Medial Branches/Dorsal Ramus at the L2, L3, L4, L5 Levels Treating the Bilateral L3-4, L4-5, L5-S1 Facet Joints Under Fluoroscopic Guidance (6 Levels Treated). Surgeon Jean Paul Machuca MD Healthcare Applications Analyst None. Anesthesia Local (w/ MAC) Description of Procedure INFORMED CONSENT: Risks, benefits and alternatives to the procedure were discussed in detail with the patient who expressed explicit understanding and consent to proceed. Patient was informed verbally and in written form regarding the risks associated with the procedure including the low risk of serious infection, bleeding/bruising, allergic reaction, nerve or organ injury, paralysis, procedural site pain or discomfort, worsening pain and/or mobility, failure to treat and/or disfigurement. The patient expressed explicit understanding and consent to proceed. All materials required for the procedure were available prior to procedure start. Site and side were marked prior to procedure and confirmed in the presence of the patient. PROCEDURE IN DETAIL: The patient was brought to the procedural suite and placed in the prone position. Patient was made comfortable with use of pillows under the head/chest, hips and ankles. ASA standard monitors were applied and used t hroughout the procedure. Skin overlying the injection site on the affected side(s) was prepared broadly with ChloraPrep applicator and draped in a sterile manner. Aseptic technique was used throughout. The endplates of the vertebral bodies at the site(s) of interest were aligned in the AP view. Ipsilateral oblique angulation was utilized to optimize visualization of the intersection between the superior articulating process and transverse process at each target site. Local anesthesia was established by infiltration with approximately 5 mL of 1% lidocaine via a 1-1/2 inch 27-gauge needle divided over each site treated. A 16-gauge 100mm [employer] RF needle with curved 10mm active tip was advanced in the AP view until the needle tip contacted the periosteum at the target site, the right L2 medial branch. Lateral view was utilized to adjust and confirm the appropriate placement of the needle tip just anterior to the facet line, superior to the pedicle and posterior to the foramen. Grounding electrode was in place and functioning. The appropriately-sized RF cannula was inserted into the RF needle and motor stimulation was performed with no subjective or objective evidence of recruited muscle activity with stimulation up to 2.0 volts at a frequency of 2Hz. 1.5 mL of 2.0% PF lidocaine was injected after negative aspiration. After a 90s pause, lesioning was performed to 90 degrees centigrade for 90s ensuring lack of symptoms in the extremity throughout. Needle was rotated 180 degrees and lesioning repeated in a similar manner. Patient tolerated this well. No paresthesias were elicited. Needle was removed completely intact without difficulty. The same procedure was repeated for all intended levels/ structures on the ipsilateral side, right L3, L4, L5 medial branch/dorsal ramus with identical methodology, modified to compensate for new location, with similar results and no evidence of complication. The same exact procedure was repeated for all remaining levels on the contralateral side, left L2, L3, L4, L5 medial branches/dorsal ramus, modified as necessary to accommodate for the new target location with identical findings/results and no evidence of complication. Images were saved and documented in the patient chart. Patient's skin was cleansed and sterile bandage applied. The patient tolerated the procedure well. The patient was transported to the recovery area in stable condition where they were observed for an appropriate amount of time prior to discharge, without evidence of complication. The patient was instructed to avoid excessive activity for the next 48 hours, including climbing and frequent use of stairs. Showers only for 48 hours. They were instructed not to drive or operate heavy machinery for 24 hours. They are to monitor for severe headaches, fevers, chills, night sweats, erythema/swelling at the site or any other signs of infection, bleeding/bruising, bowel or bladder changes as well as new pain, weakness or numbness in the upper or lower extremity. Should they notice these changes, they are instructed to call our office immediately or report directly to the nearest Emergency Department if no answer or if after posted office hours. COMPLICATIONS: None COMMENTS: None Complications No immediate complications Condition Stable Disposition PACU [facility] Billing Surgery - Charge Forward: Surgery Billing
--- NOTE | 2024-11-29 07:06 | P.PNAN_ITS ---
Anes - Initial Pre Proc Eval Procedure: Operation Date: 11/29/24 07:30 Proposed Procedures p Thermal Radiofrequency Ablation Bilateral L2, L3, L4, L5 Medial Branch/Dorsal Ramus Addressing Bilateral L3-4, L4-5, L5-S1 Facet Joints under Fluoroscopic Guidance with Contrast Control - Jean Paul Machuca MD Date/Time: 11/29/24 07:06 Surgeon: Jean Paul Machuca MD Pre Op Diagnosis: Lumbosacral Spondylosis w/o Myelopathy or Radiculo Patient Data Age: 64 Gender: M Height: 1.7 m Weight: 89.85 kg Last Vital Signs Temp 98.1 F 11/29/24 06:20 Pulse 68 11/29/24 06:20 Resp 16 11/29/24 06:20 BP 127/87 11/29/24 06:20 Pulse Ox 100 11/29/24 06:20 O2 Del Method Room Air 11/29/24 06:20 Allergies Allergy/AdvReac Type Severity Reaction Status Date / Time Tetanus Vaccines and Toxoid Allergy Severe Unknown Verified 11/29/24 06:19 Home Medications ?Medication ?Instructions ?Recorded ?Confirmed ?Type acetaminophen 500 mg tablet 500 mg PO Q4-6H PRN Pain 06/23/19 11/29/24 History (Tylenol Extra Strength) fluticasone propionate 50 1 spray intranasal DAILY PRN nasal 01/06/24 11/29/24 History mcg/actuation nasal congestion spray,suspension (Flonase Allergy Relief) naproxen sodium 220 mg tablet (All 220 mg PO Q6H PRN pain 06/14/24 11/29/24 History Day Pain Relief) albuterol sulfate 90 mcg/actuation 1 - 2 inh inhalation Q4-6H PRN 09/02/24 11/29/24 Rx aerosol inhaler shortness of breath or wheezing #8.5 grams amlodipine 10 mg tablet 10 mg PO DAILY 10/21/24 11/29/24 History hydrochlorothiazide 25 mg tablet 25 mg PO DAILY 10/21/24 11/29/24 History metoprolol succinate 25 mg 25 mg PO DAILY 10/21/24 11/29/24 History tablet,extended release 24 hr tadalafil 10 mg tablet See Rx Instructions .Route 10/27/24 11/29/24 Rx .COMPLEX #30 tabs Patient hx anesthesia problems: none Family hx anesthesia problems: none Results Review: All pre-operative results and documents have been reviewed as part of the pre- operative evaluation. [facility] Past Medical History Medical History (Updated 11/23/24 @ 15:57 by Nohemi Barros MA) Coagulation defect Pre-op testing CAMRYN (obstructive sleep apnea) Prediabetes Environmental allergies GERD without esophagitis Hepatic steatosis Visualized on CT abd/pelvis 07/27/20 Lung nodule < 6cm on CT 5 mm and 3 mm nodules in right middle lobe on CT abd/pelvis from 07/27/20 Tobacco abuse Carpal tunnel syndrome of right wrist Diverticulitis of intestine with perforation 2007 Essential (primary) hypertension Chronic neck and back pain Hx of diverticulitis of colon Surgical History Surgical History S/P cubital tunnel release (~2001) History of ankle surgery (~2007) left History of carpal tunnel surgery (~2001) Right hand History of thumb surgery (~2000) History of colon surgery (~2008) 2008 and removed partial colon Family History Family History Mother Diabetes mellitus Obstructive sleep apnea on CPAP Father Hypertension Family history of emphysema Social History Social History Social History: The patient lives with his who is a durable power environmental attorney for healthcare. The patient is a full code. 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 He has 3 daughters. The patient still continues to smoke less than a pack a cigarettes a day for over 46 years. The patient is a former drinker. He does not use any marijuana illicit drugs. Smoking packs per day: 0.75 Smoking cigarettes per day: 15.0 Years smoked: 50 Smoking pack-years: 37.50 Smoking status: Current every day smoker Tobacco type: cigarettes Second hand tobacco smoke exposure: Yes Alcohol intake: former Alcohol use details: QUIT 2014 Substance use: never Substance use type: does not use Lack of Transportation: No Lack of Food: Never True Current Housing: I Do Not Have Housing Concerned About Future Housing: No Difficulty Paying Gas/Electric Bills: No Difficulty Paying for Meds: No Currently Unemployed: No Education: High School Diploma/GED Difficulty w/ Childcare or Family Care: No Living arrangements: with family Occupation/Education: unemployed Additional occupation/education comments: Disability Gender identity (if verbalized by the patient): Male Sexual Orientation (if Verbalized by the Patient): Straight or Heterosexual Spiritual care concerns: No Agree to blood products: Yes Anes - Eval Final PreProcedure Day of Procedure 11/29/24 07:06 Heart: regular rate and rhythm Lungs: clear to auscultation Airway: Mallampati scale class III Neurological: alert and oriented Last oral intake: >/= 8 hours ASA classification: III Anesthetic plan: proceed Anesthesia type and monitoring: monitored anesthesia care Results Review: All pre-operative results and documents have been reviewed as part of the pre- operative evaluation. Informed Consent: The patient's anesthetic plan and its attendant risks and benefits were discussed with the patient/family/POA. Questions were solicited and answers provided to the satisfaction of the patient/family/POA.
[2024-11-29] MEDS: BUPivacaine HCL 0.5% 10 ML AMP INFILTRATE (07:55)
--- NOTE | 2024-11-29 07:56 | WPDANESPN ---
Anes - Prog Note Post-Op Date/Time: 11/29/24 07:56 Vital Signs: Last Vital Signs Temp 98.1 F 11/29/24 06:20 Pulse 68 11/29/24 06:20 Resp 16 11/29/24 06:20 BP 127/87 11/29/24 06:20 Pulse Ox 100 11/29/24 06:20 O2 Del Method Room Air 11/29/24 06:20 Pain Score (VAS): 3 Patient Feedback: Patient satisfied with anesthetic care.
[2024-11-29 08:13] VITALS: BP 92/56; PULSE 66; RESP 18; O2SAT 98
[2024-11-29 08:23] VITALS: BP 88/60; PULSE 66; RESP 15; O2SAT 100
[2024-11-29 08:33] VITALS: BP 97/67; PULSE 66; RESP 15; O2SAT 100
[2024-11-29 08:43] VITALS: BP 106/77; PULSE 66; RESP 16; O2SAT 99
[2024-11-29 08:53] VITALS: BP 118/77; PULSE 68; RESP 15; O2SAT 98
== END 2024-11-29 09:05 | disposition home or self-care (01) ==
PROVIDERS: PCP Family Medicine; Visit Provider Anesthesiology Pain Medicine
PROC: (CPT 64635; principal; 2024-11-29 07:30)
DX: M47.817 Spondylosis without myelopathy or radiculopathy, lumbosacral region (principal)
CPT/HCPCS: 64635; 64636 ×10; 99199